=== PATIENT | female | born 1970 | race Caucasian/White ===

== ENCOUNTER 2019-12-13 14:27 | Inpatient (IN) | payer OTHER ==
[~2019-12-13] VITALS: Ht 170.2 cm; Wt 117.9 kg
[~2019-12-13 14:27] MED LIST: ALDACTONE100 MG PO; AMLODIPINE BESYL5 MG PO; ATIVAN1 MG PO; BACTRIM DS TAB1 EACH PO; BUSPIRONE HCL15 MG PO; BUSPIRONE HCL7.5 MG PO; CELEBREX200 MG PO; COUMADIN10 MG PO; COUMADIN5 MG PO; COUMADIN7.5 MG PO; COZAAR100 MG PO; CYCLOBENZAPRINE10 MG PO; DILAUDID4 MG PO; ENOXAPARIN100 MG/1 M SUB-Q; ENOXAPARIN150 MG/1 M SUB-Q; FLEXERIL10 MG PO; FLOMAX0.4 MG PO; GABAPENTIN100 MG PO; GABAPENTIN400 MG PO; HYDROCODONE-CH473 ML; HYDROXYZINE HCL50 MG PO; KEFLEX500 MG PO; LISINOPRIL-HCT1 EAC1 PO; LISINOPRIL10 MG PO; LOSARTAN-HCTZ1 EAC1 PO; LOSARTAN-HCTZ1 EACH PO; LOVENOX150 MG SUB-Q; LOVENOX30 MG; LOVENOX300 MG/3 M SUB-Q; METHOCARBAMOL750 MG PO; NORCO 10-325 T1 EACH PO; NORCO 5-325 TA1 EACH PO; NORVASC10 MG PO; OMEPRAZOLE20 MG PO; ONDANSETRON ODT4 MG PO; OXYBUTYNIN CHLOR5 M1 PO; OXYCODONE HCL10 MG PO; PERCOCET 10-321 EACH PO; PERCOCET 5-3251 EACH PO; PYRIDIUM200 MG PO; ROBAXIN-750750 MG PO; ROBAXIN500 MG PO; SPIRONOLACTONE100 MG NG; TRAMADOL HCL50 MG PO; WARFARIN SODIUM5 MG PO
[2020-01-20] MEDS ORDERED: ULTRAM50 MG PO (14:00)
--- NOTE | 2020-01-25 11:21 | NUR ---
OR STAFF READY TO TAKE PT-THEY LET ME CHECK WITH PT. SHE IS ANXIOUS, WAITING A LONG TIME FOR TODAY. PT REQUESTED PRAYER STRESS OF THE MOMENT HAS STARTED TO TAKE A TOLL. HAD PRAYER WITH PT FOR STRENGTH AND WISDOM FOR STAFF. PT THANKED ME AND ASKED FOR ME TO FOLLOW UP IN M/S
--- NOTE | 2020-01-25 11:24 | NUR ---
01/25/20 1124 MarkiePastora PERI 0928 PT ARRIVED IN PACU WIDE AWAKE C/O LOW, CENTER OF BACK PAIN. 0940 TORADOL 30MG GIVEN IVP PER DR ORDERS. XRAY AT BEDSIDE. 0950 C/O ANXIETY. NEW ORDERS RECEIVED. 0953 VERSED 2MG GIVEN IVP. 1005 FENTANYL 50MCG GIVEN IVP FOR 10/10 BACK PAIN. REPOSITIONED PT TO L SIDE WITH NO RELIEF. BACK TO LAYING SEMI SOL. 1015 FENTANYL 50MCG GIVEN IVP FOR 10/10 BACK PAIN. PILLOW PLACED UNDER BILAT KNEES WITH NO RELIEF NOTED. PILLOWS REMOVED. 1022 FENTANYL 50MCG GIVEN IVP FOR 10/10 BACK PAIN. ICE PACK PLACED BEHIND BACK FOR RELIEF. 1025 ICE PACK REMOVED WITH NO RELIEF NOTED. 1030 FENTANYL 50MCG GIVEN IVP FOR 9/10 BACK PAIN. PT MOVING TOP HALF OF BODY IN BED WITH NO RELIEF. 1035 SPOKE WITH ANESTHESIA AND NEW ORDERS RECEIVED. 1041 OFIRMEV 1GM GIVEN IV. PT SIPPING ON WATER AND TALKING WITH STAFF. PAIN DOWN TO 8/10. 1100 TO MED SURG ROOM 116. BED PLUGGED IN AND CALL LITE IN PLACE. REPORT GIVEN TO KEVYN Lake RN.
--- NOTE | 2020-01-25 11:42 | NUR ---
PT TO FLOOR VIA STRETCHER WITH TASHA BABIN. PT AWAKE AND RATES PAIN IN BACK 8\10. JUST STARTING TO FEEL KNEE. DENIES NAUSEA NOW OR WITH PAST SURGERY. ADVANCED TO REGULAR DIET AFTER DOING WELL WITH ICE WATER AND JELLO. GIVEN PO OXY TO START BETTER PAIN CONTROL. TRINA SLAB WORKER IN ROOM TO ASSESS BACK PAIN. GAVE VERBAL INSTRUCTIONS TO DO NEURO Q4, FOCUSED ON LOWER EXTREMETIES AND BOWEL\BLADDER CONTROL. PT IS NOW ABLE TO LIFT BOTH FEET AND PLANTAR AND DORSAL FLEX BILATERAL FEET.
--- NOTE | 2020-01-25 12:28 | NUR ---
PT SITTING UP IN BED WATCHING TV. PT APPEARS MORE COMFORTABLE. STATES HER BACK AND KNEE ARE STILL HURTING BUT UNDER CONTROL. PT CONTINUES TO WIGGLE FEET AND DENIES WEAKNESS. PT IS CONCERNED ABOUT HER CURRENT ANTI ANXIETY MEDS SHE IS 81 DAYS ALCOHOL FREE. CALLED DR BROUSSARD AND LEFT MESSAGE ON PHONE.
--- NOTE | 2020-01-25 13:27 | NUR ---
PT BACK IN BED AFTER AMBULATING WITH PLASTER MACHINE TENDER. ABLE TO WALK TO BATHROOM AND AROUND IN ROOM. STILL REPORTING BACK PAIN BUT NO WEAKNESS IN LEGS. VS STABLE. IVF FROM SURG ALMOST DONE. AWAITING CALL FROM DR BROUSSARD REGARDING ANXIETY MEDS.
--- NOTE | 2020-01-25 14:42 | NUR ---
FOUND PT IN BED, WATCHING TV. SHE MENTIONED THAT LUNCH WAS SATISFYING AND STAYED DOWN. PT IN SOME BACK PAIN THAT SHE DID NOT HAVE BEFORE SURGERY. LICENSED APPRAISER CHECKING ON CAUSE-TAKING A TOLL ON PT. PT REQUESTED PRAYER AND INCLUDED NEED FOR BACK TO EASE. PT SEEMED RELIEVED FOLLOWING PRAYER AND ASKED FOR ME TO RETURN TO VISIT. WILL FOLLOW UP
--- NOTE | 2020-01-25 14:52 | NUR ---
pt up to restroom. DID WELL ALTHOUGH VERY PAINFUL. GIVEN AB AND VISTIRIL. FRIEND IN ROOM. NEURO CHECK WNL. DENIES WEAKNESS.
[2020-01-25] MEDS ORDERED: HYDROCHLOROTHIA25 MG PO (15:47)
--- NOTE | 2020-01-25 16:07 | NUR ---
PT SITTING UP IN BED TALKING TO [facility]. GOT UP TO BATHROOM WITH MINIMAL ASSIST. PT PAINFUL 8\10. GIVEN SCHED AND PRN MEDS. LESS SHAKY AFTER VISTIRL BUT STILL VISIBLE.
--- NOTE | 2020-01-25 16:07 | NUR ---
MED REC COMPLETE
--- NOTE | 2020-01-25 17:22 | NUR ---
ASSUMED CARE OF PT. RECIEVED BEDSIDE REPORT FROM KEVYN CORDOVA. PT SITTING UP IN BED WATCHING TV. RATES PAIN 6/10, STATES THIS IS A TOLERABLE LEVEL AND DENIES NEED FOR PAIN MEDS AT THIS TIME. DRESSING TO RIGHT KNEE CDI, ICE TO SURGICAL SITE. GIVEN FRESH WATER. IV SL. SATTING 98% ON RA. PT ALERT AND ORIENTED TO ALL. CALL LIGHT WITHIN REACH.
--- NOTE | 2020-01-25 18:36 | NUR ---
PT SBA WITH WALKER TO RESTROOM. VOIDED WITHOUT DIFFICULTY. ATE ALL OF DINNER, [place] WELL. AMB TO RECLINER. REPORTS RIGHT KNEE PAIN 8/10, SEE EMAR FOR MEDS ADMINISTERED. CALL LIGHT WITHIN REACH.
--- NOTE | 2020-01-25 19:54 | NUR ---
PT UP IN HER RECLINER WITH AFFECTED LEG ELEVATED, ALERT, ORIENTED. ON RA SPO2 98%. IV SAILINE LOCKED. DRESSING IS DRY, CLEAN, INTACT. REPORTED SOME RASH UNDER HER PANDUS. STATED HER PAIN 5/10 BUT PT HAS SOME CHRONIC PAIN AND STATED THIS LEVEL IS TOLERABLE NOW. WILL BE BACK FOR ASSESSMENT.
--- NOTE | 2020-01-25 20:24 | NUR ---
WENT WITH PATIENT WALKED OUT OF THE ROOM AND BACK USING WALKER AND GAIT BELT. PATIENT WENT TO THE BATHROOM. PATIENT DID PM CARE, WASH FACE AND BRUSH TEETH. PATIENT IS BACK IN BED. V/S AND I&O TAKEN AND CHARTED. CUP OF ICE PROVIDED. SCD AND ICE PACK ON. CALL LIGHT IN REACH. PATIENT ASKED FOR PAIN MEDS. PRIMARY RN SETH NOTIFIED.
--- NOTE | 2020-01-25 20:45 | NUR ---
PT CALLED FOR PAIN MEDICATIOM. SEE EMAR FOR MEDICATION ADMINISTRATION. PT BACK IN BED AFTER AMBULATION IN A HALLWAY. DONE WITH ASSESSEMENT.
--- NOTE | 2020-01-25 21:43 | NUR ---
WENT TO PT ROOM RE-ASSESS FOR PAIN. PT IN BED, WATCHING TV AND TEXTING BACK AND FORTH WITH FAMILY AND FRIENDS. BREATHING NORMALLY, NO DISTRESS NOTED. STATED HER PAIN IS 5/10, MOSTLY ON R SIDE OF HER AFFECTED KNEE. STATED IT IS TOLARABLE. ICE PACK APPLIED. WILL BW BACK AROUND 2200 TO MEDICATE WITH SCHEDULED ANALGESICS.
--- NOTE | 2020-01-25 22:32 | NUR ---
PT IN BED, REPORTED PAIN 8/10. SEE EMAR FOR MEDICATIONS ADMINISTRATION. TASHA HERBERT IN ROOM TO ASSIST AND OBSERVE. HELPED PT TO THE BATHROOM, VOIDED WITHOUT DIFFICULTIES. BACK TO BED. REQUESTED LIGHT OFF AND DOOR CLOSED.
--- NOTE | 2020-01-25 23:28 | NUR ---
WENT TO REASSESS PT FOR PAIN. ANYLA APPEARS ASLEEP. NO DISTRESS NOTED, BREATHING NORMALLY. SPO2 96% ON RA.
--- NOTE | 2020-01-26 01:54 | NUR ---
PT CALLED FOR BATHROOM. AMBULATED 1PA WITH WALKER. VOIDED. REPORTED PAIN 8/10 AND SOME AGITATION. SEE EMAR FOR MEDICATIONS ADMINISTRATION. VSS, SOME TACHICARDIA NOTED. MILK AND CRACKERS WERE OFFERED. DONE WITH ASSESSMENT.
--- NOTE | 2020-01-26 04:00 | NUR ---
PT CALLED FOR HRLP TO USE A BATHROOM. BM LARGE. VOIDED. STATED HER PAIN 06/26. SEE EMAR FOR MEDCIATION ADMINISTRATION. BACK TO BED.
--- NOTE | 2020-01-26 06:09 | NUR ---
pt alert, oriented, cooperative with cares. ambulated around the unit. voiding without difficulties, had large bm x1. pt has history of dvt prior knee surgery. has foot pums for prophylaxis. has severe degerative arthritis and chronic pain. she had anxiety which pharmacologiclly managed with hydroxyzine. iv saline locked left arm, 20g. dressing dry, clean, intact. used ice pack at night. some tachycardia noted (98-100). pedal pulse 1+, sensation present, no numbness or tingling. pain management wnl.
--- NOTE | 2020-01-26 07:52 | NUR ---
0722: Report received from Minerva CORDOVA. Pt resting in her bed with her call marino within reach, dressing cdi. Pt states she has some pain but that it is controled at this time.
--- NOTE | 2020-01-26 08:33 | NUR ---
PT RATES HER PAIN AT A 6/10 AT THIS TIME, PT MEDICATED ORDERED, SEE EMAR. PT STATES SHE HAS SOME ANXIETY, ALSO SEE EMAR. RIGHT KNEE DRESSING CDI WITH ICE IN PLACE AND GOOD CIRCULATION NOTED WITH NO CHANGES IN FEELING IN HER FOOT. WILL CONTINUE TO MONITOR.
--- NOTE | 2020-01-26 09:58 | OR ---
[facility] [address], [place] [address] Signed DATE OF OPERATION: 01/25/2020 SURGEON: Elke Broussard MD PREOPERATIVE DIAGNOSIS: End-stage arthritis, right knee. POSTOPERATIVE DIAGNOSIS: End-stage arthritis, right knee. PROCEDURE: Right total knee arthroplasty. ANESTHESIA: Spinal with sedation. SPECIMENS AND COMPLICATIONS: There were no specimens or complications. TOURNIQUET TIME: 90 minutes. IMPLANTS: An Attune PS size 7 femur, a size 6 fixed bearing tibial tray, a 7 mm size 7 PS poly, and a 38 mm all-poly patella. WHAT WAS DONE: The patient was taken to the operating room. After anesthesia was induced, the patient was sedated. The right lower extremity was positioned, prepped and draped in the routine sterile fashion. The leg was exsanguinated with elevation and pneumatic tourniquet on the thigh was inflated to 300 mmHg pressure. The knee was then approached through a straight anterior incision. Skin was divided sharply. Subcutaneous tissue was bluntly spread. A small medial flap was created. An anteromedial arthrotomy performed. The patella was turned on edge and about 10 mm were trimmed off the posterior aspect of the patella and drill holes were made for 38 mm all-poly patella button. We then popped the trial patellar button over the patella and indeed, we had reconstituted the 24 mm patellar height. The patella was then slid into the lateral recess and the knee was flexed. We then digitized the distal femur using the [employer] navigation system. We resected the distal femur in neutral varus-valgus, 3 degrees of flexion and taking 10 mm off the distal femur. We then resected the distal femur and Electronically Signed By: ELKE BROUSSARD MD 01/26/20 0958 PATIENT NAME: OMEGA SHEETS OPERATIVE REPORT DATE OF : 68 REPORT #: [id number] PHYSICIAN: ELKE BROUSSARD MD PCP: DUGLAS CAMPOS PAC REPORT IS CONFIDENTIAL AND NOT TO BE RELEASED WITHOUT AUTHORIZATION [facility] [address], [place] [address] Signed removed the wafers. We then transitioned the navigation system of the proximal tibia and again following the prompts, we digitized the proximal tibia. We then resected the proximal tibia in neutral varus-valgus, removing about 4 mm off the medial side, which was the most worn side and placing in about 3 degrees of posterior slope per the Attune protocol. After cutting the proximal tibia, we removed the wafers. The femoral size was then placed on the distal femur and the femur sized to a size 7. We put a size 7 four-in-one cutting block on the distal femur and cut anteriorly, posteriorly and chamfer cuts. All the bone debris was removed and the notch cutting block was placed on the distal femur. We then cut out the notch. We then trialed the size 7 femoral component, and it fit quite snugly. We placed a size 6 tibial tray on the resected tibia and placed a 7 mm PS poly on the trial. The knee was then cycled. We had excellent stability in flexion, and just a 1 mm or 2 of varus-valgus laxity in extension. The knee was copiously irrigated. We then prepared the tibia with a standard reamer and broach. The femur, tibia and patella were then copiously irrigated and meticulously dried. There was a large bone cyst in the anteromedial tibia from what appeared to be an old ACL tract. We cleaned this out or morselized the anterior chamber cut and packed it into the defect. We then cemented the tibial, femoral and patellar components in place with a 7 mm trial. We held the knee in full extension while the cement cured. Once the cement cured, we removed the trial and removed marginal cementophytes. Again, the knee was irrigated and drained. We were happiest with a 7 mm insert. The 8 was a little too tight in maximum flexion and the 6 could not snug enough. We therefore put the 7 mm poly on the tibial tray, snapped it into place. The wound was irrigated, closed in standard fashion, and sterile dressings were applied. The patient was awakened and taken to recovery room where she arrived in stable condition. Counts were correct and antibiotic protocols were followed. Elke Broussard MD [facility] /[id number] Copies: ~ Electronically Signed By: ELKE BROUSSARD MD 01/26/20 0958 PATIENT NAME: OMEGA SHEETS OPERATIVE REPORT DATE OF : 68 REPORT #: [id number] PHYSICIAN: ELKE BROUSSARD MD PCP: DUGLAS CAMPOS PAC REPORT IS CONFIDENTIAL AND NOT TO BE RELEASED WITHOUT AUTHORIZATION
--- NOTE | 2020-01-26 11:10 | NUR ---
DISCUSSED PLAN OF CARE WITH PATIENT, ROUNDING WHILE PATIENT WORKING WITH PHYSICAL THERAPY.
--- NOTE | 2020-01-26 11:55 | NUR ---
MARIANA WRAP AND CAST PADDING REMOVED. THE FOAM AND OPSITE REMAINS IN PLACE TO INCISION WITH A SCANT AMOUT OF OLD DRAINAGE NOTED. A CALL WAS PLACED DR BROUSSARD FOR CLARIFICATION IF HE WISHES TO HAVE TO OPSITE AND FOAM DRESSING REMOVED WELL. AWAITING A CALL BACK AT THIS TIME.
--- NOTE | 2020-01-26 11:59 | NUR ---
DR BROUSSARD CALLED BACK AND STATES HE WISHES TO LEAVE THE FOAM AND OPSITE IN PLACE.
--- NOTE | 2020-01-26 14:01 | NUR ---
Pt resting in her bed and states she is about to do physical therapy. Dressing has some scant amount of old drainage with no s/s of infection. Pt requesting additional pain medication prior to therapy, see emar.
--- NOTE | 2020-01-26 15:24 | NUR ---
PT RESTING IN HER CHAIR WITH HER FEET ELEVATED AFTER HAVING RECENTLY FINISHED WORKING WITH THERAPY. SHE STATES HER PAIN IS A 7 AT THIS TIME AND SHE STATES HER PAIN IS TOLERABLE AT THIS TIME UNTIL SHE RECEIVES HER SCHEDULED TORADOL.
--- NOTE | 2020-01-26 16:59 | NUR ---
Pt now states her pain is a 6 which she states is acceptable and she reqeusted to go for a walk and is now walking in the halls with the DOCK WORKER.
--- NOTE | 2020-01-26 19:20 | NUR ---
SHIFT REPORT RECIEVED FROM FABIOLA CORDOVA. PT REPORTS 7/10 PAIN IN RIGHT KNEE. RN WILL PROVIDE PRN PAIN MED AND ICE. PT UP TO BR AND BACK TO BED. NO OTHER NEEDS, CALL LIGHT IN REACH.
--- NOTE | 2020-01-26 20:10 | NUR ---
PER REQUEST OF PRIMARY RN, THIS RN IN ROOM TO ADMINISTER PAIN MEDICATION. PRN OXYCODONE ADMINISTERED FOR 8/10 PAIN IN RIGHT KNEE (SEE EMAR). VS AND I&O'S COLLECTED AND CHARTED. FRESH ICE WATER AND ICE PACK ALSO PROVIDED. CALL LIGHT IN REACH.
--- NOTE | 2020-01-26 20:30 | NUR ---
ASSESSMENT COMPLETED. MILD EDEMA NOTED TO INNER RIGHT KNEE. BANDAGING DRY AND INTACT. QUARTER SIZE DRY AREA OF RED ON BANDAGE. CMS INTACT IN RIGHT FOOT, NUMBNESS IN AREA OF LOWER BANDAGE. THIS HAS NOT CHANGED SINCE PREVIOUS SHIFT. LUNGS CLEAR. IV CDI, WNL, FLUSHED WELL. SCHEDULED MEDS PROVIDED. NO OTHER NEEDS AT THIS TIME. CALL LIGHT IN REACH.
--- NOTE | 2020-01-26 22:22 | NUR ---
SCHEDULED MED PROVIDED. NO OTHER NEEDS AT THIS TIME. CALL LIGHT IN REACH.
--- NOTE | 2020-01-26 23:10 | NUR ---
HELPED PT TO THE BATHROOM AND BACK TO BED WITH HER FWW. BEDSIDE TABLE AND CALL LIGHT IN REACH. PT ASKED FOR PAIN MEDS, I INFORMED HER RN HAJA.
--- NOTE | 2020-01-26 23:23 | NUR ---
PT COMPLAINS OF PAIN AND CRAMPING TO INNER RIGHT THIGH. NO REDNESS, WARMTH OR VISIBLE CRAMPING NOTED. CMS INTACT IN RIGHT LEG. PRN MED PROVIDED FOR MUSCLE CRAMPS. NO OTHER NEEDS, CALL LIGHT IN REACH.
--- NOTE | 2020-01-27 01:43 | NUR ---
SCHEDULED MED PROVIDED. CMS INTACT IN BLE WITH NUMBNESS ON MEDIAL RIGHT LEG. NO OTHER NEEDS, CALL LIGHT IN REACH.
--- NOTE | 2020-01-27 03:47 | NUR ---
PT RESTING IN BED, EYES CLOSED. RR EVEN, UNLABORED. CALL LIGHT IN REACH.
--- NOTE | 2020-01-27 04:26 | NUR ---
SCHEDULED MED PROVIDED. PT STATES SHE HAS ANXIETY, PRN ANXIETY MED PROVIDED. ASSESSMENT COMPLETED. EDEMA TO INNER KNEE AND BLE NOTED. NO CHANGES TO DRY, RED BLOOD ON BANDAGING. NUMBNESS TO MEDIAL RIGHT LOWER LEG. CMS INTACT IN FEET AND HANDS. IV DRESSING CHANGED. NO OTHER NEEDS, CALL LIGHT IN REACH.
--- NOTE | 2020-01-27 04:47 | NUR ---
PT HAS SLEPT OFF AND ON THIS SHIFT. PT ANXIETY AND PAIN MANAGED WITH PRN AND SCHEDULED MEDS. IV DRESSING CHANGED, IV FLUSHED WELL, WNL. PT TOLERATED ICE PACKS, FOOT PUMPS, HEEL PTORECTORS AND DIET WELL. PT DID WELL WITH FWW, SBA. PT HAD MUSCLE CRAMPING ON INNER RIGHT THIGH, MANAGED WITH PRN MED. AREA UNDER PANNUS SLIGHTLY RED, NYSTOP USED. PT STATE SHE HAS NUMBNESS TO INNER RIGHT CALF, NO CHANGES. CMS INTACT IN BOTH FEET. EDEMA NOTED IN BLE AND INNER RIGHT KNEE. BANDAGING HAS QUARTER SIZE DRIED RED BLOOD, NO CHANGES OVER SHIFT.
--- NOTE | 2020-01-27 06:29 | NUR ---
PT CALLS TO REPORT 8/10 PAIN IN RIGHT KNEE. PRN PAIN MED PROVIDED. CMS INTACT IN BLE. NO OTHER NEEDS AT THIS TIME. CALL LIGHT IN REACH.
--- NOTE | 2020-01-27 07:46 | NUR ---
PATIENT LYING IN BED WITH EYES OPEN. NURSING REPORT GIVEN AT PATEINT BEDSIDE. RESPIRATIONS EQUAL AND UNLABORED ON RA. RIGHT KNEE DRESSING C/D/I. SCD'S/HEEL PROTECTORS IN PLACE. CALL LIGHT IN REACH.
--- NOTE | 2020-01-27 08:25 | NUR ---
PATIENT LYING IN BED FINISHING BREAKFAST. VISITOR IN ROOM. PATIENT REPORTS PAIN 8/10. MEDICATION ADMINISTERED PER ORDER. LUNCH SOUNDS CLEAR, SLIGHTLY DIMINISHED IN BASES. VITALS STABLE. RESPIRATIONS EQUAL AND UNLABORED ON RA. PATIENT INQUIRING ABOUT NEXT OXY DOSE, NURSE INFORMED PT OF NEXT ADMINISTRATION TIME OF 1030. SCD'S ON, HEEL PROTECTORS REFUSED. CALL LIGHT IN REACH.
--- NOTE | 2020-01-27 10:05 | NUR ---
PT WORKING WITH PHYSICAL THERAPY. REPORTING PAIN 07/27. SCHEDULED [facility] ADMINSTERED.
--- NOTE | 2020-01-27 10:15 | NUR ---
Spoke with Yamila. She states she has been quite painful and does not think she can dc today. She lives at [facility] and has walker, wc, cane, shower chair, and commode from her mother. Will use equipment if needed. 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 Pt states she has prepared meals in advance and thinks she will be able to care for herself. Encouraged to discuss this tomorrow to see how she is doing with PT.
--- NOTE | 2020-01-27 11:49 | NUR ---
PATIENT CALL TO GO TO THE REST ROOM . PATIENT AMBULATED BY HER SELF WITH A STAND BY ASSISIT. PATIENT IS BACK TO HER BED HEEL PUMPS ARE BACK ON PATIENT FRESH WATER WAS GIVEN AND CALL LIGHT IN REACH.
--- NOTE | 2020-01-27 11:50 | NUR ---
PATIENT SITTING UP IN BED WATCHING TV. ACCIDENTALLY PUSHED CALL BUTTON. PATIENT STATES PAIN IS NOW 4/10 AFTER PAIN MED ADMINISTRATION AND SHE IS COMFORTABLE. SCD'S IN PLACE. PATIENT REMOVED ICE PACKS FROM RT KNEE. NO ADDITIONAL NEEDS REPORTED AT THIS TIME. CALL LIGHT IN REACH.
--- NOTE | 2020-01-27 12:26 | NUR ---
PT SITTING UP IN BED, WATCHING TV AND STARTING LUNCH. I COULD TELL THAT SHE WAS STRUGGLING. PAIN IS REALLY INTENSE SINCE AM P.T. BUT WORKING HARD TO STAY THE COURSE. PT FINDS COMFORT IN PRAYER, WE PRAYED FOR STRENGTH, EASE OF PAIN AND ABILITY TO CONTINUE TO REHAB. GAVE PT A G.POST, SHE THANKED ME.
--- NOTE | 2020-01-27 14:20 | NUR ---
PATIENT LYING IN BED WITH EYES OPEN. REPORTS PAIN 8/10. ORAL DILAUDID AND TYLENOL ADMINISTERED. SCD'S IN PLACE, HEEL PROTECTORS REFUSED. ASSESSMENT PERFORMED. LEFT HAND SALINE LOCKED. FLUSHES WELL. RESPIRATIONS EQUAL AND UNLABORED ON RA. CALL LIGHT IN REACH.
--- NOTE | 2020-01-27 16:00 | NUR ---
PT REPORTING PAIN, OXYCODONE AND SCHEDULED TORIDOL ADMINSTERED. PT SITTING UP IN CHAIR. VISITORS IN ROOM. CALL LIGHT IN REACH.
--- NOTE | 2020-01-27 17:25 | NUR ---
PATIENT SITTING UP IN CHAIR EATING DINNER. STATES THAT HER LEFT KNEE WAS PAINFUL IN CURRENT POSITION. NURSE RECLINED CHAIR AND ELEVATED LEG ON PILLOW. APPLIED ICE PACKS. PATIENT STATES REPOSITIONING HELPED. RESPIRATIONS EQUAL AND UNLABORED ON RA. LEFT AC IV WAS HANGING DOWN AND IRRITATING PATIENT. WRAPPED IV IN [place]. PAIN REPORTED AT 5/10. SWCD'S IN PLACE. CALL LIGHT IN REACH.
--- NOTE | 2020-01-27 19:15 | NUR ---
RECEIVED REPORT FROM SN KEVIN. pt RESTING IN BED. NO REQUESTS AT THIS TIME. RECENTLY MEDICATED FOR PAIN. WHITEBOARD UPDATED. CALL LIGHT WITHIN REACH.
--- NOTE | 2020-01-27 20:26 | NUR ---
DISCUSSED PAIN MANAGEMENT AT LENGTH. pt AGREEABLE TO PLAN. UP TO VOID AND BACK TO BED 1PA FWW. ASSESSMENT DONE. MEDICATIONS GIVEN (SEE MAR). VITALS AND I&O RECORDED. NO FURTHER REQUESTS AT THIS TIME. CALL LIGHT WITHIN REACH.
--- NOTE | 2020-01-27 22:12 | NUR ---
IN TO GIVE SCHEDULED AND PRN PAIN MEDS FOR 8/10 PAIN. THE LOWER END OF THE DRESSING MEASURED 44.5 CM, MIDDLE 47 CM, AND UPPER 61 CM. EDUCATED pt ON SIGNS AND SYMPTOMS TO WATCH FOR. pt REPORTED FEELING "KIND OF LIKE A STRETCHED MUSCLE, SIMILAR TO WHAT I'VE HAD BEFORE WITH BLOOD CLOTS" WILL CONTINUE TO MONITOR. CALL LIGHT WITHIN REACH.
--- NOTE | 2020-01-27 23:46 | NUR ---
ROUNDED ON pt. NO CHANGE IN STATUS. pt DISCUSSED THAT THE PAIN/SENSATION HAS NOT CHANGED SINCE DR BROUSSARD ASSESSED THE pt. DISCUSSED PAIN MANAGEMENT. pt UP TO VOID AND BACK TO BED. CALL LIGHT WITHIN REACH.
--- NOTE | 2020-01-28 00:34 | NUR ---
WENT TO HER ROOM TO TURN ON HER SCD'S. PT NEEDS NOTHING AT THIS TIME. BEDSIDE TABLE AND CALL LIGHT IN REACH.
--- NOTE | 2020-01-28 01:58 | NUR ---
HELPED PT TO THE BATHROOM WITH HER FWW.BROUGHT HER 4 ICE PACKS AND FRESH ICE WATER.
--- NOTE | 2020-01-28 02:09 | NUR ---
pt UP TO VOID AND BACK TO BED. ASSESSMENT DONE. MEASUREMENTS ON LEG SLIGHTLY LOWER OR UNCHANGED. pt REPORTS NO CHANGE IN PAIN OR SENSATION. PRN AND SCHEDULED PAIN MED GIVEN (SEE MAR). CALL LIGHT WITHIN REACH. NO FURTHER REQUESTS AT THIS TIME.
--- NOTE | 2020-01-28 04:29 | NUR ---
ROUNDED ON pt. REQUESTED PRN PAIN MEDS FOR 7/10 PAIN, STATED "IT'S A LITTLE BETTER" UP TO VOID AND BACK TO BED. NO FURTHER REQUESTS AT THIS TIME. CALL LIGHT WITHIN REACH.
--- NOTE | 2020-01-28 06:14 | NUR ---
pt RESTING IN BED. SUPERVISOR POULTRY FARM IN TO DO VITALS AND I&O. PRN PAIN MEDICATION GIVEN FOR 05/26 PAIN. pt UP TO VOID WITH SUPERVISOR POULTRY FARM. CALL LIGHT WITHIN REACH.
--- NOTE | 2020-01-28 06:29 | NUR ---
pt AWAKE MOST OF NIGHT. PRN PAIN MEDS Q2H, PAIN REMAINED 7/10. COMPLAINING OF NUMBNESS RIGHT INNER CALF. CALF TENDER. pt DENIES CHANGES IN PAIN AND TENDERNESS SINCE PHYSICIAN ASSESSMENT. ENCOURAGED REST. 1PA FWW. IV SL. TOLERATING REGULAR DIET. WORKING WITH PT. USES CALL LIGHT APPROPRIATELY.
--- NOTE | 2020-01-28 07:30 | NUR ---
PATIENT LYING IN BED WITH EYES CLOSED. SCD'S IN PLACE. LIGHTS OFF IN ROOM. USER EXPERIENCE LEAD NURSE STATES THAT PATIENT WAS PAINFUL THROUGHOUT THE NIGHT AND DIDN'T SLEEP WELL. WILL CONTINUE TO MONITOR PAIN LEVELS TODAY. CALL LIGHT IN REACH.
--- NOTE | 2020-01-28 09:00 | NUR ---
PATIENT SITTING UP IN BED FINISHING BREAKFAST. ASSESSMENT PERFORFORMED. RESPIRATIONS EQUAL AND UNLABORED ON RA. PAIN REPORTED 8/10. PATEINT REQUESTED PAIN MEDS. NURSE ASSISTED PATIENT UP TO BATHROOM. PT AMBULATED INDEPENDENTLY USING FWW. NURSE ENCOURAGED PT TO MOVE TO CHAIR AFTER RESTROOM AND ELEVATE RT KNEE ON PILLOW. SCD'S IN PLACE, HEEL PROTECTORS REFUSED. PATIENT ANTICIPATING PHYSICAL THERAPY LATER THIS MORNING. CALL LIGHT IN REACH.
--- NOTE | 2020-01-28 09:30 | NUR ---
Patient sitting up in chair visiting with friend. Patient states that she has already washed her hands and face this am. Patient said she will brush her teeth when she gets up to bathroom again. call button in reach. no other needs at this time.
--- NOTE | 2020-01-28 11:33 | NUR ---
PATIENT IN CHAIR RECLINING WITH RT KNEE ELEVATED ON PILLOW. PERFORMED PAIN RE-ASSESSMENT, PT REPORTS PAIN AAS 5/10. INFORMED PT THAT HER NEXT PAIN MED COULD BE GIVEN AT 1145. PATIENT WAS AGREEABLE WITH THIS. SCD'S IN PLACE. CALL LIGHT IN REACH.
--- NOTE | 2020-01-28 11:36 | NUR ---
PATIENT WORKING WITH PT. AMBULATING HALLWAYS WITH FWW.
--- NOTE | 2020-01-28 11:45 | NUR ---
Spoke with Yamila. States she is painful, but doing well with PT. States Dr. Cano told her she would stay through Friday. Pt. feels she will be ready for dc at that time. Denies needs for DME as she already has at home. Has prepared meals to heat. Plans to dc on Friday.
--- NOTE | 2020-01-28 12:28 | NUR ---
PATIENT CALLED NURSE FOR PAIN MEDICATION. STATES PAIN IS 8/10 AFTER PATIENT WORKED WITH PHYSICAL THERAPY. ADMINISTERED OXY (PATIENT SAYS OXY SEEMS TO BE MORE EFFECTIVE AT REDUCING PAIN FOR HER THAN DILAUDID). PATIENT CURRENTLY EATING LUNCH IN CHAIR, WOULD LIKE TO RETURN TO BED AFTER FINISHING MEAL. DR. DA SILVA ROUNDED ON PATIENT WHILE SHE WAS EATING. INFORMED PATIENT HE BELIEVED THAT SHE IS PROGRESSING WELL. ICE PACKS REFILLED AND PLACED ON RT KNEE. CALL LIGHT IN REACH.
--- NOTE | 2020-01-28 12:46 | NUR ---
PT ADMITTED THAT SHE HAD NOT SLEPT-PAIN TOO INTENSE, AND KNEE SWOLLEN. PT HAD ME PRAY FOR RELIEF-SHE THANKED ME
--- NOTE | 2020-01-28 12:52 | NUR ---
PATIENT REQUESTED TO MOVE BACK TO BED. AMBULATED INDEPENDENTLY WITH FWW. SCD'S IN PLACE. CALL LIGHT IN REACH.
--- NOTE | 2020-01-28 14:32 | NUR ---
PT WORKING WITH PHYSICAL THERAPY.
--- NOTE | 2020-01-28 16:00 | NUR ---
PT REPORTING ANXIETY, PRN MEDICATIONS GIVEN. FLEXIRIL FOR MUSCLE SPASMS ALSO ADMINSITERED. PT UP TO BATHROOM TO VOID. PAIN 05/26. SCHEDULED TORIDOL ADMINSTERED. BACK IN BED WITH FOOT PUMPS IN PLACE. CALL LIGHT IN REACH ICE TO RIGHT KNEE REFRESHED.
--- NOTE | 2020-01-28 16:33 | NUR ---
PT REPORTING 05/26 PAIN. PRN MEDICAITONS GIVEN. CALL LIGHT IN REACH
--- NOTE | 2020-01-28 18:25 | NUR ---
SBA WITH FWW TO AMBULATE IN HALLS PER PT REQUEST. ABLE TO COMPLETE 1 LAP. PT NOW SITTING UP IN CHAIR. ICE PACKS REFRESHED. PERSONAL ITEMS AND CALL LIGHT IN REACH. DENEIS FURTHER NEEDS.
--- NOTE | 2020-01-28 18:27 | NUR ---
PT HAD GOOD DAY, PAIN WELL CONTROLLED. DRESSING WITH SOME SHADOWING, NO NEW DRAINAGE. WORKED WELL WITH PHYSICAL THERAPY. FOOT PUMPS ON WHILE IN BED. UP TO CHAIR FOR MEALS.
--- NOTE | 2020-01-28 19:05 | NUR ---
SHIFT REPORT RECIEVED FROM DUGLAS CORDOVA. NO NEEDS AT THIS TIME. CALL LIGHT IN REACH.
--- NOTE | 2020-01-28 19:48 | NUR ---
BILINGUAL MEDICAL ASSISTANT ROUNDING NOTE. PT ASSISTED FROM BATHROOM BACK TO BED WITH SBA AND FWW. PT TOLERATED WELL. PILLOWS AND BLANKETS HANDED TO PT SO THAT SHE COULD PLACE THEM SHE DESIRED PER PT. PT DENIES QUSTIONS OR CONCERNS AT THIS TIME. CALL LIGHT IN REACH. WHITE BOARD UPDATED.
--- NOTE | 2020-01-28 20:44 | NUR ---
ASSESSMENT, VS AND I&O COMPLETE. NO CHANGES TO BANDAGE FROM PREVIOUS SHIFT, DRIED AREAS OF BLOOD. PAIN 6/10, PRN PAIN MED PROVIDED. PT STATES SHE IS ANXIOUS, PRN ANXIETY MED PROVIDED. SCHEDULED MEDS PROVIDED. EDEMA NOTED TO RIGHT THIGH AND CALF. OLD BRUISING TO RLE NOTED. IV DRESSING CHANGED, FLUSHED WELL. NO OTHER NEEDS, CALL LIGHT IN REACH.
--- NOTE | 2020-01-28 22:53 | NUR ---
SCHEDULED PAIN MED PROVIDED, PAIN 05/26. NO OTHER NEEDS AT THIS TIME. CALL LIGHT IN REACH.
--- NOTE | 2020-01-29 01:05 | NUR ---
PT RESTING IN BED, EYES CLOSED. RR EVEN, UNLABORED. CALL LIGHT IN REACH.
--- NOTE | 2020-01-29 02:01 | NUR ---
SCHEDULED MED PROVIDED. PT UP TO BR AND BACK TO BED. ICE PROVIDED. NO OTHER NEEDS. CALL LIGHT IN REACH.
--- NOTE | 2020-01-29 03:53 | NUR ---
PT STATES PAIN IS 8/10 IN RIGHT THIGH AND KNEE. CMS INTACT. NO RED OR WARM AREAS NOTED. SCHEDULED AND PRN PAIN MED PROVIDED. ICE PACK PROVIDED. NO OTHER NEEDS. CALL LIGHT IN REACH.
--- NOTE | 2020-01-29 05:11 | NUR ---
PT HAS SLEPT OFF AND ON THIS SHIFT. PAIN HAS BEEN WELL MANAGED WITH SCHEDULED AND PRN PAIN MEDS. PT TOLERATED ICE, FOOT PUMPS WELL. IV FLUSHED WELL, WNL. NO CHANGES TO BANDAGE, DRY BLOOD SPOTS. SWELLING AND NUMBNESS UNCHAGED IN RLE.
--- NOTE | 2020-01-29 07:58 | NUR ---
REPORT RECIEVED. PT IN BED, REPORTS PAIN 05/26. CALL LIGHT AND PERSONAL ITEMS WITHIN REACH. DENIES NEEDS.
--- NOTE | 2020-01-29 10:00 | NUR ---
ASSESSMENT COMPLETED. MEDICAITOSN GIVEN. DNEIS NEEDS.
[2020-01-29] MEDS ORDERED: DILAUDID4 MG PO (10:07)
[2020-01-29] MEDS ORDERED: TYLENOL EXTRA500 MG PO (10:09)
[2020-01-29] MEDS ORDERED: OXYCODONE HCL10 MG PO ×2 (10:10→10:20)
[2020-01-29] MEDS ORDERED: COUMADIN10 MG PO (10:11)
[2020-01-29] MEDS ORDERED: XARELTO20 MG PO ×2 (10:11→10:20)
[2020-01-29] MEDS ORDERED: COZAAR100 MG PO (10:21)
--- NOTE | 2020-01-29 10:51 | NUR ---
PATIENT IN BED RESTING. WARM BLANKET GIVEN. PATIENT ASKED FOR PAIN MEDS, RN NOTIFIED. CALL LIGHT IN REACH. NO FURTHER NEEDS AT THIS TIME.
--- NOTE | 2020-01-29 12:39 | NUR ---
PT REPORTING 7/10 PAIN. PRN MEDICATION GIVEN. PT UP TO BATHROOM.
--- NOTE | 2020-01-29 13:40 | NUR ---
PATIENT DRESSED HERSELF IN PERSONAL CLOTHES. PATIENT NOW WORKING WITH PT. CALL LIGHT IN REACH. NO FURTHER NEEDS AT THIS TIME. IV TAKEN OUT UPON RN REQUEST. CATH INTACT AND LOOKED GOOD, RN NOTIFIED.
--- NOTE | 2020-01-29 14:40 | NUR ---
DISCHARGE INSTRUCTIONS PROVIDED. PT WIT HNO QUESTIONS. VERBALIZED UNDERSTADING.
--- NOTE | 2020-01-30 11:16 | DS ---
[facility] [address], [place] [address] Signed ADMISSION DATE: 01/25/2020 DISCHARGE DATE: 01/29/2020 DIAGNOSES AT THE TIME OF DISCHARGE: 1. Osteoarthritis, right knee. 2. History of a deep venous thrombosis with pulmonary embolism. PROCEDURE: Right total knee arthroplasty. HEALTHCARE RECEPTIONIST: Hospitalist benefits sales consultant on the case. HISTORY OF PRESENT ILLNESS: Patient has a long history of severe bilateral lower extremity osteoarthritis. She has gotten to the point where she no longer gets any symptomatic relief with conservative management and she presents for elective total knee arthroplasty on the right side. HOSPITAL COURSE: She was admitted to Day Surgery on the 24 of January. She was taken to the operating room. Under spinal anesthesia, she underwent a right total knee arthroplasty using an Attune PS system with a size #7 femur, a size #6 tibia with a 7 mm poly insert, and a 38 mm all-poly patella. There were no intraoperative complications. Postoperatively, she has done well and progressed rapidly through physical therapy. She does have a long history of chronic pain issues and opioid use, and has therefore required a little more pain medicine than average but is doing quite well alternating Dilaudid with oxycodone. She has never had issues with opioid constipation or nausea. Because of her previous history of DVT/PE, she was bridged with Xarelto because she did not want to take the injections and has been on Coumadin 10 mg. Today her INR is still 1.1. So we will discharge her on another couple days of Xarelto, keep her on 10 mg of Coumadin today and have her followup in the Coumadin clinic either next Friday or next . We have written our prescriptions for Dilaudid 4 mg and oxycodone 10 mg each, which can be taken 1-2 every 4 hours as needed for pain. We also ordered outpatient physical therapy for and would like to see her back in 4 weeks. Her wound is clean and dry. We will ask the staff to change her dressing before she goes home today. Electronically Signed By: LAST BROUSSARD MD 01/30/20 1116 PATIENT NAME: OMEGA SHEETS DISCHARGE SUMMARY DATE OF : 68 REPORT #: [id number] PHYSICIAN: LAST BROUSSARD MD PCP: DUGLAS CAMPOS PAC REPORT IS CONFIDENTIAL AND NOT TO BE RELEASED WITHOUT AUTHORIZATION [address] [address] Signed Last Broussard MD WFB/MODL /[id number] Copies: ~ Electronically Signed By: LAST BROUSSARD MD 01/30/20 1116 PATIENT NAME: OMEGA SHEETS DISCHARGE SUMMARY DATE OF : 68 REPORT #: [id number] PHYSICIAN: LAST BROUSSARD MD PCP: DUGLAS CAMPOS PAC REPORT IS CONFIDENTIAL AND NOT TO BE RELEASED WITHOUT AUTHORIZATION
--- NOTE | 2020-02-01 07:33 | NUR ---
progress notes, h&p, face sheet, pt eval and notes faxed to OP therapy at the [facility].
== END 2020-01-29 14:30 | disposition home or self-care (01) | DRG 470 ==
LOC: MS 12-21 09:30 → DSVR 01-25 05:40 → MS 01-25 06:45
PROVIDERS: ADMIT Orthopaedic Surgery
PROC: 3E0T3BZ Introduction of Anesthetic Agent into Peripheral Nerves and Plexi, Percutaneous Approach (ICD-10-PCS; 2020-01-25)
PROC: 3E0T33Z Introduction of Anti-inflammatory into Peripheral Nerves and Plexi, Percutaneous Approach (ICD-10-PCS; 2020-01-25)
PROC: 0SRC0J9 Replacement of Right Knee Joint with Synthetic Substitute, Cemented, Open Approach (ICD-10-PCS; principal; 2020-01-25 06:45)
DX: M17.11 Unilateral primary osteoarthritis, right knee (principal); Z68.41 Body mass index [BMI] 40.0-44.9, adult; G89.18 Other acute postprocedural pain; I10 Essential (primary) hypertension; F41.9 Anxiety disorder, unspecified; E66.01 Morbid (severe) obesity due to excess calories; K21.9 Gastro-esophageal reflux disease without esophagitis; G89.4 Chronic pain syndrome; Z79.899 Other long term (current) drug therapy; Z79.01 Long term (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; Z87.891 Personal history of nicotine dependence; Z86.718 Personal history of other venous thrombosis and embolism; Z86.711 Personal history of pulmonary embolism; Z74.09 Other reduced mobility
CPT/HCPCS: 01402; 36415; 64447; 73560; 76942; 80048; 85025; 85610; 94760; 94762; 97110; 97116; 97162; 97530; C1713; C1776; J0131; J0690; J1100; J1885; J2001; J2250; J2370; J2704; J2795; J3010; J7121

== ENCOUNTER 2020-03-25 08:33 | Emergency (ER) | payer OTHER ==
[~2020-03-25] VITALS: Ht 170.2 cm; Wt 113.4 kg
--- OUTSIDE RECORDS SUMMARY | ~2020-03-25 | XMS | Encounter Summary ---
Demographics + + + | Address | [address] | | | [place] [address] | + + + | Home Phone | | + + + | Preferred Language | Unknown | + + + | Marital Status | Single | + + + | Hinduism Affiliation | 1013 | + + + | Race | Unknown | + + + | Ethnic Group | Unknown | + + + Author + + + | Author | [facility] | | | and [place]esto[place] | + + + | Organization | [facility] | | | and Ernestoana | [...] Team Providers + +------+ + | Care Director Sports Name | Role | Phone | + +------+ + | Noe Regan DO | PCP | | + +------+ + Reason for Referral Evaluate & Treat (Routine) +--------+ + + + + + | Status | Reason | Specialty | Diagnoses / | Referred By | Referred To | | | | | Procedures | Contact | Contact | +--------+ + + + + + | Closed | Specialty | | Diagnoses | Holland | Justin | | | Services | | Other | Charles Alvarez MD | Carroll | | | Required | | diseases of | [address] | MD Kemal | | | | | vocal cords | [address] | [address] | | | | | Dysphonia | [place] | [address] | | | | | | [place], [place] | [place], [place] | | | | | | [address] | [address] | | | | | | Phone: | Phone: | | | | | | [phone] | [phone] | | | | | | Fax: | Fax: | | | | | | [phone] | [phone] | +--------+ + + + + + Encounter Details +--------+ + + + + | Date | Type | Department | Care Team | Description | +--------+ + + + + | 12/08/ | Orders Only | [facility] [place] | Charles Lino MD | Dysphonia (Primary | | 2014 | | OTOLARYNGOLOGY [address] | [address] | Dx) | | | | [address] | [address] [place], | | | | | [place], [place] | [place] [address] | | | | | [address] | [phone] | | | | | [phone] | | | +--------+ + + + + Social History + + + +--------+ + | Tobacco Use | Types | Packs/Day | Years | Date | | | | | Used | | + + + +--------+ + | Former Smoker | Cigarettes | 0.75 | 15 | Quit: 11/17/2013 | + + + +--------+ + + +---+---+---+ | Smokeless Tobacco: | | [...] as of this encounter Plan of Treatment + + +--------+ + + | Name | Type | Priori | Associated Diagnoses | Order Schedule | | | | ty | | | + + +--------+ + + | Ambulatory referral | Outpatient | Routin | Dysphonia | Expected: | | to ENT | Referral | e | | 12/08/2014, Expires: | | | | | | 12/08/2015 | + + +--------+ + + documented as of this encounter Visit Diagnoses + + | Diagnosis | + + | Dysphonia - Primary | + + documented in this encounter"
--- OUTSIDE RECORDS SUMMARY | ~2020-03-25 | XMS | Encounter Summary ---
Demographics + + + | Address | [address] | | | [place] [address] | + + + | Home Phone | | + + + | Preferred Language | Unknown | + + + | Marital Status | Single | + + + | Mandaen Affiliation | 1013 | + + + | Race | Unknown | + + + | Ethnic Group | Unknown | + + + Author + + + | Author | [facility] | | | and Ernesto[place] | + + + | Organization | [facility] | | | and Ernestoana [...] Team Providers + +------+ + | Care Hydro Pneumatic Tester Name | Role | Phone | + +------+ + | Noe Regan DO | PCP | | + +------+ + Reason for Visit Auth/Cert +--------+--------+ + + + + | Status | Reason | Specialty | Diagnoses / | Referred By | Referred To | | | | | Procedures | Contact | Contact | +--------+--------+ + + + + | Closed | | | Diagnoses | | | | | | | Other | | | | | | | diseases of | | | | | | | vocal cords | | | | | | | Dysphonia | | | | | | | Other | | | | | | | diseases of | | | | | | | vocal cords, | | | | | | | Dysphonia | | | | | | | | | | | | | | Procedures | | | | | | | MI | | | | | | | LARYNGOSCOPY | | | | | | | ,DIRCT,OP | | | | | | | SCOP,EXC | | | | | | | TUMR | | | | | | | BRONCHOSCOPY | | | | | | | /LARYNGOSCOP | | | | | | | Y/ESOPHAGOSC | | | | | | | OPY | | | +--------+--------+ + + + + Encounter Details +--------+ + + + + | Date | Type | Department | Care Team | Description | +--------+ + + + + | 07/12/ | Anesthesia | [facility] | Kolby Benoit | | | 2013 | Event | [facility] OP | MD Willie [address] | | | | | [address] | [address] [place] | | | | | [place] | [address] | | | | | [address] | | | | | | [phone] | | | +--------+ + + + + Anesthesia Record + + + + + | Procedure Name | Responsible | Anesthesia Start | Anesthesia Stop Time | | | Anesthesiologist | Time | | + + + + + | DIRECT | | 07/12/14 1128 | 07/12/14 1234 | | MICROLARYNGOSCOPY W/ | | | | | EXCISION OF LEFT | | | | | VOCAL CORD GROWTH | | | | | (N/A Throat) | | | | + + + + + +----+---+ + + | Da | T | Event | Comment | | te | i | | | | | m | | | | | e | | | +----+---+ + + | 08 | 1 | An Checkout | Pre-use anesthesia machine/equipment checkout. | | /2 | 1 | | | | 6/ | 2 | | | | 20 | 3 | | | | 14 | | | | +----+---+ + + | | 1 | An Start | Reassessment prior to anesthesia induction/procedure. | | | 1 | | | | | 2 | | | | | 8 | | | +----+---+ + + | | 1 | AN | Per surgeon request | | | 1 | Antibiotic | | | | 3 | declined | | | | 2 | | | +----+---+ + + | | 1 | Preoxygenat | | | | 1 | ed | | | | 3 | | | | | 2 | | | +----+---+ + + | | 1 | an luh now | | | | 1 | | | | | 3 | | | | | 2 | | | +----+---+ + + | | 1 | | | | | 1 | | | | | 3 | | | | | 3 | | | +----+---+ + + | | 1 | An | | | | 1 | Induction | | | | 3 | | | | | 7 | | | +----+---+ + + | | 1 | An | | | | 1 | Intubation | | | | 3 | | | | | 9 | | | +----+---+ + + | | 1 | Breathing | | | | 2 | Spontaneous | | | | 1 | ly | | | | 6 | | | +----+---+ + + | | 1 | Oropharynx | | | | 2 | Suctioned | | | | 1 | | | | | 6 | | | +----+---+ + + | | 1 | Moving | | | | 2 | Purposefull | | | | 2 | y | | | | 1 | | | +----+---+ + + | | 1 | Extubated | | | | 2 | Awake | | | | 2 | | | | | 1 | | | +----+---+ + + | | 1 | An Stop | Patient handed off to recovery nurse. | | | 3 | | | | | 4 | | | +----+---+ + + | | 1 | an stop | | | | 2 | data | | | | 4 | | | | | 3 | | | +----+---+ + + +------+ | Meds | +------+ + +--------+ | Name | Total | + +--------+ | midazolam | 2 mg | + +--------+ | lidocaine 2% (PF) | 60 mg | + +--------+ | propofol | 150 mg | + +--------+ | dexamethasone | 10 mg | + +--------+ | ondansetron | 4 mg | + +--------+ | HYDROmorphone | 2 mg | + +--------+ | rocuronium | 20 mg | + +--------+ | lactated ringers (LR) infusion | 750 mL | + +--------+ + + | Name | + + | N2O Flow Rate (L/Min) | + + | O2 Flow Rate (L/Min) | + + | Insp O2 | + + | Exp JELENA | + + | Air Flow Rate (L/Min) | + + + + | No blood administrations on file. | + + +--------+ + + + | Type | Details | Placement | Removal | +--------+ + + + | [READ | 07/12/14; 1053; healing within | 07/12/14 1053 by | 07/12/14 1505 by | | ONLY] | expectations; 07/12/14; 1505 | Michelle Torres, | Gracie Tapia, TASHA | | | | TASHA | | | Clemh | | | | | eral | | | | | IV - | | | | | Single | | | | | Lumen | | | | | | | | | +--------+ + + + | Airway | Mask Ventilation: EZ; Airway | 07/12/14 1145 by | 07/12/14 1221 by | | | Grade: I; Successful Technique: | | Kolby Benoit, | | | Mac; Laryngoscope Blade Size: 3; | | MD | | | Airway Type: endotracheal, oral, | | | | | cuffed, disposable; Size: 6.5; | | | | | Tube Reference Point: secure and | | | | | patent; Trauma: none; Other | | | | | Equipment: tooth guard; Placement | | | | | Check: verified by capnography, | | | | | verified by auscultation; Placed | | | | | By: Anesthesiologist; Removal | | | | | Date: 07/12/14; Removal Time: | | | | | 1221 | | | +--------+ + + + documented in this encounter Social History + + + +--------+ + [...] Visit Diagnoses Not on filedocumented in this encounter Administered Medications + +--------+ +-------+------+------+ | Medication Order | MAR | Action | Dose | Rate | Site | | | Action | Date | | | | + +--------+ +-------+------+------+ | dexamethasone (DECADRON) 10 | Given | 07/12/20 | 10 mg | | | | mg/mL injection Intravenous, | | 14 11:37 | | | | | PRN, Starting Fri07/12/14 at | | AM PDT | | | | | 1137, Anesthesia Intra-op | | | | | | + +--------+ +-------+------+------+ +---+---+ | | | +---+---+ + +-------+ +------+---+---+ | HYDROmorphone (PF) (DILAUDID) 2 | Given | 07/12/20 | 1 mg | | | | mg/mL injection PRN, Pain, | | 14 11:35 | | | | | Starting Fri07/12/14 at 1134, | | AM PDT | | | | | Anesthesia Intra-op | | | | | | + +-------+ +------+---+---+ +-------+ +------+---+---+ | Given | 07/12/20 | 1 mg | | | | | 14 11:34 | | | | | | AM PDT | | | | +-------+ +------+---+---+ +---+---+ | | | +---+---+ + +-------+ +-------+---+---+ | lidocaine (PF) 2% injection | Given | 07/12/20 | 60 mg | | | | PRN, Starting Fri07/12/14 at | | 14 11:37 | | | | | 1137, Anesthesia Intra-op | | AM PDT | | | | + +-------+ +-------+---+---+ +---+---+ | | | +---+---+ + +-------+ +------+---+---+ | midazolam (VERSED) 1 mg/mL | Given | 07/12/20 | 2 mg | | | | injection Intravenous, PRN, | | 14 11:28 | | | | | Anxiety, Starting Fri07/12/14 at | | AM PDT | | | | | 1128, Anesthesia Intra-op | | | | | | + +-------+ +------+---+---+ +---+---+ | | | +---+---+ + +-------+ +------+---+---+ | ondansetron (ZOFRAN) injection | Given | 07/12/20 | 4 mg | | | | PRN, Nausea, Vomiting, Starting | | 14 11:37 | | | | | Fri07/12/14 at 1137, Anesthesia | | AM PDT | | | | | Intra-op | | | | | | + +-------+ +------+---+---+ +---+---+ | | | +---+---+ + +-------+ +--------+---+---+ | propofol (DIPRIVAN) injection | Given | 07/12/20 | 150 mg | | | | PRN, Starting Fri07/12/14 at | | 14 11:37 | | | | | 1137, Anesthesia Intra-op | | AM PDT | | | | + +-------+ +--------+---+---+ +---+---+ | | | +---+---+ + +-------+ +-------+---+---+ | rocuronium (ZEMURON) injection | Given | 07/12/20 | 20 mg | | | | Intravenous, PRN, Starting Tue | | 14 11:37 | | | | | 07/12/14 at 1137, Anesthesia | | AM PDT | | | | | Intra-op | | | | | | + +-------+ +-------+---+---+ +---+---+ | | | +---+---+ documented in this encounter"
--- OUTSIDE RECORDS SUMMARY | ~2020-03-25 | XMS | Encounter Summary ---
Demographics + + + | Address | [address] | | | [place] [address] | + + + | Home Phone | | + + + | Preferred Language | Unknown | + + + | Marital Status | Single | + + + | Restoration Affiliation | 1013 | + + + | Race | Unknown | + + + | Ethnic Group | Unknown | + + + Author + + + | Author | [facility] | | | and [place] | + + + | Organization | [facility] | | | and [place]esto[place] [...] Team Providers + +------+ + | Care Operations Intelligence Name | Role | Phone | + +------+ + | Kelly Alfonso | PCP | | | PA | | | + +------+ + Encounter Details +--------+ + + + + | Date | Type | Department | Care Team | Description | +--------+ + + + + | 05/12/ | Orders Only | [facility] | Bernard Doe, | | | 2017 | | NEPRHOLOGY [facility] | [address] | | | | | [address] | [address] | | | | | [address] [place], [place] | [place], [place] | | | | | [address] | [address] | | | | | [phone] | [phone] | | | | | | | [...] | + +--------+ + + + | EXTERNAL LAB: CBC | Routin | 05/12/2018 | | Results for this | | | e | 12:00 AM | | procedure are in the | | | | PDT | | results section. | + +--------+ + + + | URINALYSIS WITH | Routin | 05/12/2018 | | Results for this | | MICROSCOPIC IF | e | 12:00 AM | | procedure are in the | | INDICATED | | PDT | | results section. | + +--------+ + + + | PROTEIN/CREATININE | Routin | 05/12/2018 | | Results for this | | RATIO, URINE | e | 12:00 AM | | procedure are in the | | | | PDT | | results section. | + +--------+ + + + | URIC ACID | Routin | 05/12/2018 | | Results for this | | | e | 12:00 AM | | procedure are in the | | | | PDT | | results section. | + +--------+ + + + | MAGNESIUM | Routin | 05/12/2018 | | Results for this | | | e | 12:00 AM | | procedure are in the | | | | PDT | | results section. | + +--------+ + + + | RENAL FUNCTION PANEL | Routin | 05/12/2018 | | Results for this | | | e | 12:00 AM | | procedure are in the | | | | PDT | | results section. | + +--------+ + + + documented in this encounter Results Protein/Creatinine Ratio, Urine (05/12/2018 12:00 AM PDT) + + + + + + | Component | Value | Ref Range | Performed | Pathologist | | | | | At | Signature | + + + + + + | Protein/Cre | 382.4 (A) | 0 - 150 | EXTERNAL | | | at Ratio | | | LAB | | + + + + + + + + | Specimen | + + | Urine specimen | | (specimen) | + + + + + | Narrative | Performed At | + + + | PROTEIN, URINE - 26 - 0.0 - 50.0 CREATININE, URINE - 68 | EXTERNAL LAB | + + + + +---------+ + + | Performing | Address | City/State/Zipcode | Phone Number | | Organization | | | | + +---------+ + + | EXTERNAL LAB | | | | + +---------+ + + Urinalysis with Microscopic if Indicated (05/12/2018 12:00 AM PDT) + + + + + + | Component | Value | Ref Range | Performed | Pathologist | | | | | At | Signature | + + + + + + | Color | Yellow | | EXTERNAL | | | | | | LAB | | + + + + + + | Clarity | Slightly Cloudy | | EXTERNAL | | | | | | LAB | | + + + + + + | Spec Grav, | 1.013 | 1.005 - 1.030 | EXTERNAL | | | Fluid | | | LAB | | + + + + + + | Leukocyte | Negative | | EXTERNAL | | | Esterase, | | | LAB | | | Urine | | | | | + + + + + + | Nitrite, | Negative | | EXTERNAL | | | Urine | | | LAB | | + + + + + + | Urobilinoge | Normal | | EXTERNAL | | | n, Urine | | | LAB | | + + + + + + | Total | NEG | | EXTERNAL | | | Protein | | | LAB | | + + + + + + | pH, Urine | 7 | 5 - 9 | EXTERNAL | | | | | | LAB | | + + + + + + | Blood, | Comment: SMALL | | EXTERNAL | | | Urine | | | LAB | | + + + + + + | Ketones | NEG | | EXTERNAL | | | | | | LAB | | + + + + + + | Bilirubin, | Negative | | EXTERNAL | | | Urine | | | LAB | | + + + + + + | Glucose, | Negative | | EXTERNAL | | | Urine | | | LAB | | + + + + + + + + | Specimen | + + | Urine specimen | | (specimen) | + + + + + | Narrative | Performed At | + + + | CASTS - NEGATIVE WBC'S - -4 RBC'S - -4 CRYSTALS - NEGATIVE | EXTERNAL LAB | | BACTERIA - NEGATIVE | | + + + + +---------+ + + | Performing | Address | City/State/Zipcode | Phone Number | | Organization | | | | + +---------+ + + | EXTERNAL LAB | | | | + +---------+ + + External Lab: CBC (05/12/2018 12:00 AM PDT) + + + + + + | Component | Value | Ref Range | Performed | Pathologist | | | | | At | Signature | + + + + + + | WBC | 5.6 | 4.5 - 11.0 10 | EXTERNAL | | | | | | LAB | | + + + + + + | Red Blood | 4.74 | 3.8 - 5.1 10 | EXTERNAL | | | Cells | | | LAB | | | Counted | | | | | + + + + + + | Hemoglobin | 13.6 | 12.0 - 16.0 | EXTERNAL | | | | | g/dL | LAB | | + + + + + + | Hematocrit, | 40.4 | 35 - 45 % | EXTERNAL | | | POC | | | LAB | | + + + + + + | MCV | 85.1 | 81 - 99 fL | EXTERNAL | | | | | | LAB | | + + + + + + | MCH | 29 | 27 - 33 pg | EXTERNAL | | | | | | LAB | | + + + + + + | MCHC | 34 | 30 - 36 g/dL | EXTERNAL | | | | | | LAB | | + + + + + + | Platelet | 302 | 140 - 440 K/ L | EXTERNAL | | | Count | | | LAB | | | Plasma | | | | | + + + + + + | RDW-CV | 15.9 (A) | 10.5 - 15.0 % | EXTERNAL | | | | | | LAB | | + + + + + + | MPV | | fL | EXTERNAL | | | | | | LAB | | + + + + + + | Differentia | | | EXTERNAL | | | l Type | | | LAB | | + + + + + + | % Segmented | 71.3 | 39 - 80 % | EXTERNAL | | | | | | LAB | | | Neutrophils | | | | | + + + + + + | % | 12.8 (A) | 24 - 44 % | EXTERNAL | | | Lymphocytes | | | LAB | | + + + + + + | % Monocytes | 11.3 | 0 - 12 % | EXTERNAL | | | | | | LAB | | + + + + + + | % | 3.7 | 0 - 6 % | EXTERNAL | | | Eosinophils | | | LAB | | + + + + + + | % Basophils | 0.9 | 0 - 2 % | EXTERNAL | | | | | | LAB | | + + + + + + | Absolute | | / L | EXTERNAL | | | Segmented | | | LAB | | | Neutrophils | | | | | + + + + + + | Absolute | | / L | EXTERNAL | | | Lymphocytes | | | LAB | | + + + + + + | Absolute | | / L | EXTERNAL | | | Monocytes | | | LAB | | + + + + + + | Absolute | | / L | EXTERNAL | | | Eosinophils | | | LAB | | + + + + + + | Absolute | | / L | EXTERNAL | | | Basophils | | | LAB | | + + + + + + + + | Specimen | + + | Blood specimen | | (specimen) | + + + +---------+ + + | Performing | Address | City/State/Zipcode | Phone Number | | Organization | | | | + +---------+ + + | EXTERNAL LAB | | | | + +---------+ + + Uric Acid (05/12/2018 12:00 AM PDT) + +-------+ + + + | Component | Value | Ref Range | Performed | Pathologist | | | | | At | Signature | + +-------+ + + + | Uric Acid | 5.1 | 2.3 - 6.6 | EXTERNAL | | | | | | LAB | | + +-------+ + + + + + | Specimen | + + | Blood specimen | | (specimen) | + + + +---------+ + + | Performing | Address | City/State/Zipcode | Phone Number | | Organization | | | | + +---------+ + + | EXTERNAL LAB | | | | + +---------+ + + Magnesium (05/12/2018 12:00 AM PDT) + +-------+ + + + | Component | Value | Ref Range | Performed | Pathologist | | | | | At | Signature | + +-------+ + + + | Magnesium | 1.9 | 1.7 - 2.5 mg/dL | EXTERNAL | | | | | | LAB | | + +-------+ + + + + + | Specimen | + + | Blood specimen | | (specimen) | + + + +---------+ + + | Performing | Address | City/State/Zipcode | Phone Number | | Organization | | | | + +---------+ + + | EXTERNAL LAB | | | | + +---------+ + + Renal Function Panel (05/12/2018 12:00 AM PDT) + +-------+ + + + | Component | Value | Ref Range | Performed | Pathologist | | | | | At | Signature | + +-------+ + + + | Glucose, | 80 | 70 - 100 mg/dL | EXTERNAL | | | Fasting | | | LAB | | + +-------+ + + + | BUN | 18 | 6 - 23 mg/dL | EXTERNAL | | | | | | LAB | | + +-------+ + + + | Creatinine | 0.68 | 0.60 - 1.35 | EXTERNAL | | | | | mg/dL | LAB | | + +-------+ + + + | PHOSPHORUS | | mg/dL | EXTERNAL | | | | | | LAB | | + +-------+ + + + | Albumin | 4.0 | 3.5 - 5.0 | EXTERNAL | | | | | | LAB | | + +-------+ + + + | Na | 140 | 132 - 143 | EXTERNAL | | | | | mmol/L | LAB | | + +-------+ + + + | K | 4.5 | 3.6 - 5.1 | EXTERNAL | | | | | mmol/L | LAB | | + +-------+ + + + | Cl | 104 | 95 - 112 mmol/L | EXTERNAL | | | | | | LAB | | + +-------+ + + + | CO2 | 23 | 19 - 31 mmol/L | EXTERNAL | | | | | | LAB | | + +-------+ + + + | Anion Gap | 17.5 | 7 - 21 mmol/L | EXTERNAL | | | | | | LAB | | + +-------+ + + + | eGFR if not | | | EXTERNAL | | | | | | LAB | | | [place]RA[place]I | | | | | + +-------+ + + + | Phosphorus, | 3.6 | 2.5 - 5.0 | EXTERNAL | | | Inorganic | | | LAB | | + +-------+ + + + | BUN/Creatin | 26.5 | 6.0 - 28.6 | EXTERNAL | | | ine Ratio | | | LAB | | + +-------+ + + + | Calcium | 9.7 | 8.4 - 10.2 | EXTERNAL | | | | | mg/dL | LAB | | + +-------+ + + + | Estimated | 92 | mg/dL | EXTERNAL | | | GFR | | | LAB | | + +-------+ + + + + + | Specimen | + + | Blood specimen | | (specimen) | + + + +---------+ + + | Performing | Address | City/State/Zipcode | Phone Number | | Organization | | | | + +---------+ + + | EXTERNAL LAB | | | | + +---------+ + + documented in this encounter Visit Diagnoses Not on filedocumented in this encounter"
--- OUTSIDE RECORDS SUMMARY | ~2020-03-25 | XMS | Encounter Summary ---
Demographics + + + | Address | [address] | | | [place] [address] | + + + | Home Phone | | + + + | Preferred Language | Unknown | + + + | Marital Status | Single | + + + | Jew Affiliation | 1013 | + + + | Race | Unknown | + + + | Ethnic Group | Unknown | + + + Author + + + | Author | [facility] | | | and [place] | + + + | Organization | [facility] | | | and [place] [...] Team Providers + +------+ + | Care Processing Manager Name | Role | Phone | + +------+ + | Noe Regan DO | PCP | | + +------+ + Reason for Visit +---------+ + | Reason | Comments | +---------+ + | Post Op | vocal cord surgery 07/12/14, patient states that she has some pain | | | still | +---------+ + Evaluate & Treat (Routine) +--------+--------+ + + + + | Status | Reason | Specialty | Diagnoses / | Referred By | Referred To | | | | | Procedures | Contact | Contact | +--------+--------+ + + + + | Closed | | Otolaryngolog | Diagnoses | [place], | Charles Lino | | | | y | hoarseness/ | Noe Alvarez, | MD Kim [address] | | | | | pcp | DO [address] | | | | | [place]/ pt/ | [address] | [address] | | | | | [place] | [place] | [place], | | | | | Procedures | [address] | [place] [address] | | | | | NEW PATIENT | Phone: | Phone: | | | | | | [phone] | [phone] | | | | | | Fax: | Fax: | | | | | | [phone] | [phone] | +--------+--------+ + + + + Encounter Details +--------+---------+ + + + | Date | Type | Department | Care Team | Description | +--------+---------+ + + + | 07/21/ | Office | [facility] | Charles Lino MD | Other diseases of | | 2013 | Visit | OTOLARYNGOLOGY [address] | [address] | vocal cords (Primary | | | | [address] | [address] [place], | Dx) | | | | [place] | [place] [address] | | | | | [address] | [phone] | | | | | [phone] | | | +--------+---------+ + + + Social History + + [...] + + documented as of this encounter Last Filed Vital Signs + + + + + | Vital Sign | Reading | Time Taken | Comments | + + + + + | Blood Pressure | - | - | | + + + + + | Pulse | - | - | | + + + + + | Temperature | - | - | | + + + + + | Respiratory Rate | - | - | | + + + + + | Oxygen Saturation | - | - | | + + + + + | Inhaled Oxygen | - | - | | | Concentration | | | | + + + + + | Weight | 103.4 kg (228 lb) | 07/21/2014 3:08 PM | | | | | PDT | | + + + + + | Height | 170.2 cm (5' 7") | 07/21/2014 3:08 PM | | | | | PDT | | + + + + + | Body Mass Index | 35.71 | 07/21/2014 3:08 PM | | | | | PDT | | + + + + + documented in this encounter Progress Notes Charles Lino MD - 07/21/2014 3:27 PM PDTSee dictation # [id number] signed by Charles Lino MD at 07/21/2014 3:30 PM Charles Henderson MD - 07/21/2014 12:00 AM PDT [facility] [address] [address] FAX: [phone] OFFICE VISIT The patient had a direct laryngoscopy with an excision of a polypoid area on the left vocal arytenoid area. This was carried out about 9 days ago. The patient comes in for followup v dipak. 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 No evidence of any cancer is noted. She is almost back to normal. There is still a little discomfort when she swallows, but in general is healing up nicely. She is advised, because of the nature of the lesion, that this area should be reexamined ag devika in about 3 months' time, to be sure as it heals there is no recurrence of any abnormali ty. She will set up to be seen at that point. Charles Lino MD / MINA JOB #: [id number] signed by Charles Lino MD at 07/21/2014 4:48 PM PDTdocumente d in this encounter Plan of Treatment Not on filedocumented as of this encounter Visit Diagnoses + + | Diagnosis | + + | Other diseases of vocal cords - Primary | + + documented in this encounter
--- OUTSIDE RECORDS SUMMARY | ~2020-03-25 | XMS | Encounter Summary ---
Demographics + + + | Address | [address] | | | [place] [address] | + + + | Home Phone | | + + + | Preferred Language | Unknown | + + + | Marital Status | Single | + + + | Spiritism Affiliation | 1013 | + + + | Race | Unknown | + + + | Ethnic Group | Unknown | + + + Author + + + | Author | [facility] | | | and [place] | + + + | Organization | [facility] | | | and Ernesto[place] [...] Team Providers + +------+ + | Care Revolving Inventory Clerk Name | Role | Phone | + +------+ + | Noe Regan DO | PCP | | + +------+ + Reason for Visit + + + | Reason | Comments | + + + | Pharyngitis | | + + + Encounter Details +--------+ + + + + | Date | Type | Department | Care Team | Description | +--------+ + + + + | 12/27/ | Telephone | [facility] [place] | Charles Lino MD | Pharyngitis | | 2015 | | OTOLARYNGOLOGY [address] | [address] | | | | | [address] | [address], | | | | | [place], [place] | [place] [address] | | | | | [address] | [phone] | | | | | [phone] | | | +--------+ + + + [...]
--- OUTSIDE RECORDS SUMMARY | ~2020-03-25 | XMS | Encounter Summary ---
Demographics + + + | Address | [address] | | | [place] [address] | + + + | Home Phone [...] + + + | Author | [facility] | | | and [place] | + + + | Organization | [facility] | | | and Ernestoana [...] Team Providers + +------+ + | Care Co Op Name | Role | Phone | + [...] Description | +--------+--------+ + + + | 01/26/ | Refill | [facility] [place] | Charles Lino MD | Medication Refill | | 2015 | | OTOLARYNGOLOGY [address] | [address] | | | | | [address] | [address], | | | | | [place], [place] | [place] [address] | | | | | [address] | [phone] | | | | | [phone] | | | +--------+--------+ + + + [...]
--- OUTSIDE RECORDS SUMMARY | ~2020-03-25 | XMS | Encounter Summary ---
Demographics + + + | Address | [address] | | | [place] [address] | + + + | Home Phone [...] + + | Author | [facility] | | | and [place]esto[place] | + + + | Organization | [facility] | | | and Ernestoana [...] Team Providers + +------+ + | Care Electrodynamicist Name | Role | Phone | + [...] | MED CTR EXTERNAL | [address] | | | | | IMAGING [address] | [address] | | | | | [place] | [place] [address] | | | | | [place] [address] | | | | | | [phone] | | | +--------+ + + + [...]
--- OUTSIDE RECORDS SUMMARY | ~2020-03-25 | XMS | Encounter Summary ---
Demographics + + + | Address | [address] | | | [place] [address] | + + + | Home Phone | | + + + | Preferred Language | Unknown | + + + | Marital Status | Single | + + + | Caodaism Affiliation | 1013 | + + + | Race | Unknown | + + + | Ethnic Group | Unknown | + + + Author + + + | Author | [facility] | | | and [place] | + + + | Organization | [facility] | | | and [...] Team Providers + +------+ + | Care Metal Polisher And Buffer Apprentice Name | Role | Phone | + +------+ + | Noe Regan DO | PCP | | + +------+ + Reason for Visit + + + | Reason | Comments | + + + | New Patient | hoarseness, has been going for about 2 months, throat gets really | | | dry then starts to hurt | + + + Evaluate & Treat (Routine) +--------+--------+ + + + + | Status | Reason | Specialty | Diagnoses / | Referred By | Referred To | | | | | Procedures | Contact | Contact | +--------+--------+ + + + + | Closed | | Otolaryngolog | Diagnoses | Shereen, | Charles Lino | | | | y | hoarseness/ | Noe E, | MD [address] | | | | | pcp | DO [address] | | | | | [place]/ pt/ | [address] | [address] | | | | | [place] | [place] | [place], | | | | | Procedures | [address] | [place] [address] | | | | | NEW PATIENT | Phone: | Phone: | | | | | | [phone] | [phone] | | | | | | Fax: | Fax: | | | | | | [phone] | [phone] | +--------+--------+ + + + + Encounter Details +--------+---------+ + + + | Date | Type | Department | Care Team | Description | +--------+---------+ + + + | 06/13/ | Office | [facility] | Charles Lino MD | Other diseases of | | 2013 | Visit | OTOLARYNGOLOGY [address] | [address] | vocal cords (Primary | | | | [address] | [address] [place], | Dx); Dysphonia | | | | [place] | [place] [address] | | | | | [address] | [phone] | | | | | [phone] | | | +--------+---------+ + + + Social History + +-------+ [...] + + + | Blood Pressure | 160/78 | 06/13/2014 10:29 AM | | | | | PDT | | + + + + + | Pulse | 80 | 06/13/2014 10:29 AM | | | | | PDT [...] + + + + | Weight | 106.6 kg (235 lb) | 06/13/2014 10:29 AM | | | | | PDT | | + + + + + | Height | 170.2 cm (5' 7") | 06/13/2014 10:29 AM | | | | | PDT | | + + + + + | Body Mass Index | 36.81 | 06/13/2014 10:29 AM | | | | | PDT | | + + + + + documented in this encounter Progress Notes Charles Lino MD - 06/13/2014 5:21 PM PDTSee dictation #[id number] signed by Gumaro Lino MD at 06/13/2014 5:27 PM Charles Henderson MD - 06/13/2014 12:00 AM PDT [facility] AUDI[facility]Y [address] [address] FAX: [phone] OFFICE VISIT NEW PATIENT VISIT HISTORY: The patient has been having hoarseness between 2-3 months, it has gradually become worse, it is always hoarse. No difficulty with swallowing. No pain or discomfort. She come s in to have this evaluated. She at times will note that her voice is a little bit with noreen y poor volume, little losses of sound occasionally, and then the rest of the time it is gra velly and hoarse. No other complaints in the ENT area. EXAMINATION GENERAL: Shows a 43-year-old female patient. She is communicating well, but again, the voic e is very gravelly. HEENT: Skin of the face, nose and ears appears to be healthy. Parotid and submandibular gla nds were smooth. Facial movement is symmetrical without any weakness noted. Ear canals are open, they are clean. The drums are clear. There is no middle ear effusion or abnormality n oted. Nasal passages: No obstruction, no mass or lesion noted. Right side of the nose was t hen sprayed well with some Mo-Synephrine and topical Xylocaine. Floor of the mouth, buccal mucosa, hard palate, teeth, lips and gums are healthy. No mass seen in the oropharynx and posterior pharyngeal wall was smooth. Tongue and soft palate are smooth and move symmetrica lly. NECK: There were no masses or lymphadenopathy. Thyroid gland is smooth. Trachea is mid line. Good range of motion of the neck without any pain or discomfort noted. The fiberoptic scope was then used. It was placed through the right nasal passage without difficulty. No mass or lesion in this passage or in the nasopharynx. Rosenmueller's fossae a re open and clear. Eustachian tube openings appear to be healthy. Posterior and lateral pha ryngeal jones were smooth. Base of the tongue, vallecula, and epiglottis, there is no mass or lesion or thrush or abnormality noted. Vocal cords move symmetrically, no evidence of an y paralysis. On the left vocal cord she has a whitish growth in the middle half of the voca l cord, that appears to be a tumor type of growth, nothing in the anterior commissure and n othing over the arytenoid area. The right vocal cord appeared smooth and clear. No redness or interarytenoid edema. Piriform sinuses were smooth. The scope was then removed. IMPRESSION: A GROWTH OF THE LEFT VOCAL CORD. PLAN: The patient will be scheduled for a direct microlaryngoscopy with excision of the lef t vocal cord growth. 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 These occ urred after she had knee surgery with replacement of her ACL. She has been on Coumadin now for a number of years. She has been advised she will need to get off of this for about 5 da ys before surgery and certainly would need to be off it for at least 5 days after surgery. She will have thromboguards on during surgery, even though it will be a short procedure, an d the specimen will be sent for path examination. Charles Lino MD / MINA JOB #: [id number] signed by Charles Lino MD at 06/14/2014 7:55 AM PDTdocumentarmand more in this encounter Plan of Treatment Not on filedocumented as of this encounter Visit Diagnoses + + | Diagnosis | + + | Other diseases of vocal cords - Primary | + + | Dysphonia | + + documented in this encounter
--- OUTSIDE RECORDS SUMMARY | ~2020-03-25 | XMS | Encounter Summary ---
Demographics + + + | Address | [address] | | | [place] [address] | + + + | Home Phone | | + + + | Preferred Language | Unknown | + + + | Marital Status | Single | + + + | Rastafari Affiliation | 1013 | + + + | Race | Unknown | + + + | Ethnic Group | Unknown | + + + Author + + + | Author | [facility] | | | and [place] | + + + | Organization | [facility] | | | and [...] Team Providers + +------+ + | Care Instructional Coordinator Name | Role | Phone | + [...] | MED CTR EXTERNAL | [address] | | | | | IMAGING [address] | [address] | | | | | [place] | [place] [address] | | | | | [place] [address] | | | | | | [phone] | | | +--------+ + + + [...]
--- OUTSIDE RECORDS SUMMARY | ~2020-03-25 | XMS | Encounter Summary ---
Demographics + + + | Address | [address] | | | [place] [address] | + + + | Home Phone | | + + + | Preferred Language | Unknown | + + + | Marital Status | Single | + + + | Jehovah'S Witness Affiliation | 1013 | + + + | Race | Unknown | + + + | Ethnic Group | Unknown | + + + Author + + + | Author | [facility] | | | and [place] | + + + | Organization | [facility] | | | and [...] Providers + +------+ + | Care Senior Customer Service Representative Name | Role | Phone | + [...] | | [place] | [place] [address] | | | | | [address] | | | | | | [phone] | | | +--------+ + + + [...]
--- OUTSIDE RECORDS SUMMARY | ~2020-03-25 | XMS | Clinical Summary ---
Demographics + + + | Address | [address] | | | [place] [address] | + + + | Home Phone | | + + + | Preferred Language | Unknown | + + + | Marital Status | Single | + + + | Episcopal Affiliation | 1013 | + + + | Race | Unknown | + + + | Ethnic Group | Unknown | + + + Author + + + | Author | [facility] | | | and [place] | + + + | Organization | [facility] | | | and [place] [...] Team Providers + +------+ + | Care Plastic Dolls Mold Filler Name | Role | Phone | + +------+ + | Kelly Alfonso | PCP | | | PA | | | + +------+ + Allergies + + + + + + | Active Allergy | Reactions | Severity | Noted | Comments | | | | | Date | | + + + + + + | Adhesive & Tape | Other (See Comments) | Medium | 10/28/20 | Blisters | | | | | 18 | | + + + + + + | Oxycodone-Acetaminop | Diarrhea, Nausea And | Low | 10/21/20 | | | hen | Vomiting | | 18 | | + + + + + + Medications + + + +---------+------+------+-------+ | Medication | Sig | Dispensed | Refills | Star | End | Statu | | | | | | t | Date | s | | | | | | Date | | | + + + +---------+------+------+-------+ | warfarin | Take 5 mg by mouth | | 0 | | | Activ | | (COUMADIN) 5 mg | Daily. | | | | | e | | tablet | | | | | | | + + + +---------+------+------+-------+ | cyclobenzaprine | Take 10 mg by mouth | | 0 | | | Activ | | (FLEXERIL) 10 mg | 3 times daily as | | | | | e | | tablet | needed for Muscle | | | | | | | | spasms. | | | | | | + + + +---------+------+------+-------+ | warfarin | Take 7.5 mg by mouth | | 0 | | | Activ | | (COUMADIN) 7.5 mg | daily. | | | | | e | | tablet | | | | | | | + + + +---------+------+------+-------+ | gabapentin | taje 1 capsule by | | 0 | | | Activ | | (NEURONTIN) 400 mg | mouth twice daily | | | | | e | | capsule | | | | | | | + + + +---------+------+------+-------+ | omeprazole | Take 20 mg by mouth | | 0 | | | Activ | | (PRILOSEC) 20 mg | Daily. | | | | | e | | capsule | | | | | | | + + + +---------+------+------+-------+ | amLODIPine | Take 10 mg by mouth | | 0 | | | Activ | | (NORVASC) 10 MG | Daily. | | | | | e | | tablet | | | | | | | + + + +---------+------+------+-------+ | | Take 1 tablet by | | 0 | | | Activ | | losartan-hydrochloro | mouth Daily. | | | | | e | | thiazide (HYZAAR) | | | | | | | | 100-25 MG per tablet | | | | | | | + + + +---------+------+------+-------+ | spironolactone | Take 100 mg by mouth | | 0 | 06/2 | | Activ | | (ALDACTONE) 100 MG | Daily. | | | 9/20 | | e | | tablet | | | | 18 | | | + + + +---------+------+------+-------+ | cetirizine | Take 10 mg by mouth | | 0 | | | Activ | | (ZYRTEC) 10 mg | Daily. | | | | | e | | tablet | | | | | | | + + + +---------+------+------+-------+ Active Problems + + + | Problem | Noted Date | + + + | Sacroiliitis | 03/15/2019 | + + + | DDD (degenerative disc disease), lumbar | 10/28/2018 | + + + | Facet arthropathy | 10/28/2018 | + + + | Low back pain | 10/28/2018 | + + + | Spondylolisthesis of lumbar region | 10/28/2018 | + + + | Generalized abdominal mass | 06/08/2018 | + + + | Hypertension | 05/15/2018 | + + + | Class 2 obesity in adult | 09/15/2017 | + + + | History of Coumadin therapy | 09/15/2017 | + + + | History of DVT (deep vein thrombosis) | 09/15/2017 | + + + | Proteinuria | 09/15/2017 | + + + | Stress incontinence of urine | 09/15/2017 | + + + | Tobacco abuse | 09/15/2017 | + + + | Dysphonia | 12/08/2014 | + + + | Leukoplakia of vocal cords | 07/12/2014 | + + + Family History + + +------+ + | Medical History | Relation | Name | Comments | + + +------+ + | Other cancer | Father | | Skin | + + +------+ + | No known problems | Maternal | | | | | Grandfath | | | | | er | | | + + +------+ + | Diabetes | Maternal | | | | | Grandmoth | | | | | er | | | + + +------+ + | Breast cancer | Mother | | | + + +------+ + | Hypertension | Mother | | | + + +------+ + | Other cancer | Mother | | Leukemia | + + +------+ + | Cancer | Other | | | + + +------+ + | No known problems | Paternal | | | | | Grandfath | | | | | er | | | + + +------+ + | No known problems | Paternal | | | | | Grandmoth | | | | | er | | | + + +------+ + + +------+ + + | Relation | Name | Status | Comments | + +------+ + + | Father | | | | + +------+ + + | Maternal Grandfather | | | | + +------+ + + | Maternal Grandmother | | | | + +------+ + + | Mother | | | | + +------+ + + | Other | | | Cousin | + +------+ + + | Paternal Grandfather | | | | + +------+ + + | Paternal Grandmother | | | | + +------+ + + Social History + + + [...] recent travel history available. | + + Last Filed Vital Signs + + + + + | Vital Sign | Reading | Time Taken | Comments | + + + + + | Blood Pressure | 140/87 | 04/22/2019 12:29 PM | | | | | PDT | | + + + + + | Pulse | 87 | 04/22/2019 12:29 PM | | | | | PDT | | + + + + + | Temperature | 36.5 C (97.7 F) | 05/15/2018 10:06 AM | | | | | PDT [...] Weight | 103.4 kg (228 lb) | 03/15/2019 9:10 AM | | | | | PDT | | + + + + + | Height | 170.2 cm (5' 7") | 03/15/2019 9:10 AM | | | | | PDT | | + + + + + | Body Mass Index | 35.71 | 03/15/2019 9:10 AM | | | | | PDT | | + + + + + Plan of Treatment + + + + + | Health Maintenance | Due Date | Last Done | Comments | + + + + + | Vaccine: | | | | | Pneumococcal 19-64 | 5 | | | | (1 of 1 - PPSV23) | | | | + + + + + | Vaccine: | | | | | Dtap/Tdap/Td (1 - | 0 | | | | Tdap) | | | | + + + + + | Cervical Cancer | | | | | Screening (Pap) | 9 | | | + + + + + | Breast Cancer | | | | | Screening | 4 | | | + + + + + | Colorectal Cancer | | | | | Screening | 9 | | | | (Colonoscopy) | | | | + + + + + | Vaccine: Zoster (1 | | | | | of 2) | 9 | | | + + + + + | Vaccine: Influenza | | | | | (Season Ended) | 0 | | | + + + + + Results Not on filefrom Last 3 Months Insurance + +--------+ +--------+ +---------+------+ | Payer | Benefi | Subscriber | Effect | Phone | Address | Type | | | t Plan | ID | araseli | | | | | | / | | Dates | | | | | | Group | | | | | | + +--------+ +--------+ +---------+------+ | [facility] | PHP | [id number] | 12/18/19 | [phone] | | PPO | | PLAN | PERSON | | 19-Pre | 5 | | | | | AL | | sent | | | | | | OPEN | | | | | | | | OPTION | | | | | | + +--------+ +--------+ +---------+------+ + +--------+ +--------+ + + | Guarantor Name | Accoun | Relation to | Date | Phone | Billing Address | | | t Type | Patient | of | | | | | | | | | | + +--------+ +--------+ + + | Yamila Yeager | Person | Self | [birth year] | [address] | | | al/Fam | | 1970 | [phone] | [place] [address] | | | danny | | | 6 (Home) | | | | | | | [phone] | | | | | | | 9 (Work) | | + +--------+ +--------+ + + Advance Directives + + + + + | Type | Date Recorded | Patient | Explanation | | | | 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
--- OUTSIDE RECORDS SUMMARY | ~2020-03-25 | XMS | Encounter Summary ---
Demographics + + + | Address | [address] | | | [place] [address] | + + + | Home Phone | | + + + | Preferred Language | Unknown | + + + | Marital Status | Single | + + + | Bahai Affiliation | 1013 | + + + | Race | Unknown | + + + | Ethnic Group | Unknown | + + + Author + + + | Author | [facility] | | | and [place] | + + + | Organization | [facility] | | | and [place] | [...] Team Providers + +------+ + | Care User Interface Artist Name | Role | Phone | + [...] | [place], [place] | [place] [address] | | | | | [address] | [phone] | | | | | [phone] | | | +--------+ + + + [...]
--- OUTSIDE RECORDS SUMMARY | ~2020-03-25 | XMS | Encounter Summary ---
Demographics + + + | Address | [address] | | | [place] [address] | + + + | Home Phone | | + + + | Preferred Language | Unknown | + + + | Marital Status | Single | + + + | Adventism Affiliation | 1013 | + + + | Race | Unknown | + + + | Ethnic Group | Unknown | + + + Author + + + | Author | [facility] | | | and [place] | + + + | Organization | [facility] | | | and [place] [...] Team Providers + +------+ + | Care Taper/Finisher Name | Role | Phone | + +------+ + | Noe Regan DO | PCP | | + +------+ + Reason for Visit + + + | Reason | Comments | + + + | Follow-up | 3 month vocal cord | + + + Evaluate & Treat [...] y | hoarseness/ | Noe E, | E, MD [address] | | | | | pcp | DO [address] | | | | | [place]/ pt/ | [address] | [address] | | | | | [place] | [place], [place] | [place], | | | | | Procedures | [id number] | [place] [address] | | | | | NEW PATIENT | Phone: | Phone: | | | | | | [phone] | [phone] | | | | | | Fax: | Fax: | | | | | | [phone] | [phone] | +--------+--------+ + + + + Encounter Details +--------+---------+ + + + | Date | Type | Department | Care Team | Description | +--------+---------+ + + + | 12/12/ | Office | [facility] | Charles Lino MD | Conversion disorder | | 2013 | Visit | OTOLARYNGOLOGY [address] | [address] | (Primary Dx) | | | | [address] | [address] [place], | | | | | [place], [place] | [place] [address] | | | | | [address] | [phone] | | | | | [phone] | | | +--------+---------+ + + + [...] + + + + | Pulse | 65 | 10/28/2014 9:58 AM | | | | | PST | | + + + + + [...] Weight | 103.4 kg (228 lb) | 10/28/2014 9:58 AM | | | | | PST | | + + + + + | Height | 170.2 cm (5' 7") | 10/28/2014 9:58 AM | | | | | PST | | + + + + + | Body Mass Index | 35.71 | 10/28/2014 9:58 AM | | | | | PST | | + + + + + documented in this encounter Progress Notes Charles Lino MD - 10/28/2014 12:05 PM PSTSee dictation # [id number] signed by Charles Lino MD at 10/28/2014 12:10 PM Charles Nath MD - 10/28/2014 12:00 AM PST ENT AND AUDIOLOGY [address] [address] FAX: [phone] OFFICE VISIT HISTORY: The patient had a nodule removed from her vocal cord back about 3 months ago. Her voice was doing very well until about 3 weeks ago when she started to have some raspiness, but more soreness and discomfort. 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 No o ther complaints. She is swallowing normally. EXAMINATION GENERAL: Shows an alert 43-year-old female patient. She is communicating well, but her voic e quality had a slight raspiness, but very minimal. HEENT: Skin of the face, nose and ears appeared healthy. Parotid and submandibular gland ar eas were smooth. Facial movement symmetrical. Ear canals are open, they are clean. Drums we re clear. Floor of the mouth, buccal mucosa, hard palate, teeth, lips and gums are healthy. No mass seen in the oropharynx. Posterior pharyngeal wall is smooth. Tongue and soft palat e are smooth and move symmetrically. Nasal passages: No obstruction. No mass or lesions see n. Right side of the nose was then sprayed well with some Mo-Synephrine and topical Xyloca ine. NECK: Smooth. There are no masses or lymphadenopathy. Thyroid area was smooth and trac hea was midline. Special procedure was carried out. The fiberoptic scope was used. It was passed through the right nasal passage. No mass or lesion in this passage or in the nasopharynx. Rosenmueller 's fossae are open and clear. Eustachian tube openings appeared healthy. Posterior and late ral pharyngeal jones were smooth. Base of the tongue, vallecula, and epiglottis, there is n o mass or lesion or thrush. Her vocal cords are very smooth. There is no nodule, no redness , no evidence of laryngopharyngeal reflux. Piriform sinuses were smooth. The patient has a very normal-appearing hypopharyngeal laryngeal examination. The scope was then removed. IMPRESSION: PROBABLE CONVERSION DISORDER. PLAN: The patient is placed on Xanax 0.25 mg, to take half a tablet in the morning, half in the mid day and a full one at night for the next week, to see if this lets up the irritati on in the vocal area. She will be re-seen again in 1 month's time to see if this is progres sing normally. Charles Lino MD / [facility] JOB #: [id number] signed by Charles Lino MD at 2014 8:25 AM PSTdocumente d in this encounter Plan of Treatment Not on filedocumented as of this encounter Visit Diagnoses + + | Diagnosis | + + | Conversion disorder - Primary | + + documented in this encounter
--- OUTSIDE RECORDS SUMMARY | ~2020-03-25 | XMS | Encounter Summary ---
Demographics + + + | Address | [address] | | | [place] [address] | + + + | Home Phone | | + + + | Preferred Language | Unknown | + + + | Marital Status | Single | + + + | Yazidism Affiliation | [id number] | + + + | Race | Unknown | + + + | Ethnic Group | Unknown | + + + Author + + + | Author | [facility] | | | and [place] | + + + | Organization | [facility] | | | and [place] | [...] Team Providers + +------+ + | Care Supervising Librarian Name | Role | Phone | + +------+ + | Kelly Alfonso | PCP | | | PA | | | + +------+ + Reason for Visit + + + | Reason | Comments | + + + | New Patient | Back Pain | + + + Evaluate & Treat (Routine) +--------+--------+ + + + + | Status | Reason | Specialty | Diagnoses / | Referred By | Referred To | | | | | Procedures | Contact | Contact | +--------+--------+ + + + + | Closed | | Physical | Diagnoses | [place], | [place], | | | | Medicine and | Lumbago | Kelly | Marcelo Willett MD | | | | Rehabilitatio | with | GUADALUPE Benton | [address] | | | | n | sciatica, | [address] [place] | | | | | left side | [address] | [place], [place] | | | | | | [place], | [address] Phone: | | | | | | [place] | [phone] | | | | | | [address] | Fax: | | | | | | Phone: | [phone] | | | | | | [phone] | | | | | | | Fax: | | | | | | | [phone] | | +--------+--------+ + + + + Encounter Details +--------+---------+ + + + | Date | Type | Department | Care Team | Description | +--------+---------+ + + + | 03/15/ | Office | [facility] [place] | Eugenio Herrera, | Sacroiliitis (HCC) | | 2019 | Visit | PHYSIATRY [address] | PA-C [address] | | | | | [address] [place] | | | | | [place], [place] | [place] [address] | | | | | [address] | [phone] | | | | | [phone] | | | +--------+---------+ + + + [...] + + + | Blood Pressure | 156/102 | 03/15/2019 9:10 AM | | | | | PDT | | + + + + + | Pulse | 85 | 03/15/2019 9:10 AM | | | [...] + + + documented in this encounter Patient Instructions Patient Instructions Eugenio Herrera PA-C - 03/15/2019 9:20 AM PDTLeft SI injection ordered . We will contact Fatmata or Jeremiah at coumadin clinic prior to injection. Please remember to complete pain log form after having injection. This is an insurance requ irement and allows faster approval of any future injections. Follow-up at the hospital thirty minutes before your scheduled procedure to allow for time to check in. You may eat and drink as usual on the day of the procedure. If you are scheduled for an epidural injection do not take any blood thinning medications f or at least 5-7 days prior to your procedure unless you have been instructed by another phys ician not to discontinue blood thinning medications. If you are having a procedure other than an epidural injection (i.e. facet injection, media l branch block, SI joint injection or other joint injection) it is not absolutely necessary to discontinue blood thinning medications but doing so will decrease the risk of bruising or bleeding. If you have had a prior stroke, DVT or PE or if you are taking blood thinning medication be cause you have atrial fibrillation, a prosthetic cardiac valve replacement or heart stenting do not stop taking your blood thinning medications unless you have permission from your car diologist or primary care provider. All other medications should be taken as usual on the day of the procedure. Common blood thinning medications include: Aspirin (a baby aspirin is o.k.) Ibuprofen (Advil or Motrin) Naproxen (Aleve) Nabumetone (Relafen) Clopidogrel (Plavix) Dipyridamole/ASA (Aggrenox) Warfarin (Coumadin) Dabigatran (Pradaxa) Rivaroxaban (Xarelto) There are many others. If you have questions about your medications and whether or not you should stop any medications please contact our office. If you are having an epidural injection or if you take any medication for relaxation/sedati on on the day of the procedure you must provide a commercial front load driver to take you home. For all procedur es it is recommended that someone else drive you home. Sacroiliitis The sacrum is the triangle-shaped bone at the base of the spine. It is linked to the other pelvis bones by the sacroiliac joints, also called SI joints. Sacroiliitis is when one or nando th SI joints are hurt or inflamed. It can make small movements of the lower back and pelvis very painful. This condition has been linked to other diseases. They includeankylosing spondylitis,rh eumatoid arthritis, psoriasis, and Crohn s disease or colitis. Symptoms may include pain o r stiffness in the hips, lower back, thighs, or buttocks. Pain occurs most often in the morn ing or after sitting for long periods of time. The pain may get worse when you walk. The swi nging motion of the hips strains the SI joints. Sacroiliitis is caused by many factors such as: Heavy lifting, especially if not done the right way Severe injury, such as a fall or car accident Osteoarthritis Infection of the joint This condition is hard to diagnose. It may be confused with other causes of low back pain. To confirm the diagnosis, you may be given a shot of numbing medicine in the SI joint. Treat ment includes rest, physical therapy, and anti-inflammatory medicines. If another health pro blem is the cause, then that must also be treated. More testing may be needed if your sympto ms don t get better. Home care If your healthcare provider has prescribed medicines, take them as directed. You may itsdnzy-eib-bxssghw pain medicine to control pain, unless another medicine was prescribed. If prednisone was prescribed, don t use NSAIDs, ornonsteroidal anti-inflamm atory drugs, such asibuprofenor naproxen. Talk with your provider before using this medi cine if you have chronic liver or kidney disease or ever had a stomach ulcer or gastrointest inal bleeding. If you were referred to physical therapy, make an appointment. Be sure to do any prescri bed exercises. Don t smoke. Smoking reduces blood flow to the inflamed area. This makes it harder to treat. Talk with your doctor if you need help quitting. Follow-up care Follow up with your healthcare provider, or as advised. If you had an X-ray or anMRI,you will be notified of any new findings that may affect y our care. When to seek medical advice Contact your healthcare provider right away if any of these occur: Increasing low back pain Inflammation of the eyes Skin rash or redness Weakness or numbness in one or both legs Loss of bowel or bladder control Numbness in the groin area Date Last Reviewed: 03/17/[id number] [employer]. [address] [place] [address]. All righ ts reserved. This information is not intended as a substitute for professional medical care. Always follow your healthcare professional's instructions. documented in this encounter Progress Notes Eugenio Herrera PA-C - 03/15/2019 9:20 AM PDTFormatting of this note might be different fro m the original. Eugenio Herrera PA-C [address] [facility] [address] [place] [address] FAX: CHIEF COMPLAINT: Chief Complaint Patient presents with New Patient Back Pain HISTORY OF PRESENT ILLNESS: The patient is a 48 y.o. female with the complaint of left low back, buttocks, and left lower extremity symptoms that began approximately 6 months ago. T he patient describes symptom onset following no inciting event. The symptoms have been stab le. She reports that 2 years ago she had a left foot surgery that was unsuccessful. She re ports that since surgery she has had to wear a large left ankle brace and has walked with a abnormal gait. Prior to the surgery she did have posterior left buttock pain however since the surgery it has worsened considerably. She rates the pain as moderate. The symptoms are daily. She describes the pain as aching, sharp, shooting and stabbing. The patient describes leg symptoms that occur on left side. The leg symptoms account for 1 00% of her symptoms. The leg symptoms are constant and the symptoms travels from the left l ow back/buttocks and down posterior thigh. The patient does not report any change in bowel or bladder function recently. Her symptoms improve with changing position. Her symptoms worsen with sitting, walking, running, bending and twisting. She has tried Narcotic Pain Medications, PT, Chiropactic, TENS, Muscle relaxers and Braces. PAST MEDICAL HISTORY: Past Medical History: Diagnosis Date Acid reflux disease Alcohol abuse Anemia Benign essential hypertension Chronic pain Class 2 obesity in adult DDD (degenerative disc disease), lumbar Disc degeneration, lumbar Drug toxicity opioids, self-inflicted overdose - unintentional DVT (deep venous thrombosis) ([facility]) post surgery Encounter for current long-term use of anticoagulants Facet arthropathy Generalized abdominal mass GERD (gastroesophageal reflux disease) History of blood clots History of Coumadin therapy History of DVT (deep vein thrombosis) Hypertension Iron deficiency anemia Localized, primary osteoarthritis of ankle or foot 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 Long-term current use of high risk medication other than anticoagulant Low back pain Lumbago with sciatica, left side Lumbar radiculopathy L4 Menorrhagia Opioid use uncomplicated Osteoarthritis Other chronic pain Ovarian neoplasm Plantar fasciitis, left Proteinuria Pulmonary embolism (HCC) Pulmonary embolism on left (HCC) post surgery Spondylolisthesis of lumbar region Status post left foot surgery Stress incontinence of urine Systemic hypertension Tobacco abuse 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 Stuart APPENDECTOMY 1989 BONE GRAFT Left 08/2016 Dr. Cano with Foot surgery FOOT SURGERY Left 08/2016 with bone graft FOOT SURGERY Left 01/2017 Broken screws KNEE ARTHROSCOPY Right 2010 KNEE ARTHROSCOPY LARYNGOSCOPY/BRONCHOSCOPY/ESOPHAGOSCOPY 07/12/2014 DIRECT MICROLARYNGOSCOPY W/ EXCISION OF LEFT VOCAL CORD GROWTH; Laterality: N/A; Surgeon : Charles Lino MD; Location: [facility] OR MYOMECTOMY 2014 had post op high temp. hospitalized x5 days ROTATOR CUFF REPAIR Right TOTAL HYSTERECTOMY 06/03/2018 Robotic modified radical hysterectomy, unilateral salpingo oophorectomy, laparoscopic lysi s of adhesions, right ureteroplasty, IUD removal SURGEON: Esau Lei MD TUBAL LIGATION 1988 TUMOR REMOVAL removed from ovary VOCAL CORD POLYP REMOVAL 2014 CURRENT MEDICATIONS: Current Outpatient Medications Medication Sig Dispense Refill amLODIPine (NORVASC) 10 MG tablet Take 10 mg by mouth Daily. cetirizine (ZYRTEC) 10 mg tablet Take 10 mg by mouth Daily. cyclobenzaprine (FLEXERIL) 10 mg tablet Take 10 mg by mouth 3 times daily as needed for Muscle spasms. gabapentin (NEURONTIN) 400 mg capsule taje 1 capsule by mouth twice daily losartan-hydrochlorothiazide (HYZAAR) 100-25 MG per tablet Take 1 tablet by mouth Daily . omeprazole (PRILOSEC) 20 mg capsule Take 20 mg by mouth Daily. spironolactone (ALDACTONE) 100 MG tablet Take 100 mg by mouth Daily. warfarin (COUMADIN) 5 mg tablet Take 5 mg by mouth Daily. warfarin (COUMADIN) 7.5 mg tablet Take 7.5 mg by mouth daily. No current facility-administered medications for this visit. ALLERGIES: Allergies Allergen Reactions Adhesive & Tape Other (See Comments) Blisters Oxycodone-Acetaminophen Diarrhea and Nausea And Vomiting SOCIAL HISTORY: The patient reports that she has been smoking cigarettes. She has smoked for the past 15. 00 years. She has never used smokeless tobacco. She reports that she drinks about 25.2 oz of alcohol per week. She reports that she has current or past drug history. Drugs: Marijuana a nd Methamphetamines. FAMILY HISTORY: Family History Problem Relation Age of Onset Breast cancer Mother Hypertension Mother Other cancer Mother Leukemia Other cancer Father Skin Diabetes Maternal Grandmother Cancer Other No known problems Maternal Grandfather No known problems Paternal Grandmother No known problems Paternal Grandfather REVIEW OF SYSTEMS: GENERALLY: No fever, no night sweats, no anemia, no fatigue, no recent profound weight ch anges. EYES: + eye problems, no use of corrective lenses, no eye injury, no double vision, no bli ndness. EARS, NOSE, AND THROAT: No changes in taste or smell, no hearing difficulty, no ringing in the ears, no ear drainage, no dizziness, no voice changes, no difficulty swallowing, no sig nificant snoring, no sleep apnea, no sinus problems, no major dental work. NEUROLOGICALLY: Please see the review of systems discussed above in the history of present illness. In addition, the patient has numbness/pain of legs, muscle aching. PSYCHIATRIC: No depression, no sleep disorders, no anxiety, no bipolar disorder, no psycho tic episodes. CARDIOVASCULAR: No heart attacks, no heart murmur, no heart fluttering, no chest pain, no ankle swelling. LUNG DISEASE: No shortness of breath, no cough, no tuberculosis, no bloody cough, no asth ma, no emphysema/COPD. GASTROINTESTINAL: No bowel disease, no nausea or vomiting, no rectal bleeding, no constipa tion, no stool incontinence, no liver disease, no gallbladder disease, no abdominal pain, no ulcers. KIDNEY DISEASE: No urinary frequency, no painful or difficult urination, no incontinence. ENDOCRINE: No diabetes, no thyroid disease, no osteopenia or osteoporosis, no breast drain age. SKIN: No breast lumps, no skin changes, no rashes, no itches. HEMATOLOGIC/LYMPHATIC: No enlarged lymph nodes, no easy or unusual bleeding, no personal h istory of cancer. RHEUMATOLOGIC: No joint arthritis, no rheumatoid arthritis. PHYSICAL EXAMINATION: Blood pressure (!) 156/102, pulse 85, height 1.702 m (5' 7"), weight 103.4 kg (228 lb). Bod y mass index is 35.71 kg/m. GENERAL: The patient is well developed and well nourished. She does not appear uncomfortab le when seated. HEENT: Normocephalic and atraumatic. Normal sclerae without icterus. NECK (ANTERIOR): There is no apparent cervical lymphadenopathy or thyromegaly. PULMONARY: The patient is in no acute respiratory distress with unlabored respirations. CARDIOVASCULAR: Regular rate and rhythm. There no lower extremity edema. ABDOMEN: Non-distended. SKIN: Limited skin exam shows no significant rashes or lesions. NEUROLOGIC: The patient is awake, alert, and oriented. She follows simple and complex commands. Her speech is fluent. She comprehends speech well. She has no apparent deficits with short or manager intermediate memory. The cranial nerves appear grossly intact. REFLEX: RIGHT LEFT PATELLAR 0 0 ACHILLES 0 0 MUSCULOSKELETAL : Straight leg raise and slump-sit are negative. Billy's maneuver and im pingement testing were negative for any groin pain, positive for SI joint pain. There was n o tenderness to palpation over the greater trochanters. The patient localized the majority of the pain to the LEFT SI joint region. Lumbar facet loading was negative. Strength testi ng showed 5/5 strength throughout the lower extremities. The patient was able to heel and t oe walk without difficulty. There was no redness, effusion, warmth or joint line tenderness in the knees or ankles. SI joint special tests: + Livingston's test, + Thigh thrust test, + Gaenslan's test RADIOGRAPHIC REVIEW: The patient's imaging was reviewed in detail with the patient today during the visit. Lumba r MRI from 2018 shows severe right-sided neural foraminal stenosis at L4-5 and moderate left neural foraminal stenosis at L4-5. There are bilateral facet effusions at L5-S1 ASSESSMENT: Encounter Diagnosis Name Primary? Sacroiliitis (HCC) PLAN: 1) Today we discussed the patient's differential diagnosis with the likely primary issue be ing SACROILIITIS. Patient's description of symptoms, physical exam, and imaging suggest this diagnosis at this time. 2) I counseled patient on treatment options which included conservative self management usi ng OTC NSAIDs/Ice and heat packs, physical therapy, prescription medications, epidural stero id injection, neuromodulation devices, as well as possible surgical intervention. 3) Imaging: As descibed above in radiology review. 4) The patient has had significant conservative care including medications (NSAIDS and narc otics), PT (multiple sessions over the years) and childcare attendant. Unfortunately Yamila willett continues to have significant discomfort. It appears to me that the pain is primarily com ing from SI JOINTS. I did feel that Yamila Yeager would be a good candidate for interventional procedures and I offered a LEFT SI INJECTION to be done. POSITIVE EXAM FINDINGS: + Livingston's test, + Thigh thrust test, + Gaenslan's test, tendern ess to palpation . (3 pain reproduction positive tests & tenderness to palpation) 5) Patient will follow up with me 3 weeks post injection to discuss any imaging and/or prog ress with today's treatment plan. 6) If current treatment plan is insufficient for symptom relief we could try SI MBB/RFA ref erral to Dr Sanchez as the next therapy option. I spent 30 minutes in visit with Yamila Yeager today with the majority of time spent counselli ng the patient on her diagnosis, options for her care, and coordinating her care. CC:GUADALUPE Marie documented in this encounter Plan of Treatment Not on filedocumented as of this encounter Results [place] Sacroiliac Injection Left (04/22/2019 12:11 PM PDT) + + | Specimen | + + | | + + + + + | Narrative | Performed At | + + + | | [facility] | | 04/22/2019Sacroiliac Joint InjectionClinical History: Sacroiliitis | | | ICD-10 M46.1 Yamila Yeager presents to the fluoroscopy suite for a | | | fluoroscopically guided left sacroiliac joint steroid injection as | | | part of conservative management for chronic pain with sacroiliitis. | | | After informed consent was obtained the patient laid in the prone | | | position on the fluoroscopy table. The left sacroiliac joint was | | | identified under fluoroscopic guidance. The area was prepped and | | | draped in sterile fashion. A 25 gauge 1-1/2 inch needle was inserted | | | into this region and approximately 3 mL of buffered 1% lidocaine was | | | infused. Then a 22 gauge spinal needle was inserted into the inferior | | | joint space under fluoroscopic guidance. Confirmation into the | | | sacroiliac joint was obtained with infusion of approximately 1 mL of | | | Omnipaque contrast which showed flow within the joint space. Then a | | | combination of 1 mL 1% lidocaine and 1 mL of 40 mg per milliliter | | | triamcinolone was infused. The patient tolerated the procedure well | | | without complications. Pre- and post procedure blood pressures were | | | stable. The patient was given verbal as well as written followup | | | instructions. Prior to the start of the procedure the following were | | | performed and verified including correct patient identity, correct | | | site/side marked and visible, agreement of the procedure to be done, | | | correct patient positioning and an accurate procedure consent form. | | | Any safety precautions based on clinical history and/or medications | | | have been addressed. I personally performed the procedure above. | | | Estimated blood loss: MinimalComplications: NoneFindings: As | | | expectedAnesthesia: Local 1% Lidocaine | | | | | |I personally performed the procedure above. | | | | | |Estimated blood loss: Minimal | | |Complications: None | | |Findings: As expected | | |Anesthesia: Local 1% Lidocaine | | | | | + + + + +---------+ + + | Performing | Address | City/State/Zipcode | Phone Number | | Organization | | | | + +---------+ + + | [facility] | | | | + +---------+ + + documented in this encounter Visit Diagnoses + + | Diagnosis | + + | Sacroiliitis (HCC) Sacroiliitis, not elsewhere classified | + + documented in this encounter
--- OUTSIDE RECORDS SUMMARY | ~2020-03-25 | XMS | Encounter Summary ---
Demographics + + + | Address | [address] | | | [place] [address] | + + + | Home Phone | | + + + | Preferred Language | Unknown | + + + | Marital Status | Single | + + + | Moravian Affiliation | 1013 | + + + | Race | Unknown | + + + | Ethnic Group | Unknown | + + + Author + + + | Author | [facility] | | | and [place]esto[place] | + + + | Organization | [facility] | | | and Ernestoana [...] Team Providers + +------+ + | Care Flight Crew Ordnanceman Name | Role | Phone | + +------+ + | Noe Regan DO | PCP | | + +------+ + Encounter Details +--------+ + + + + | Date | Type | Department | Care Team | Description | +--------+ + + + + | 10/28/ | Hospital | [facility] | Conversion | Spondylolisthesis, | | 2018 | Encounter | [facility] | Transaction, | unspecified spinal | | | | [address] | Provider Unknown | region | | | | [address] [place], [place] | [phone] | | | | | [address] | | | | | | [phone] | | | +--------+ + + + [...] + + + | XR LUMBAR SPINE | Routin | 10/28/2018 | | Results for this | | COMPLETE INCLUDING | e | 12:44 PM | | procedure are in the | | BENDING 6 + VW | | PST | | results section. | + +--------+ + + + documented in this encounter Results XR Lumbar Spine Complete With Bending 6+ (10/28/2018 12:44 PM PST) + + | Specimen | + + | | + + + + + | Impressions | Performed At | + + + | Anterolisthesis of L4 on L5 measuring 1.1 cm in extension and 1.5 | | | cm in flexion No acute fractures. There is facet joint | | | arthropathy of the lower lumbar spine. Overlying bowel gas pattern | | | is nonspecific and nonobstructive. | | + + + + + + | Narrative | Performed At | + + + | YAMILA YEAGER 1970 XR LUMBAR SPINE 6 OR MORE VIEWS 10/28/2018 | | | 12:44 PM INDICATION: Spondylolisthesis. COMPARISON: July | | | 2017 TECHNIQUE: Lumbar spine series, 7 views. | | + + + + + | Procedure Note | + + | Ángel Dias - 06/30/2019 1:54 PM PDT YAMILA YEAGER | | 1970 | | XR LUMBAR SPINE 6 OR MORE VIEWS | | 10/28/2018 12:44 PM | | | | INDICATION: Spondylolisthesis. | | | | COMPARISON: August 06, 2018 | | | | TECHNIQUE: Lumbar spine series, 7 views. | | | | IMPRESSION: | | | | Anterolisthesis of L4 on L5 measuring 1.1 cm in extension and 1.5 cm in flexion | | | | No acute fractures. There is facet joint arthropathy of the lower lumbar spine. | | | | Overlying bowel gas pattern is nonspecific and nonobstructive. | | | | | + + documented in this encounter Visit Diagnoses + + | Diagnosis | + + | Spondylolisthesis, unspecified spinal region | + + documented in this encounter"
--- OUTSIDE RECORDS SUMMARY | ~2020-03-25 | XMS | Encounter Summary ---
Demographics + + + | Address | [address] | | | [place] [address] | + + + | Home Phone [...] + + | Author | [facility] | | | and [place]esto[place] | + + + | Organization | [facility] | | | and [...] Team Providers + +------+ + | Care Residential Solar Consultant Name | Role | Phone | + [...] | +--------+ + + + + | 02/13/ | Telephone | [facility] [place] | Charles Lino MD | Medication Refill | | 2014 | | OTOLARYNGOLOGY [address] | [address] | | | | | [address] | [address] [place], | | | | | [place], [place] | [place] [address] | | | | | [address] | [phone] | | | | | [phone] | | | +--------+ + + + [...]
--- OUTSIDE RECORDS SUMMARY | ~2020-03-25 | XMS | Encounter Summary ---
Demographics + + + | Address | [address] | | | [place] [address] | + + + | Home Phone | | + + + | Preferred Language | Unknown | + + + | Marital Status | Single | + + + | Episcopal Affiliation | 1013 | + + + | Race | Unknown | + + + | Ethnic Group | Unknown | + + + Author + + + | Author | [facility] | | | and [place]esto[place] | + + + | Organization | [facility] | | | and [...] Team Providers + +------+ + | Care Side Framer Name | Role | Phone | + [...] [place], | | | | | [place], [place] | [place] [address] | | | | | [address] | [phone] | | | | | [phone] | | | +--------+--------+ + + + [...]
--- OUTSIDE RECORDS SUMMARY | ~2020-03-25 | XMS | Encounter Summary ---
Demographics + + + | Address | [address] | | | [place] [address] | + + + | Home Phone | | + + + | Preferred Language | Unknown | + + + | Marital Status | Single | + + + | Zoroastrian Affiliation | 1013 | + + + | Race | Unknown | + + + | Ethnic Group | Unknown | + + + Author + + + | Author | [facility] | | | and [place]esto[place] | + + + | Organization | [facility] | | | and [...] Team Providers + +------+ + | Care Working Second Hand Name | Role | Phone | + +------+ + | Kelly Alfonso | PCP | | | PA | | | + +------+ + Encounter Details +--------+ + + + + | Date | Type | Department | Care Team | Description | +--------+ + + + + | 05/26/ | Orders Only | [facility] | Conversion | | | 2018 | | NEPRHOLOGY [place] | Transaction, | | | | | [address] | Provider Unknown | | | | | [address] [place] | [phone] | | | | | [address] | | | | | | [phone] | | | +--------+ + + + [...] +--------+ + + + | EXTERNAL LAB: [facility] | Routin | 05/26/2018 | | Results for this | | | e | 12:00 AM | | procedure are in the | | | | PDT | | results section. | + +--------+ + + + documented in this encounter Results External Lab: [facility] (05/26/2018 12:00 AM PDT) + + + + + + | Component | Value | Ref Range | Performed | Pathologist | | | | | At | Signature | + + + + + + | WBC | 6.7 | 4.5 - 11.0 10 | EXTERNAL | | | | | | LAB | | + + + + + + | Red Blood | 4.49 | 3.8 - 5.1 10 | EXTERNAL | | | Cells | | | LAB | | | Counted | | | | | + + + + + + | Hemoglobin | 12.7 | 12.0 - 16.0 | EXTERNAL | | | | | g/dL | LAB | | + + + + + + | Hematocrit, | 38.9 | 35 - 45 % | EXTERNAL | | | POC | | | LAB | | + + + + + + | MCV | 86.7 | 81 - 99 fL | EXTERNAL | | | | | | LAB | | + + + + + + | MCH | 28 | 27 - 33 pg | EXTERNAL | | | | | | LAB | | + + + + + + | MCHC | 33 | 30 - 36 g/dL | EXTERNAL | | | | | | LAB | | + + + + + + | Platelet | 343 | 140 - 440 K/ L | EXTERNAL | | | Count | | | LAB | | | Plasma | | | | | + + + + + + | RDW-CV | 16.2 (A) | 10.5 - 15.0 % | [...] + + + | % Segmented | 66.6 | 39 - 80 % | EXTERNAL | | | | | | LAB | | | Neutrophils | | | | | + + + + + + | % | 18.9 (A) | 24 - 44 % | EXTERNAL | | | Lymphocytes | | | LAB | | + + + + + + | % Monocytes | 9.1 | 0 - 12 % | EXTERNAL | | | | | | LAB | | + + + + + + | % | 4.7 | 0 - 6 % | EXTERNAL | | | Eosinophils | | | LAB | | + + + + + + | % Basophils | 0.7 | 0 - 2 % | EXTERNAL [...]
--- OUTSIDE RECORDS SUMMARY | ~2020-03-25 | XMS | Encounter Summary ---
Demographics + + + | Address | [address] | | | [place] [address] | + + + | Home Phone [...] Organization | [facility] | | | and Ernestoana [...] + +------+ + | Care Math And Sciences Department Chair Name | Role | Phone | + [...] | MED CTR EXTERNAL | [address] | | | | | [address] | [address] | | | | | [address] | [place] [address] | | | | | [place] [address] | | | | | | [phone] | | | +--------+ + + + [...]
--- OUTSIDE RECORDS SUMMARY | ~2020-03-25 | XMS | Encounter Summary ---
Demographics + + + | Address | [address] | | | [place] [address] | + + + | Home Phone [...] + + + | Author | [facility] | | | and Ernesto[place] | + + + | Organization | [facility] | | | and [...] Team Providers + +------+ + | Care Extractor Operator Name | Role | Phone | [...] [place] | | | | | | [place], | [address] Phone: | | | | | | [place] | [phone] | | | | | | [address] | Fax: | | | | | | Phone: | [phone] | | | | | | [phone] | | | | | | | Fax: | | | | | | | [phone] | | +--------+--------+ + + + + [...] | [place], [place] | [place] [address] | | | | | [address] | [phone] | | | | | [phone] | | | +--------+---------+ + + + [...] of the procedure you must provide a driver license examiner to take you home. For all procedur [...] medicines, take them as directed. You may sdtopeo-csw-lsjttea pain medicine to control pain, unless another [...] in the groin area Date Last Reviewed: 03/17/201819998663-7924 [employer]. [address] [place] [address]. All righ ts reserved. This information is not intended as a substitute for professional medical care. Always follow your healthcare professional's instructions. documented in this encounter Progress Notes Eugenio Herrera PA-C - 03/15/2019 9:20 AM PDTFormatting of this note might be different fro m the original. 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 The cranial nerves appear grossly intact. [...] or ankles. SI joint special tests: + Lutts's test, + Thigh thrust test, + Gaenslan's [...] PT (multiple sessions over the years) and live in caregiver. Unfortunately Yamila willett continues to have significant discomfort. It appears to me that the pain is primarily com ing from SI JOINTS. I did feel that Yamila Yeager would be a good candidate for interventional procedures and I offered a LEFT SI INJECTION to be done. POSITIVE EXAM FINDINGS: + Lutts's test, + Thigh thrust test, + Gaenslan's [...]
--- OUTSIDE RECORDS SUMMARY | ~2020-03-25 | XMS | Encounter Summary ---
Demographics + + + | Address | [address] | | | [place] [address] | + + + | Home Phone | | + + + | Preferred Language | Unknown | + + + | Marital Status | Single | + + + | Roman Catholic Affiliation | 1013 | + + + | Race | Unknown | + + + | Ethnic Group | Unknown | + + + Author + + + | Author | [facility] | | | and Ernesto[place] | + + + | Organization | [facility] | | | and Ernestoana [...] Team Providers + +------+ + | Care Clinical Trainer Name | Role | Phone | + [...] | | | | | | | [place] | | | | | | | [...] + + | 07/12/ | Hospital | [facility] | Charles Lino MD | Leukoplakia of vocal | | 2013 | Encounter | MED CTR OR INTRA OP | [address] | cords (Primary Dx) | | | | [address] | [address] [place], | | | | | [place], [place] | [place] [address] | | | | | [address] | [phone] | | | | | [phone] | | | +--------+ + + + [...]
--- OUTSIDE RECORDS SUMMARY | ~2020-03-25 | XMS | Encounter Summary ---
Demographics + + + | Address | [address] | | | [place] [address] | + + + | Home Phone | | + + + | Preferred Language | Unknown | + + + | Marital Status | Single | + + + | Shinto Affiliation | 1013 | + + + | Race | Unknown | + + + | Ethnic Group | Unknown | + + + Author + + + | Author | [facility] | | | and [place]esto[place] | + + + | Organization | [facility] | | | and [...] Team Providers + +------+ + | Care Assistant Printer Floor Covering Name | Role | Phone | + +------+ + | Noe Regan DO | PCP | | + +------+ + Reason for Visit + + + | Reason | Comments | + + + | Referral | | | (PreAuthorization) | | + + + Encounter Details +--------+ + + + + | Date | Type | Department | Care Team | Description | +--------+ + + + + | 01/05/ | Telephone | [facility] | Charles Lino MD | Referral | | 2015 | | OTOLARYNGOLOGY [address] | [address] | (PreAuthorization) | | | | [address] | [address] [place], | | | | | [place], [place] | [place] [address] | | | | | [address] | [phone] | | | | | [phone] | | | +--------+ + + + [...]
--- OUTSIDE RECORDS SUMMARY | ~2020-03-25 | XMS | Clinical Summary ---
Demographics + + + | Address | [address] | | | [place] [address] | + + + | Home Phone [...] | Organization | [facility] | | | and Ernestoana [...] Team Providers + +------+ + | Care Farm Machine Tender Name | Role | Phone | + [...] | | + +--------+ +--------+ +---------+------+ | [facility] | PHP | [phone] | 12/18/19 | [phone] | | PPO [...] Person | Self | [birth year] | [address] | | | al/Fam | | 1970 | [phone] | [place] [address] | | | danny | | | 6 (Home) | | | | | | | [phone] | | | | | | | 9 (Work) | | + +--------+ +--------+ + + Advance Directives + + + + + | Type | Date Recorded | Patient | Explanation | | | | Irrigation System Operator | | + + + + + | Power of | | | | | Enterprise Business Architect | | | | + + + [...]
--- OUTSIDE RECORDS SUMMARY | ~2020-03-25 | XMS | Encounter Summary ---
Demographics + + + | Address | [address] | | | [place] [address] | + + + | Home Phone | | + + + | Preferred Language | Unknown | + + + | Marital Status | Single | + + + | Confucianism Affiliation | 1013 | + + + | Race | Unknown | + + + | Ethnic Group | Unknown | + + + Author + + + | Author | [facility] | | | and [place]esto[place] | + + + | Organization | [facility] | | | and Ernestoana | [...] Team Providers + +------+ + | Care Couturiere Name | Role | Phone | + [...] | MED CTR EXTERNAL | MD [address] | | | | | IMAGING [address] | [address] | | | | | [address] [place] | [place] [address] | | | | | [place] [address] | | | | | | [phone] | | | +--------+ + + + [...]
--- OUTSIDE RECORDS SUMMARY | ~2020-03-25 | XMS | Encounter Summary ---
Demographics + + + | Address | [address] | | | [place] [address] | + + + | Home Phone | | + + + | Preferred Language | Unknown | + + + | Marital Status | Single | + + + | Scientology Affiliation | 1013 | + + + | Race | Unknown | + + + | Ethnic Group | Unknown | + + + Author + + + | Author | [facility] | | | and [place]esto[place] | + + + | Organization | [facility] and [facility] | | | and [...] Team Providers + +------+ + | Care Human Resources District Manager Name | Role | Phone | + +------+ + | Kelly Alfonso | PCP | | | PA | | | + +------+ + Reason for Visit Service/Procedure (Routine) +--------+--------+ + + + + | Status | Reason | Specialty | Diagnoses / | Referred By | Referred To | | | | | Procedures | Contact | Contact | +--------+--------+ + + + + | Closed | | Radiology | Diagnoses | | [facility] | | | | | | [place], | [address] | | | | | Sacroiliitis | Marcelo Willett MD | Hemal Recio, | | | | | (HCC) | [address] | [place] | | | | | Procedures | [place] | [address] | | | | | [place] INJECT SI | [place], [place] | Phone: | | | | | JOINT | [address] | [phone] | | | | | ARTHRGRPHY&/ | Phone: | Fax: | | | | | ANES/STEROID | [phone] | [phone] | | | | | W/IMAGE NC | Fax: | | | | | | | [phone] | | | | | | TRIAMCINOLON | | | | | | | E ACET INJ | | | | | | | NOS, 10 MG | | | | | | | Left | | | | | | | Sacroiliac | | | | | | | Warfarin | | | +--------+--------+ + + + + Encounter Details +--------+ + + + + | Date | Type | Department | Care Team | Description | +--------+ + + + + | 04/22/ | Hospital | [facility] | Eugenio Herrera, | Sacroiliitis (HCC) | | 2019 | Encounter | MED CTR XRAY [address] | PA-C [address] | | | | | [address] | [address] [place] | | | | | [place] [address] | [place] [address] | | | | | [phone] | [phone] | | | | | | | | | | | | [place], [facility] | | | | | | [place] | | +--------+ + + + + [...] this encounter Last Filed Vital Signs + +---------+ + + | Vital Sign | Reading | Time Taken | Comments | + +---------+ + + | Blood Pressure | 140/87 | 04/22/2019 12:29 PM | | | | | PDT | | + +---------+ + + | Pulse | 87 | 04/22/2019 12:29 PM | | | | | PDT | | + +---------+ + + | Temperature | - | - | | + +---------+ + + | Respiratory Rate | - | - | | + +---------+ + + | Oxygen Saturation | - | - | | + +---------+ + + | Inhaled Oxygen | - | - | | | Concentration | | | | + +---------+ + + | Weight | - | - | | + +---------+ + + | Height | - | - | | + +---------+ + + | Body Mass Index | - | - | | + +---------+ + + documented in this encounter Medications at Time of Discharge + + + +---------+ + + | Medication | Sig | Dispensed | Refills | Start | End Date | | | | | | Date | | + + + +---------+ + + | amLODIPine | Take 10 mg by mouth | | 0 | | | | (NORVASC) 10 MG | Daily. [...] daily as | | | | | | tablet | needed for Muscle | | | | | | | spasms. | | | | | + + + +---------+ + + | gabapentin | taje 1 capsule by | | 0 | | | | (NEURONTIN) 400 mg | mouth twice daily | | | | | | capsule | | | | | | + + + +---------+ + + | | Take 1 tablet by | | 0 | | | | losartan-hydrochloro | mouth Daily. | | | | | | thiazide (HYZAAR) | | | | | | | 100-25 MG per tablet | | | | | | + + + +---------+ + + | omeprazole | Take 20 mg by mouth | | 0 | | | | (PRILOSEC) 20 mg | Daily. | | | | | | capsule | | | | | | + [...] +---------+ + + | warfarin | Take 7.5 mg by mouth | | 0 | | | | (COUMADIN) 7.5 mg | daily. | | | | | | tablet [...] | + +--------+ + + + | [place] SACROILIAC | Routin | 04/22/2019 | Sacroiliitis (HCC) | Results for this | | INJECTION LEFT | e | 12:11 PM | | procedure are in the | | | | PDT | | results section. | + +--------+ + + + documented in this encounter Results [place] Sacroiliac Injection Left [...] | | | + +--------+ +-------+------+------+ | iohexol (OMNIPAQUE 300) 300 | Given | 04/22/20 | 3 mLs | | | | mg/mL injection 3 mL 3 mL, | | 19 12:19 | | | | | Intra-articular, ONCE, [facility] 04/22/19 | | PM PDT | | | | | at 1230, For 1 dose | | | | | | + +--------+ +-------+------+------+ +---+---+ | | | +---+---+ + +-------+ +-------+---+---+ | lidocaine (PF) 1% injection 2 | Given | 04/22/20 | 2 mLs | | | | mL 2 mL, Intra-articular, ONCE, | | 19 12:21 | | | | | [facility] 04/22/19 at 1230, For 1 dose | | PM PDT | | | | + +-------+ +-------+---+---+ +---+---+ | | | +---+---+ + +-------+ +-------+---+ + | lidocaine buffered 0.9% | Given | 04/22/20 | 3 mLs | | Other | | injection 3 mL 3 mL, | | 19 12:17 | | | (Comment | | Intradermal, ONCE, [facility] 04/22/19 at | | PM PDT | | | ) | | 1230, For 1 dose | | | | | | + +-------+ +-------+---+ + +---+---+ | | | +---+---+ + +-------+ +-------+---+---+ | triamcinolone acetonide | Given | 04/22/20 | 40 mg | | | | (KENALOG-40) 40 mg/mL injection | | 19 12:21 | | | | | 40 mg 40 mg, Intra-articular, | | PM PDT | | | | | ONCE, [facility] 04/22/19 at 1230, For 1 | | | | | | | dose, Shake well. Not for IV | | | | | | | use., | | | | | | + +-------+ +-------+---+---+ +---+---+ | | | +---+---+ documented in this encounter"
--- OUTSIDE RECORDS SUMMARY | ~2020-03-25 | XMS | Encounter Summary ---
Demographics + + + | Address | [address] | | | [place] [address] | + + + | Home Phone | | + + + | Preferred Language | Unknown | + + + | Marital Status | Single | + + + | Sikh Affiliation | 1013 | + + + | Race | Unknown | + + + | Ethnic Group | Unknown | + + + Author + + + | Author | [facility] | | | and Ernesto[place] | + + + | Organization | [facility] | | | and Ernestoana [...] Team Providers + +------+ + | Care Para Professional Name | Role | Phone | + [...] | +--------+ + + + + | 03/15/ | Telephone | [facility] [place] | Charles Lino MD | Medication Refill | | 2014 | | OTOLARYNGOLOGY [address] | [address] | | | | | [address] | [address] [place], | | | | | [place], [place] | [place] [address] | | | | | [address] | [phone] | | | | | [phone] | | | +--------+ + + + [...]
--- OUTSIDE RECORDS SUMMARY | ~2020-03-25 | XMS | Encounter Summary ---
Demographics + + + | Address | [address] | | | [place] [address] | + + + | Home Phone [...] | Organization | [facility] | | | and Ernestoana [...] Team Providers + +------+ + | Care Boom Tender Name | Role | Phone | [...] [place], | | | | | [place], [place] | [place] [address] | | | | | [address] | [phone] | | | | | [phone] | | | +--------+ + + + [...]
--- OUTSIDE RECORDS SUMMARY | ~2020-03-25 | XMS | Encounter Summary ---
Demographics + + + | Address | [address] | | | [place] [address] | + + + | Home Phone | | + + + | Preferred Language | Unknown | + + + | Marital Status | Single | + + + | Sabianist Affiliation | 1013 | + + + | Race | Unknown | + + + | Ethnic Group | Unknown | + + + Author + + + | Author | [facility] | | | and [place] | + + + | Organization | [facility] | | | and [place]esto[place] [...] Team Providers + +------+ + | Care Bottling Line Attendant Name | Role | Phone | [...] | MED CTR EXTERNAL | [address] | | | | | IMAGING [address] | [address] | | | | | [place] | [place] [address] | | | | | [place] [address] | | | | | | [phone] | | | +--------+ + + + [...] + +--------+ + + + | XR ANKLE LEFT 3 + VW | Routin | 08/16/2014 | | Results for this | | | e | 2:35 PM | | procedure are in the | | | | PDT | | results section. | + +--------+ + + + documented in this encounter Results XR Ankle Left 3 + Vw (08/16/2014 2:35 PM PDT) + + | Specimen | [...]
--- OUTSIDE RECORDS SUMMARY | ~2020-03-25 | XMS | Encounter Summary ---
Demographics + + + | Address | [address] | | | [place] [address] | + + + | Home Phone | | + + + | Preferred Language | Unknown | + + + | Marital Status | Single | + + + | Buddhism Affiliation | 1013 | + + + | Race | Unknown | + + + | Ethnic Group | Unknown | + + + Author + + + | Author | [facility] | | | and [place] | + + + | Organization | [facility] [...] Team Providers + +------+ + | Care Vocational School Teacher Name | Role | Phone | + +------+ + | Kelly Alfonso | PCP | | | PA | | | + +------+ + Encounter Details +--------+ + + + + | Date | Type | Department | Care Team | Description | +--------+ + + + + | 10/27/ | Orders Only | [facility] | Conversion | | | 2018 | | NEPRHOLOGY [place] | Transaction, | | | | | [address] | Provider Unknown | | | | | [address] [place] | [phone] | | | | | [address] | | | | | | [phone] | | | +--------+ + + + [...]
--- OUTSIDE RECORDS SUMMARY | ~2020-03-25 | XMS | Encounter Summary ---
Demographics + + + | Address | [address] | | | [place] [address] | + + + | Home Phone | | + + + | Preferred Language | Unknown | + + + | Marital Status | Single | + + + | Anabaptism Affiliation | 1013 | + + + | Race | Unknown | + + + | Ethnic Group | Unknown | + + + Author + + + | Author | [facility] | | | and [place] | + + + | Organization | [facility] | | | and [...] Team Providers + +------+ + | Care Carousel Attendant Name | Role | Phone | + +------+ + | Kelly Alfonso | PCP | | | PA | | | + +------+ + Encounter Details +--------+ + + + + | Date | Type | Department | Care Team | Description | +--------+ + + + + | 12/02/ | Orders Only | [facility] | Konrad Raphael MD | | | 2017 | | NEPHROLOGY [place] | [address] [place] | | | | | [address] [place] | [address] [place], [place] | | | | | [address] [place], [place] | [address] | | | | | [address] | | | | | | [phone] | | | +--------+ + + + [...] | | | LAB | | | [place] | | | | | + + [...]
--- OUTSIDE RECORDS SUMMARY | ~2020-03-25 | XMS | Encounter Summary ---
Demographics + + + | Address | [address] | | | [place] [address] | + + + | Home Phone | | + + + | Preferred Language | Unknown | + + + | Marital Status | Single | + + + | Hindu Affiliation | 1013 | + + + | Race | Unknown | + + + | Ethnic Group | Unknown | + + + Author + + + | Author | [facility] | | | and [place] | + + + | Organization | [facility] [...] Team Providers + +------+ + | Care Water Chemist Name | Role | Phone | + +------+ + | Kelly Alfonso | PCP | | | PA | | | + +------+ + Encounter Details +--------+ + + + + | Date | Type | Department | Care Team | Description | +--------+ + + + + | 10/07/ | Orders Only | [facility] | Conversion | | | 2016 | | NEPRHOLOGY [place] | Transaction, | | | | | [address] | Provider Unknown | | | | | [address] [facility] [place] | [phone] | | | | | [address] | | | | | | [phone] | | | +--------+ + + + [...]
--- OUTSIDE RECORDS SUMMARY | ~2020-03-25 | XMS | Encounter Summary ---
Demographics + + + | Address | [address] | | | [place] [address] | + + + | Home Phone | | + + + | Preferred Language | Unknown | + + + | Marital Status | Single | + + + | Confucianist Affiliation | 1013 | + + + | Race | Unknown | + + + | Ethnic Group | Unknown | + + + Author + + + | Author | [facility] | | | and [place] | + + + | Organization | [facility] | | [...] Team Providers + +------+ + | Care Earth Science Teacher Name | Role | Phone | [...] [place], | | | | | [place], [place] | [place] [address] | | | | | [address] | [phone] | | | | | [phone] | | | +--------+ + + + [...]
--- OUTSIDE RECORDS SUMMARY | ~2020-03-25 | XMS | Encounter Summary ---
Demographics + + + | Address | [address] | | | [place] [address] | + + + | Home Phone [...] Organization | [facility] | | | and [place] [...] Team Providers + +------+ + | Care Transcription Manager Name | Role | Phone | + +------+ + | Kelly Alfonso | PCP | | | PA | | | + +------+ + Encounter Details +--------+ + + + + | Date | Type | Department | Care Team | Description | +--------+ + + + + | 12/16/ | Orders Only | [facility] | Conversion | | | 2017 | | NEPHROLOGY [place] | Transaction, | | | | | [address] | Provider Unknown | | | | | [address] [place] | [phone] | | | | | [address] | | | | | | [phone] | | | +--------+ + + + [...] - 1.030 | EXTERNAL | | | [place], | | | LAB | | | [...] | | | LAB | | | [place] | | | | | + +---------+ [...]
--- OUTSIDE RECORDS SUMMARY | ~2020-03-25 | XMS | Encounter Summary ---
Demographics + + + | Address | [address] | | | [place] [address] | + + + | Home Phone | | + + + | Preferred Language | Unknown | + + + | Marital Status | Single | + + + | Anabaptist Affiliation | 1013 | + + + | Race | Unknown | + + + | Ethnic Group | Unknown | + + + Author + + + | Author | [facility] | | | and [place] | + + + | Organization | [facility] | | | and [place] | [...] Team Providers + +------+ + | Care Clay Caster Name | Role | Phone | + [...] [place], | | | | | [place], [place] | [place] [address] | | | | | [address] | [phone] | | | | | [phone] | | | +--------+ + + + [...]
--- OUTSIDE RECORDS SUMMARY | ~2020-03-25 | XMS | Encounter Summary ---
Demographics + + + | Address | [address] | | | [place] [address] | + + + | Home Phone [...] + | Author | [facility] | | | and [place] | + + + | Organization | [facility] | [...] Team Providers + +------+ + | Care Hand Coke Drawer Name | Role | Phone | + [...] + + | 07/13/ | Telephone | [facility] [place] | Charles Lino MD | Neck Pain (throat, | | 2013 | | OTOLARYNGOLOGY [address] | [address] | post op) | | | | [address] | [address], | | | | | [place], [place] | [place] [address] | | | | | [address] | [phone] | | | | | [phone] | | | +--------+ + + + [...]
--- OUTSIDE RECORDS SUMMARY | ~2020-03-25 | XMS | Encounter Summary ---
Demographics + + + | Address | [address] | | | [place] [address] | + + + | Home Phone | | + + + | Preferred Language | Unknown | + + + | Marital Status | Single | + + + | Sikh Affiliation | 1013 | + + + | Race | Unknown | + + + | Ethnic Group | Unknown | + + + Author + + + | Author | [facility] | | | and [place] | + + + | Organization | [facility] | [...] Team Providers + +------+ + | Care Header Up Name | Role | Phone | + +------+ + | Kelly Alfonso | PCP | | | PA | | | + +------+ + Encounter Details +--------+ + + + + | Date | Type | Department | Care Team | Description | +--------+ + + + + | 10/27/ | Orders Only | [facility] | Conversion | | | 2018 | | NEPRHOLOGY [place] | Transaction, | | | | | [address] | Provider Unknown | | | | | [address] [place] | [phone] | | | | | [address] | | | | | | [phone] | | | +--------+ + + + [...]
--- OUTSIDE RECORDS SUMMARY | ~2020-03-25 | XMS | Encounter Summary ---
Demographics + + + | Address | [address] | | | [place] [address] | + + + | Home Phone [...] + + | Organization | [facility] | | | and [...] Team Providers + +------+ + | Care Sweetbread Trimmer Name | Role | Phone | + [...] | | [place] | [place] [address] | | | | | [address] | | | | | | [phone] | | | +--------+ + + + [...]
--- OUTSIDE RECORDS SUMMARY | ~2020-03-25 | XMS | Encounter Summary ---
Demographics + + + | Address | [address] | | | [place] [address] | + + + | Home Phone | | + + + | Preferred Language | Unknown | + + + | Marital Status | Single | + + + | Baptist Affiliation | 1013 | + + + | Race | Unknown | + + + | Ethnic Group | Unknown | + + + Author + + + | Author | [facility] | | | and [place] | + + + | Organization | [facility] | | [...] Team Providers + +------+ + | Care Motion Picture Scene Builder Name | Role | Phone | + [...] [place], | | | | | [place], [place] | [place] [address] | | | | | [address] | [phone] | | | | | [phone] | | | +--------+ + + + [...]
--- OUTSIDE RECORDS SUMMARY | ~2020-03-25 | XMS | Encounter Summary ---
Demographics + + + | Address | [address] | | | [place] [address] | + + + | Home Phone | | + + + | Preferred Language | Unknown | + + + | Marital Status | Single | + + + | Advent Affiliation | 1013 | + + + | Race | Unknown | + + + | Ethnic Group | Unknown | + + + Author + + + | Author | [facility] | | | and [place] | + + + | Organization | 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
--- OUTSIDE RECORDS SUMMARY | ~2020-03-25 | XMS | Encounter Summary ---
Demographics + + + | Address | [address] | | | [place] [address] | + + + | Home Phone | | + + + | Preferred Language | Unknown | + + + | Marital Status | Single | + + + | Protestant Affiliation | 1013 | + + + | Race | Unknown | + + + | Ethnic Group | Unknown | + + + Author + + + | Author | [facility] | | | and [place]esto[place] | + + + | Organization | [facility] | | | and [...] Team Providers + +------+ + | Care Economic Consultant Name | Role | Phone | [...] [place], | | | | | [place], [place] | [place] [address] | | | | | [address] | [phone] | | | | | [phone] | | | +--------+--------+ + + + [...]
--- OUTSIDE RECORDS SUMMARY | ~2020-03-25 | XMS | Encounter Summary ---
Demographics + + + | Address | [address] | | | [place] [address] | + + + | Home Phone | | + + + | Preferred Language | Unknown | + + + | Marital Status | Single | + + + | Muslim Affiliation | 1013 | + + + | Race | Unknown | + + + | Ethnic Group | Unknown | + + + Author + + + | Author | [facility] | | | and [place] | + + + | Organization | [facility] | | | and Ernestoana [...] Team Providers + +------+ + | Care Hearing Screen Coordinator Name | Role | Phone | [...] | Procedures | [place] | [place] [address] | | | | | [place] | [address] | Phone: | | | | | LARYNGOSCOPY | Phone: | [phone] | | | | | ,DIRCT,OP | [phone] | Fax: | | | | | SCOP,EXC | Fax: | [phone] | | | | | TUMR | [phone] | | +--------+ + + + + [...] | | | | [place] | [place] [address] | | | | | [address] | [phone] | | | | | [phone] | | | +--------+ + + + [...]
--- OUTSIDE RECORDS SUMMARY | ~2020-03-25 | XMS | Encounter Summary ---
Demographics + + + | Address | [address] | | | [place] [address] | + + + | Home Phone [...] + + + | Author | [facility] | | | and [place]esto[place] | + + + | Organization | [facility] | | | and Ernestoana [...] Team Providers + +------+ + | Care Pipe Setter Name | Role | Phone | + [...] | | | [place] | [place] [address] | | | | | [address] | [phone] | | | | | [phone] | | | +--------+ + + + [...]
--- OUTSIDE RECORDS SUMMARY | ~2020-03-25 | XMS | Encounter Summary ---
Demographics + + + | Address | [address] | | | [place] [address] | + + + | Home Phone | | + + + | Preferred Language | Unknown | + + + | Marital Status | Single | + + + | Evangelical Affiliation | 1013 | + + + | Race | Unknown | + + + | Ethnic Group | Unknown | + + + Author + + + | Author | [facility] | | | and Ernesto[place] | + + + | Organization | [facility] | | | and [...] Team Providers + +------+ + | Care Plumber Assistant Name | Role | Phone | [...] [place], | | | | | [place], [place] | [place] [address] | | | | | [address] | [phone] | | | | | [phone] | | | +--------+--------+ + + + [...]
--- OUTSIDE RECORDS SUMMARY | ~2020-03-25 | XMS | Encounter Summary ---
Demographics + + + | Address | [address] | | | [place] [address] | + + + | Home Phone | | + + + | Preferred Language | Unknown | + + + | Marital Status | Single | + + + | Scientologist Affiliation | 1013 | + + + | Race | Unknown | + + + | Ethnic Group | Unknown | + + + Author + + + | Author | [facility] | | | and [place] | + + + | Organization | [facility] | | | and Ernestoana [...] Team Providers + +------+ + | Care Food Technologist Name | Role | Phone | + [...] Description | +--------+--------+ + + + | 01/13/ | Refill | [facility] [place] | Charles Lino MD | Medication Refill | | 2015 | | OTOLARYNGOLOGY [address] | [address] | | | | | [address] | [address] [place], | | | | | [place], [place] | [place] [address] | | | | | [address] | [phone] | | | | | [phone] | | | +--------+--------+ + + + [...]
--- OUTSIDE RECORDS SUMMARY | ~2020-03-25 | XMS | Encounter Summary ---
Demographics + + + | Address | [address] | | | [place] [address] | + + + | Home Phone [...] Organization | [facility] | | | and Ernestoana [...] Team Providers + +------+ + | Care Sheeter Machine Operator Name | Role | Phone | + +------+ + | Kelly Alfonso | PCP | | | [place] | | | + +------+ + Encounter Details +--------+ + + + + | Date | Type | Department | Care Team | Description | +--------+ + + + + | 12/02/ | Orders Only | [facility] | Konrad Raphael MD | | | 2017 | | NEPHROLOGY [place] | [address] | | | | | [address] | [address] [place], [place] | | | | | [address] [place], [place] | [address] | | | | | [address] | | | | | | [phone] | | | +--------+ + + + [...] | | | LAB | | | NIGERIAN | | | | | + + [...]
--- OUTSIDE RECORDS SUMMARY | ~2020-03-25 | XMS | Encounter Summary ---
Demographics + + + | Address | [address] | | | [place] [address] | + + + | Home Phone | | + + + | Preferred Language | Unknown | + + + | Marital Status | Single | + + + | Buddhist Affiliation | 1013 | + + + | Race | Unknown | + + + | Ethnic Group | Unknown | + + + Author + + + | Author | and Services Etienne | | | and Ernestoana | + + + | Organization | and [facility] Etienne | | | and [...] Team Providers + +------+ + | Care Motor Rebuilder Name | Role | Phone | + [...] | MED CTR EXTERNAL | MD [address] | | | | | IMAGING [address] | [address] | | | | | [place] | [place] [address] | | | | | [place] [address] | | | | | | [phone] | | | +--------+ + + + [...] this | | VW | e | 11:35 AM | | procedure are in the | | | | PDT | | results section. | + +--------+ + + + documented in this encounter Results XR Lumbar Spine 4 + Vw (08/06/2018 11:35 AM PDT) + + | Specimen | [...]
--- OUTSIDE RECORDS SUMMARY | ~2020-03-25 | XMS | Encounter Summary ---
Demographics + + + | Address | [address] | | | [place] [address] | + + + | Home Phone | | + + + | Preferred Language | Unknown | + + + | Marital Status | Single | + + + | Muslim Affiliation | 1013 | + + + | Race | Unknown | + + + | Ethnic Group | Unknown | + + + Author + + + | Author | [facility] and Services [facility] | | | and Ernestoana | + + + | Organization | [facility]ienne | | | and [...] Team Providers + +------+ + | Care Microbiology Lab Manager Name | Role | Phone | [...] [place], | | | | | [place], [place] | [place] [address] | | | | | [address] | [phone] | | | | | [phone] | | | +--------+ + + + [...]
--- OUTSIDE RECORDS SUMMARY | ~2020-03-25 | XMS | Encounter Summary ---
Demographics + + + | Address | [address] | | | [place] [address] | + + + | Home Phone | | + + + | Preferred Language | Unknown | + + + | Marital Status | Single | + + + | Scientology Affiliation | 1013 | + + + | Race | Unknown | + + + | Ethnic Group | Unknown | + + + Author + + + | Author | [facility] and Services [facility] | | | and Ernestoana | + + + | Organization | [facility] and [facility] Etienne | | | and [...] Providers + +------+ + | Care Police Justice Name | Role | Phone | + [...] | | | | | | | [place] | | | | | | | [...] + + | 07/12/ | Anesthesia | [facility] | Kolby Benoit | | | 2013 | Event | MED CTR OR INTRA OP | MD Willie [address] | | | | | [address] | [address] [place] | | | | | [place] | [address] | | | | | [address] | | | | | | [phone] | | | +--------+ + + + [...]
--- OUTSIDE RECORDS SUMMARY | ~2020-03-25 | XMS | Encounter Summary ---
Demographics + + + | Address | [address] | | | [place] [address] | + + + | Home Phone [...] Organization | [facility] | | | and [...] Team Providers + +------+ + | Care Fire Inspector Name | Role | Phone | + +------+ + | Kelly Alfonso | PCP | | | [place] | | | + +------+ + Encounter Details +--------+ + + + + | Date | Type | Department | Care Team | Description | +--------+ + + + + | 10/27/ | Orders Only | [facility] | Bernard Doe, | | | 2017 | | NEPRHOLOGY [place] | SENIOR PRINCIPAL ARCHITECT [address] | | | | | [address] | [address] | | | | | [address] [place], [place] | [place], [place] | | | | | [address] | [address] | | | | | [phone] | [phone] | | | | | | | [...]
--- OUTSIDE RECORDS SUMMARY | ~2020-03-25 | XMS | Encounter Summary ---
Demographics + + + | Address | [address] | | | [place] [address] | + + + | Home Phone | | + + + | Preferred Language | Unknown | + + + | Marital Status | Single | + + + | Mandaeism Affiliation | 1013 | + + + | Race | Unknown | + + + | Ethnic Group | Unknown | + + + Author + + + | Author | [facility] and Services [facility] | | | and Ernestoana | + + + | Organization | [facility] and [facility] Etienne | | | and [...] Team Providers + +------+ + | Care Renal Medicine Specialist Name | Role | Phone | [...] | MED CTR EXTERNAL | MD [address] | | | | | IMAGING [address] | [address] | | | | | [address] [place] | [place] [address] | | | | | [place] [address] | | | | | | [phone] | | | +--------+ + + + [...]
--- OUTSIDE RECORDS SUMMARY | ~2020-03-25 | XMS | Encounter Summary ---
Demographics + + + | Address | [address] | | | [place] [address] | + + + | Home Phone [...] | Organization | [facility] | | | and Ernestoana [...] Team Providers + +------+ + | Care Table Games Dual Rate Supervisor Name | Role | Phone | [...] | MED CTR EXTERNAL | MD [address] | | | | | IMAGING [address] | [address] | | | | | [place] | [place] [address] | | | | | [place] [address] | | | | | | [phone] | | | +--------+ + + + [...]
--- OUTSIDE RECORDS SUMMARY | ~2020-03-25 | XMS | Encounter Summary ---
Demographics + + + | Address | [address] | | | [place] [address] | + + + | Home Phone [...] + + + | Author | [facility] and Services [facility]ienne | | | and Ernestoana | + + + | Organization | [facility] | [...] Team Providers + +------+ + | Care Chin Strap Cutter Name | Role | Phone | + +------+ + | Kelly Alfonso | PCP | | | PA | | | + +------+ + Encounter Details +--------+ + + + + | Date | Type | Department | Care Team | Description | +--------+ + + + + | 01/08/ | Orders Only | [facility] | Conversion | | | 2016 | | NEPHROLOGY [place] | Transaction, | | | | | [address] | Provider Unknown | | | | | [address] [place] | [phone] | | | | | [address] | | | | | | [phone] | | | +--------+ + + + [...] - 1.030 | EXTERNAL | | | [place], | | | LAB | | | [...]
--- OUTSIDE RECORDS SUMMARY | ~2020-03-25 | XMS | Encounter Summary ---
Demographics + + + | Address | [address] | | | [place] [address] | + + + | Home Phone [...] Organization | [facility] [...] Team Providers + +------+ + | Care Insurance Loss Assessor Name | Role | Phone | + +------+ + | Kelly Alfonso | PCP | | | [place] | | | + +------+ + Encounter Details +--------+ + + + + | Date | Type | Department | Care Team | Description | +--------+ + + + + | 10/27/ | Orders Only | [facility] | Bernard Doe, | | | 2017 | | NEPRHOLOGY [place] | [address] JUD[address] | | | | | [address] | [address] | | | | | [address] [place], [place] | [place], [place] | | | | | [address] | [address] | | | | | [phone] | [phone] | | | | | | | [...] | | | LAB | | | [place] | | | | | + + [...]
--- OUTSIDE RECORDS SUMMARY | ~2020-03-25 | XMS | Encounter Summary ---
Demographics + + + | Address | [address] | | | [place] [address] | + + + | Home Phone | | + + + | Preferred Language | Unknown | + + + | Marital Status | Single | + + + | Anglican Affiliation | 1013 | + + + | Race | Unknown | + + + | Ethnic Group | Unknown | + + + Author + + + | Author | [facility] and [facility] | | | and Ernestoana | + + + | Organization | [facility] | | | and [...] Team Providers + +------+ + | Care Outside Sales Account Representative Name | Role | Phone | [...] | Procedures | [place] | [place] [address] | | | | | [place] | [address] | Phone: | | | | | LARYNGOSCOPY | Phone: | [phone] | | | | | ,DIRCT,OP | [phone] | Fax: | | | | | SCOP,EXC | Fax: | [phone] | | | | | TUMR | [phone] | | +--------+ + + + + [...] | | | | [place] | [place] [address] | | | | | [address] | [phone] | | | | | [phone] | | | +--------+ + + + [...]
--- OUTSIDE RECORDS SUMMARY | ~2020-03-25 | XMS | Encounter Summary ---
Demographics + + + | Address | [address] | | | [place] [address] | + + + | Home Phone [...] | Author | [facility] and [facility] | | | and Ernestoana | + + + | Organization | [facility] and [facility] | | | and [...] Team Providers + +------+ + | Care Disabilities Services Officer Name | Role | Phone | [...] | | | | | Procedures | [address] | [place] [address] | | | | | NEW PATIENT | Phone: | Phone: | | | | | | [phone] | [phone] | | | | | | Fax: | Fax: | | | | | | [phone] | [phone] | +--------+--------+ + + + + Encounter [...] | | | [place] | [place] [address] | | | | | [address] | [phone] | | | | | [phone] | | | +--------+---------+ + + + [...] - 07/21/2014 3:27 PM PDTSee dictation # [id number] signed by Charles Lino MD at 07/21/2014 3:30 PM Charles Henderson MD - 07/21/2014 12:00 AM PDT ENT AND AUDIOLOGY [address] [address] FAX: [phone] OFFICE VISIT The patient had a direct [...] Charles Lino MD / MINA JOB #: [id number] signed by Charles Lino MD at 07/21/2014 4:48 PM PDTdocumente d in this encounter Plan of Treatment Not on filedocumented as of this encounter Visit Diagnoses + + | Diagnosis | + + | Other diseases of vocal cords - Primary | + + documented in this encounter
--- OUTSIDE RECORDS SUMMARY | ~2020-03-25 | XMS | Encounter Summary ---
Demographics + + + | Address | [address] | | | [place] [address] | + + + | Home Phone | | + + + | Preferred Language | Unknown | + + + | Marital Status | Single | + + + | Mormonism Affiliation | 1013 | + + + | Race | Unknown | + + + | Ethnic Group | Unknown | + + + Author + + + | Author | [facility] | | | and Ernestoana | + + + | Organization | [facility] | | | and [...] Team Providers + +------+ + | Care Workforce Development Vice President Name | Role | Phone | + +------+ + | Kelly Alfonso | PCP | | | [place] | | | + +------+ + Encounter Details +--------+ + + + + | Date | Type | Department | Care Team | Description | +--------+ + + + + | 05/26/ | Orders Only | [facility] | Conversion | | | 2018 | | NEPRHOLOGY [place] | Transaction, | | | | | [address] | Provider Unknown | | | | | [address] [place] | [phone] | | | | | [address] | | | | | | [phone] | | | +--------+ + + + [...]
--- OUTSIDE RECORDS SUMMARY | ~2020-03-25 | XMS | Encounter Summary ---
Demographics + + + | Address | [address] | | | [place] [address] | + + + | Home Phone | | + + + | Preferred Language | Unknown | + + + | Marital Status | Single | + + + | Denominational Affiliation | 1013 | + + + | Race | Unknown | + + + | Ethnic Group | Unknown | + + + Author + + + | Author | [facility] | | | and Ernestoana | + + + | Organization | [facility] | | | and [...] Providers + +------+ + | Care Metal Casket Assembler Name | Role | Phone | [...] [place], | | | | | [place], [place] | [place] [address] | | | | | [address] | [phone] | | | | | [phone] | | | +--------+--------+ + + + [...]
--- OUTSIDE RECORDS SUMMARY | ~2020-03-25 | XMS | Encounter Summary ---
Demographics + + + | Address | [address] | | | [place] [address] | + + + | Home Phone | | + + + | Preferred Language | Unknown | + + + | Marital Status | Single | + + + | Methodist Affiliation | 1013 | + + + | Race | Unknown | + + + | Ethnic Group | Unknown | + + + Author + + + | Author | [facility] | | | and Ernestoana | + + + | Organization | [facility] | | [...] Team Providers + +------+ + | Care Utilization Review Rn Name | Role | Phone | + [...] | | | | Procedures | | [place] [address] | | | | | OFFICE | | Phone: | | | | | VISIT | | [phone] | | | | | REGULAR | | Fax: | | | | | | | [phone] | +--------+--------+ + + + + Encounter Details +--------+---------+ + + + | Date | Type | Department | Care Team | Description | +--------+---------+ + + + | 11/25/ | Office | [facility] | Charles Rivas MD | Dysphonia (Primary | | 2015 | Visit | OTOLARYNGOLOGY [address] | [address] | Dx) | | | | [address] | [address] [place], | | | | | [place], [place] | [place] [address] | | | | | [address] | [phone] | | | | | [phone] | | | +--------+---------+ + + + [...] MD - 11/25/2014 12:11 PM PST [facility] OTOLARYNGOLOGY [address] [facility] [address] OFFICE NOTE CHARLES RIVAS MD Patient: YAMILA YEAGER Admitting: MR #: [id number] LOC: PT TYPE: Adm Date: 11/25/2014 : [...] vocal function. CHARLES RIVAS MD Dictated by CHALRES RIVAS MD 11/25/2014 12:11:46 Transcribed on 11/25/2014 12:30:21 by job# [id number] Confirmation #: [id number] cc: BINDU CALLE DO [facility], Charles Alvarez MD - 11/25/2014 12:08 PM PSTSee dictation # [id number] signed by Charles Rivas MD at 11/25/2014 12:12 PM PSTdocumented in th is encounter Plan of Treatment Not on filedocumented as of this encounter Visit Diagnoses + + | Diagnosis | + + | Dysphonia - Primary | + + documented in this encounter
--- OUTSIDE RECORDS SUMMARY | ~2020-03-25 | XMS | Encounter Summary ---
Demographics + + + | Address | [address] | | | [place] [address] | + + + | Home Phone [...] | [facility] | | [...] Team Providers + +------+ + | Care Rn Child Name | Role | Phone | + +------+ + | Kelly Alfonso | PCP | | | PA | | | + +------+ + Encounter Details +--------+ + + + + | Date | Type | Department | Care Team | Description | +--------+ + + + + | 10/27/ | Orders Only | [facility] | Bernard Doe, | | | 2017 | | NEPRHOLOGY [place] | SOCIETY REPORTER [address] | | | | | [address] | [address] | | | | | [address] [place], [place] | [place], [place] | | | | | [address] | [address] | | | | | [phone] | [phone] | | | | | | | [...]
--- OUTSIDE RECORDS SUMMARY | ~2020-03-25 | XMS | Encounter Summary ---
Demographics + + + | Address | [address] | | | [place] [address] | + + + | Home Phone [...] [facility] | [...] Team Providers + +------+ + | Care Equal Opportunity Officer Name | Role | Phone | [...] [place], | | | | | [place], [place] | [place] [address] | | | | | [address] | [phone] | | | | | [phone] | | | +--------+ + + + [...]
--- OUTSIDE RECORDS SUMMARY | ~2020-03-25 | XMS | Encounter Summary ---
Demographics + + + | Address | [address] | | | [place] [address] | + + + | Home Phone | | + + + | Preferred Language | Unknown | + + + | Marital Status | Single | + + + | Jainism Affiliation | 1013 | + + + | Race | Unknown | + + + | Ethnic Group | Unknown | + + + Author + + + | Author | [facility] | | | and Ernestoana | + + + | Organization | [facility] | [...] Team Providers + +------+ + | Care Department Director Name | Role | Phone | [...] [place], | | | | | [place], [place] | [place] [address] | | | | | [address] | [phone] | | | | | [phone] | | | +--------+--------+ + + + [...]
--- OUTSIDE RECORDS SUMMARY | ~2020-03-25 | XMS | Encounter Summary ---
Demographics + + + | Address | [address] | | | [place] [address] | + + + | Home Phone [...] + | Organization | [facility] | | | and Ernestoana | [...] Providers + +------+ + | Care Hand Buffer Name | Role | Phone | + [...] [place], | | | | | [place], [place] | [place] [address] | | | | | [address] | [phone] | | | | | [phone] | | | +--------+--------+ + + + [...]
--- OUTSIDE RECORDS SUMMARY | ~2020-03-25 | XMS | Encounter Summary ---
Demographics + + + | Address | [address] | | | [place] [address] | + + + | Home Phone [...] + | Organization | [facility] | | | [...] Team Providers + +------+ + | Care Solar Sales Associate Name | Role | Phone | + +------+ + | Kelly Alfonso | PCP | | | PA | | | + +------+ + Encounter Details +--------+ + + + + | Date | Type | Department | Care Team | Description | +--------+ + + + + | 10/27/ | Orders Only | [facility] | Bernard Doe, | | | 2017 | | NEPRHOLOGY [place] | UX DESIGN LEAD [address] | | | | | [address] | [address] | | | | | [address] [place], [place] | [place], [place] | | | | | [address] | [address] | | | | | [phone] | [phone] | | | | | | | [...] [place] | | | | | + + [...]
--- OUTSIDE RECORDS SUMMARY | ~2020-03-25 | XMS | Encounter Summary ---
Demographics + + + | Address | [address] | | | [place] [address] | + + + | Home Phone | | + + + | Preferred Language | Unknown | + + + | Marital Status | Single | + + + | Mu-Ism Affiliation | 1013 | + + + | Race | Unknown | + + + | Ethnic Group | Unknown | + + + Author + + + | Author | [facility] | | | and Ernestoana | + + + | Organization | [facility] | | | and [...] Team Providers + +------+ + | Care Musculoskeletal Physician Name | Role | Phone | + [...] + + | 07/13/ | Telephone | [facility] [place] | Charles Lino MD | Neck Pain (throat, | | 2013 | | OTOLARYNGOLOGY [address] | [address] | post op) | | | | [address] | [address] [place], | | | | | [place], [place] | [place] [address] | | | | | [address] | [phone] | | | | | [phone] | | | +--------+ + + + [...]
--- OUTSIDE RECORDS SUMMARY | ~2020-03-25 | XMS | Clinical Summary ---
Demographics + + + | Address | [address] | | | [place] [address] | + + + | Home Phone | | + + + | Preferred Language | Unknown | + + + | Marital Status | Unknown | + + + | Jewish Affiliation | Unknown | + + + | Race | Unknown | + + + | Ethnic Group | Unknown | + + + Author + + + | Author | [facility] (Historical as of | | | 07-03-19) | + + + | Organization | [facility] (Historical as of | | | 07-03-19) [...] + + | No,Contact | ECON | [address] | | | | | [place] | | | | | [address] | | + + + + + Care Team Providers + +------+ + | Care Engagement Executive Name | Role | Phone | + [...] + | [facility] | PROVID | [id number] | PPO | | | | PLAN | ENCE | | | | | | | HEALTH | | | | | | | PLAN | | | | | + +--------+ +------+-------+ + | MEDICAID | [place] | [id number] | | | [address] | | | N | | | | [place], [place] | | | [place] | | | | [address] | | | SCREEN PRINTING 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
--- OUTSIDE RECORDS SUMMARY | ~2020-03-25 | XMS | Encounter Summary ---
Demographics + + + | Address | [address] | | | [place] [address] | + + + | Home Phone [...] + + + | Author | [facility] | | | and Ernestoana | + + + | Organization | [facility] | | | and Ernestoana [...] Team Providers + +------+ + | Care Administrative Technician Name | Role | Phone | + +------+ + | Kelly Alfonso | PCP | | | PA | | | + +------+ + Encounter Details +--------+ + + + + | Date | Type | Department | Care Team | Description | +--------+ + + + + | 09/24/ | Orders Only | [facility] | Conversion | | | 2017 | | NEPRHOLOGY [place] | Transaction, | | | | | [address] | Provider Unknown | | | | | [address] [facility] [place] | [phone] | | | | | [address] | | | | | | [phone] | | | +--------+ + + + [...]
--- OUTSIDE RECORDS SUMMARY | ~2020-03-25 | XMS | Encounter Summary ---
Demographics + + + | Address | [address] | | | [place] [address] | + + + | Home Phone | | + + + | Preferred Language | Unknown | + + + | Marital Status | Single | + + + | Gnosticism Affiliation | 1013 | + + + | Race | Unknown | + + + | Ethnic Group | Unknown | + + + Author + + + | Author | [facility] | | | and Ernestoana | + + + | Organization | [facility] | | | and Ernestoana [...] Team Providers + +------+ + | Care Supervisor Building Maintenance Name | Role | Phone | + [...] | | | | | Procedures | [address] | [place] [address] | | | | | NEW PATIENT | Phone: | Phone: | | | | | | [phone] | [phone] | | | | | | Fax: | Fax: | | | | | | [phone] | [phone] | +--------+--------+ + + + + Encounter Details +--------+---------+ + + + | Date | Type | Department | Care Team | Description | +--------+---------+ + + + | 12/12/ | Office | [facility] | Charles Lino MD | Conversion disorder | | 2013 | Visit | OTOLARYNGOLOGY [address] | [address] | (Primary Dx) | | | | [address] | [address] [place], | | | | | [place], [place] | [place] [address] | | | | | [address] | [phone] | | | | | [phone] | | | +--------+---------+ + + + [...] - 10/28/2014 12:05 PM PSTSee dictation # [id number] signed by Charles Lino MD at 10/28/2014 12:10 PM Charles Nath MD - 10/28/2014 12:00 AM PST ENT AND AUDIOLOGY [address] [address] FAX: [phone] OFFICE VISIT HISTORY: The patient had a nodule removed from her vocal cord back about 3 months ago. Her voice was doing very well until about 3 weeks ago when she started to have some raspiness, but more soreness and discomfort. 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 No [...] progres sing normally. Charles Lino MD / [facility] JOB #: [id number] signed by Charles Lino MD at 2014 8:25 AM PSTdocumente d in this encounter Plan of Treatment Not on filedocumented as of this encounter Visit Diagnoses + + | Diagnosis | + + | Conversion disorder - Primary | + + documented in this encounter
--- OUTSIDE RECORDS SUMMARY | ~2020-03-25 | XMS | Encounter Summary ---
Demographics + + + | Address | [address] | | | [place] [address] | + + + | Home Phone [...] Organization | [facility] | | | and Ernestoana [...] Providers + +------+ + | Care Supervisor Buffing And Pasting Name | Role | Phone | + [...] | [place], [place] | [place] [address] | | | | | [address] | [phone] | | | | | [phone] | | | +--------+ + + + [...]
--- OUTSIDE RECORDS SUMMARY | ~2020-03-25 | XMS | Encounter Summary ---
Demographics + + + | Address | [address] | | | [place] [address] | + + + | Home Phone | | + + + | Preferred Language | Unknown | + + + | Marital Status | Single | + + + | Religion Affiliation | 1013 | + + + | Race | Unknown | + + + | Ethnic Group | Unknown | + + + Author + + + | Author | [facility] | | | and Ernesto[place] | + + + | Organization | [facility] | [...] Team Providers + +------+ + | Care Anthropology And Archeology Instructor Name | Role | Phone | + +------+ + | Kelly Alfonso | PCP | | | PA | | | + +------+ + Encounter Details +--------+ + + + + | Date | Type | Department | Care Team | Description | +--------+ + + + + | 09/09/ | Orders Only | [facility] | Bernard Doe, | | | 2016 | | NEPHROLOGY BARBIE | MANAGER DATABASE ADMINISTRATION [address] | | | | | [address] | [address] | | | | | [address] | [place] | | | | | [address] | [address] | | | | | [phone] | [phone] | | | | | | | [...]
--- OUTSIDE RECORDS SUMMARY | ~2020-03-25 | XMS | Encounter Summary ---
Demographics + + + | Address | [address] | | | [place] [address] | + + + | Home Phone [...] | Organization | [facility] | | | and Erenstoana | + + + | Address | Unknown | + + + | Phone | Unavailable | + + + Support + + +---------+ + | Name | Relationship | Address | Phone | + + +---------+ + | Mandie Singh | ECON | Unknown | | + + +---------+ + Care Team Providers + +------+ + | Care Sales And Marketing Coordinator Name | Role | Phone | [...] [place], | | | | | [place], [place] | [place] [address] | | | | | [address] | [phone] | | | | | [phone] | | | +--------+--------+ + + + [...]
--- OUTSIDE RECORDS SUMMARY | ~2020-03-25 | XMS | Clinical Summary ---
Demographics + + + | Address | [address] | | | [place] [address] | + + + | Home Phone | | + + + | Preferred Language | Unknown | + + + | Marital Status | Unknown | + + + | Scientology Affiliation | Unknown | + + + | Race | Unknown | + + + | Ethnic Group | Unknown | + + + Author + + + | Author | [facility] (Historical as of | | | 07-03-19) | + + + | Organization | [facility] (Historical as of | | | 07-03-19) [...] + + | No,Contact | ECON | [address] | | | | | [place] | | | | | [address] | | + + + + + Care Team Providers + +------+ + | Care Animal Warden Name | Role | Phone | + [...] + | [facility] | PROVID | [id number] | PPO | | | | PLAN | ENCE | | | | | | | HEALTH | | | | | | | PLAN | | | | | + +--------+ +------+-------+ + | MEDICAID | EASTER | [id number] | | | [address] | | | N | | | | [place], [place] | | | [place] | | | | [address] | | | HAND MICA PLATE LAYER | | | | | + +--------+ [...] | Self | [birth year] | Work: | [address] | | | al/Steve | | 1969 | [phone] | [place] | | | danny | | | [address]: | [address] | | | | | | | | | | | | [phone] | | | | | | [phone] | | + +--------+ +--------+ + +
--- OUTSIDE RECORDS SUMMARY | ~2020-03-25 | XMS | Encounter Summary ---
Demographics + + + | Address | [address] | | | [place] [address] | + + + | Home Phone [...] | Organization | [facility] | | | and [...] Team Providers + +------+ + | Care Pmo Business Analyst Name | Role | Phone | [...] | MED CTR EXTERNAL | [address] | | | | | IMAGING [address] | [address] | | | | | [address] [place] | [place] [address] | | | | | [place] [address] | | | | | | [phone] | | | +--------+ + + + [...]
--- OUTSIDE RECORDS SUMMARY | ~2020-03-25 | XMS | Encounter Summary ---
Demographics + + + | Address | [address] | | | [place] [address] | + + + | Home Phone | | + + + | Preferred Language | Unknown | + + + | Marital Status | Single | + + + | Samaritan Affiliation | 1013 | + + + | Race | Unknown | + + + | Ethnic Group | Unknown | + + + Author + + + | Author | [facility] | | | and [place]esto[place] | + + + | Organization | [facility] | [...] Team Providers + +------+ + | Care Patient Observer Name | Role | Phone | + [...] Description | +--------+--------+ + + + | 11/30/ | Refill | [facility] | Charles Lino MD | Medication Refill | | 2015 | | OTOLARYNGOLOGY [address] | [address] | | | | | [address] | [address] [place], | | | | | [place], [place] | [place] [address] | | | | | [address] | [phone] | | | | | [phone] | | | +--------+--------+ + + + [...]
--- OUTSIDE RECORDS SUMMARY | ~2020-03-25 | XMS | Encounter Summary ---
Demographics + + + | Address | [address] | | | [place] [address] | + + + | Home Phone | | + + + | Preferred Language | Unknown | + + + | Marital Status | Single | + + + | Judaism Affiliation | 1013 | + + + | Race | Unknown | + + + | Ethnic Group | Unknown | + + + Author + + + | Author | [facility] | | | and [place]esto[place] | + + + | Organization | [facility] | | | and Ernestoana [...] Team Providers + +------+ + | Care Teacher'S Assistant Name | Role | Phone | + +------+ + | Noe Regan DO | PCP | | + +------+ + Encounter Details +--------+ + + + + | Date | Type | Department | Care Team | Description | +--------+ + + + + | 10/13/ | Hospital | [facility] | Conversion | Pain | | 2018 | Encounter | CONVERSION [address] | Transaction, | | | | | [address] | Provider Unknown | | | | | [place] | [phone] | | | | | [address] | | | | | | [phone] | | | +--------+ + + + [...]
--- OUTSIDE RECORDS SUMMARY | ~2020-03-25 | XMS | Encounter Summary ---
Demographics + + + | Address | [address] | | | [place] [address] | + + + | Home Phone [...] + | Organization | [facility] | | | and Ernesto[place] | + + + | Address | Unknown | + + + | Phone | Unavailable | + + + Support + + +---------+ + | Name | Relationship | Address | Phone | + + +---------+ + | Manide Singh | ECON | Unknown | | + + +---------+ + Care Team Providers + +------+ + | Care Supervisor Contingents Name | Role | Phone | + +------+ + | Noe Regan DO | PCP | | + +------+ + Encounter Details +--------+ + + + + | Date | Type | Department | Care Team | Description | +--------+ + + + + | 10/13/ | Hospital | [facility] | Conversion | Pain | | 2018 | Encounter | CONVERSION [address]P [address] | Transaction, | | | | | [address] | Provider Unknown | | | | | [place] | [phone] | | | | | [address] | | | | | | [phone] | | | +--------+ + + + [...]
--- OUTSIDE RECORDS SUMMARY | ~2020-03-25 | XMS | Encounter Summary ---
Demographics + + + | Address | [address] | | | [place] [address] | + + + | Home Phone [...] | Organization | [facility] | | [...] Team Providers + +------+ + | Care Embossing Unit Operator Name | Role | Phone | [...] | | | | | | | [place] | | | | | | | [...] + + | 07/12/ | Surgery | [facility] | Charles Lino MD | DIRECT | | 2013 | | MED CTR OR INTRA OP | [address] | MICROLARYNGOSCOPY W/ | | | | [address] | [address] [place], | EXCISION OF LEFT | | | | [place], [place] | [place] [address] | VOCAL CORD GROWTH | | | | [address] | [phone] | | | | | [phone] | | | +--------+---------+ + + + [...]
--- OUTSIDE RECORDS SUMMARY | ~2020-03-25 | XMS | Encounter Summary ---
Demographics + + + | Address | [address] | | | [place] [address] | + + + | Home Phone [...] | Organization | [facility] | | | and Ernestoana [...] Team Providers + +------+ + | Care Sr. Merchandise Planner Name | Role | Phone | + +------+ + | Noe Regan DO | PCP | | + +------+ + Encounter Details +--------+ + + + + | Date | Type | Department | Care Team | Description | +--------+ + + + + | 10/13/ | Hospital | [facility] | Conversion | Pain | | 2018 | Encounter | CONVERSION DEP [address] | Transaction, | | | | | [address] | Provider Unknown | | | | | [place] | [phone] | | | | | [address] | | | | | | [phone] | | | +--------+ + + + [...]
--- OUTSIDE RECORDS SUMMARY | ~2020-03-25 | XMS | Encounter Summary ---
Demographics + + + | Address | [address] | | | [place] [address] | + + + | Home Phone [...] | Organization | [facility] | | | and Ernestoana [...] Team Providers + +------+ + | Care Edge Grinder Name | Role | Phone | + [...] | MED CTR EXTERNAL | MD [address] | | | | | IMAGING [address] | [address] | | | | | [address] | [place] [address] | | | | | [place] [address] | | | | | | [phone] | | | +--------+ + + + [...]
--- OUTSIDE RECORDS SUMMARY | ~2020-03-25 | XMS | Encounter Summary ---
Demographics + + + | Address | [address] | | | [place] [address] | + + + | Home Phone | | + + + | Preferred Language | Unknown | + + + | Marital Status | Single | + + + | Adventist Affiliation | 1013 | + + + | Race | Unknown | + + + | Ethnic Group | Unknown | + + + Author + + + | Author | [facility] | | | and Ernestoana | + + + | Organization | [facility] | | | and [...] Team Providers + +------+ + | Care Therapist Name | Role | Phone | + [...] [place], | | | | | [place], [place] | [place] [address] | | | | | [address] | [phone] | | | | | [phone] | | | +--------+--------+ + + + [...]
--- OUTSIDE RECORDS SUMMARY | ~2020-03-25 | XMS | Encounter Summary ---
Demographics + + + | Address | [address] | | | [place] [address] | + + + | Home Phone [...] + | Organization | [facility] | | [...] Team Providers + +------+ + | Care Acetylene Torch Solderer Name | Role | Phone | + [...] + + | 01/05/ | Telephone | [facility] | Charles Lino MD | Referral | | 2015 | | OTOLARYNGOLOGY [address] | [address] | (PreAuthorization) | | | | [address] | [address] [place], | | | | | [place], [place] | [place] [address] | | | | | [address] | [phone] | | | | | [phone] | | | +--------+ + + + [...]
--- OUTSIDE RECORDS SUMMARY | ~2020-03-25 | XMS | Encounter Summary ---
Demographics + + + | Address | [address] | | | [place] [address] | + + + | Home Phone [...] + | Organization | [facility] | | | and Ernestoana [...] Team Providers + +------+ + | Care Box Storage Worker Name | Role | Phone | + [...] [place], | | | | | [place], [place] | [place] [address] | | | | | [address] | [phone] | | | | | [phone] | | | +--------+ + + + [...]
--- OUTSIDE RECORDS SUMMARY | ~2020-03-25 | XMS | Encounter Summary ---
Demographics + + + | Address | [address] | | | [place] [address] | + + + | Home Phone [...] | [facility] | | | [...] Team Providers + +------+ + | Care Sponsorship Manager Name | Role | Phone | + +------+ + | Kelly Alfonso | PCP | | | PA | | | + +------+ + Encounter Details +--------+ + + + + | Date | Type | Department | Care Team | Description | +--------+ + + + + | 09/24/ | Orders Only | [facility] | Conversion | | | 2017 | | NEPRHOLOGY NIMESH | Transaction, | | | | | [address] | Provider Unknown | | | | | [facility] [place] | [phone] | | | | | [address] | | | | | | [phone] | | | +--------+ + + + [...]
--- OUTSIDE RECORDS SUMMARY | ~2020-03-25 | XMS | Encounter Summary ---
Demographics + + + | Address | [address] | | | [place] [address] | + + + | Home Phone [...] + | Organization | [facility] | | | and [...] Team Providers + +------+ + | Care Borough Coordinator Name | Role | Phone | + +------+ + | Kelly Alfonso | PCP | | | [place] | | | + +------+ + Encounter Details +--------+ + + + + | Date | Type | Department | Care Team | Description | +--------+ + + + + | 09/09/ | Orders Only | [facility] | Bernard Doe, | | | 2016 | | NEPHROLOGY BARBIE | PSYCHIATRIC NURSE [address] | | | | | [address] | [address] | | | | | [address] | [place] | | | | | [address] | [address] | | | | | [phone] | [phone] | | | | | | | [...]
--- OUTSIDE RECORDS SUMMARY | ~2020-03-25 | XMS | Encounter Summary ---
Demographics + + + | Address | [address] | | | [place] [address] | + + + | Home Phone [...] + | Author | [facility] | | | and Ernesto[place] | + + + | Organization | [facility] | | | [...] Team Providers + +------+ + | Care Machine Setter And Repairer Name | Role | Phone | + +------+ + | Noe Regan DO | PCP | | + +------+ + Encounter Details +--------+ + + + + | Date | Type | Department | Care Team | Description | +--------+ + + + + | 10/13/ | Hospital | [facility] | Conversion | Pain | | 2018 | Encounter | CONVERSION DEP [address] | Transaction, | | | | | [address] | Provider Unknown | | | | | [place] | [phone] | | | | | [address] | | | | | | [phone] | | | +--------+ + + + [...]
--- OUTSIDE RECORDS SUMMARY | ~2020-03-25 | XMS | Encounter Summary ---
Demographics + + + | Address | [address] | | | [place] [address] | + + + | Home Phone | | + + + | Preferred Language | Unknown | + + + | Marital Status | Single | + + + | Religion Affiliation | 1013 | + + + | Race | Unknown | + + + | Ethnic Group | Unknown | + + + Author + + + | Author | [facility] | | | and Ernesto[place] | + + + | Organization | [facility] | | | [...] Team Providers + +------+ + | Care Blower Operator Name | Role | Phone | + +------+ + | Kelly Alfonso | PCP | | | PA | | | + +------+ + Encounter Details +--------+ + + + + | Date | Type | Department | Care Team | Description | +--------+ + + + + | 12/16/ | Orders Only | [facility] | Conversion | | | 2017 | | NEPHROLOGY BARBIE | Transaction, | | | | | [address] | Provider Unknown | | | | | [address] [place] | [phone] | | | | | [address] | | | | | | [phone] | | | +--------+ + + + [...] - 1.030 | EXTERNAL | | | [place], | | | LAB | | | [...] | | | LAB | | | [place] | | | | | + +---------+ [...]
--- OUTSIDE RECORDS SUMMARY | ~2020-03-25 | XMS | Encounter Summary ---
Demographics + + + | Address | [address] | | | [place] [address] | + + + | Home Phone [...] + + + | Author | [facility] | | | and Ernesto[place] | + + + | Organization | [facility] | [...] Team Providers + +------+ + | Care Assembler Dielectric Heater Name | Role | Phone | + +------+ + | Noe Regan DO | PCP | | + +------+ + Encounter Details +--------+ + + + + | Date | Type | Department | Care Team | Description | +--------+ + + + + | 10/28/ | Hospital | [facility] | Conversion | Spondylolisthesis, | | 2018 | Encounter | [facility] | Transaction, | unspecified spinal | | | | [address] | Provider Unknown | region | | | | [address] [place], [place] | [phone] | | | | | [address] | | | | | | [phone] | | | +--------+ + + + [...]
--- OUTSIDE RECORDS SUMMARY | ~2020-03-25 | XMS | Encounter Summary ---
Demographics + + + | Address | [address] | | | [place] [address] | + + + | Home Phone [...] Organization | [facility] | | | and [...] Team Providers + +------+ + | Care Cyber Crime Investigator Name | Role | Phone | + [...] [place], | | | | | [place], [place] | [place] [address] | | | | | [address] | [phone] | | | | | [phone] | | | +--------+ + + + [...]
--- OUTSIDE RECORDS SUMMARY | ~2020-03-25 | XMS | Encounter Summary ---
Demographics + + + | Address | [address] | | | [place] [address] | + + + | Home Phone | | + + + | Preferred Language | Unknown | + + + | Marital Status | Single | + + + | Yazdanism Affiliation | 1013 | + + + | Race | Unknown | + + + | Ethnic Group | Unknown | + + + Author + + + | Author | [facility] | | | and Ernesto[place] | + + + | Organization | [facility] | | | and Ernestoana [...] Team Providers + +------+ + | Care Shop Tech Name | Role | Phone | + [...] [place], | | | | | [place], [place] | [place] [address] | | | | | [address] | [phone] | | | | | [phone] | | | +--------+ + + + [...]
--- OUTSIDE RECORDS SUMMARY | ~2020-03-25 | XMS | Encounter Summary ---
Demographics + + + | Address | [address] | | | [place] [address] | + + + | Home Phone [...] | Organization | [facility] | | | and [...] Team Providers + +------+ + | Care Long Lines Operator Name | Role | Phone | [...] | MED CTR EXTERNAL | MD [address] | | | | | IMAGING [address] | [address] | | | | | [place] | [place] [address] | | | | | [place] [address] | | | | | | [phone] | | | +--------+ + + + [...]
--- OUTSIDE RECORDS SUMMARY | ~2020-03-25 | XMS | Encounter Summary ---
Demographics + + + | Address | [address] | | | [place] [address] | + + + | Home Phone [...] | [facility] | | | and Ernestoana | + + + | Organization | [facility] | [...] Providers + +------+ + | Care Food Service Kitchen Supervisor Name | Role | Phone | [...] | | | | | | | [place] | | | | | | | [...] + + | 07/12/ | Surgery | [facility] | Charles Lino MD | DIRECT | | 2013 | | MED CTR OR INTRA OP | [address] | MICROLARYNGOSCOPY W/ | | | | [address] | [address] [place], | EXCISION OF LEFT | | | | [place], [place] | [place] [address] | VOCAL CORD GROWTH | | | | [address] | [phone] | | | | | [phone] | | | +--------+---------+ + + + [...]
--- OUTSIDE RECORDS SUMMARY | ~2020-03-25 | XMS | Encounter Summary ---
Demographics + + + | Address | [address] | | | [place] [address] | + + + | Home Phone | | + + + | Preferred Language | Unknown | + + + | Marital Status | Single | + + + | Gnosticism Affiliation | 1013 | + + + | Race | Unknown | + + + | Ethnic Group | Unknown | + + + Author + + + | Author | [facility] | | | and Ernestoana | + + + | Organization | [facility] | | | and [...] Team Providers + +------+ + | Care Smasher Hand Name | Role | Phone | [...] | | | | | Procedures | [id number] | [place] [address] | | | | | NEW PATIENT | Phone: | Phone: | | | | | | [phone] | [phone] | | | | | | Fax: | Fax: | | | | | | [phone] | [phone] | +--------+--------+ + + + + Encounter Details +--------+---------+ + + + | Date | Type | Department | Care Team | Description | +--------+---------+ + + + | 06/13/ | Office | [facility] | Charles Lino MD | Other diseases of | | 2013 | Visit | OTOLARYNGOLOGY [address] | [address] | vocal cords (Primary | | | | [address] | [address] [place], | Dx); Dysphonia | | | | [place] | [place] [address] | | | | | [address] | [phone] | | | | | [phone] | | | +--------+---------+ + + + [...] MD - 06/13/2014 5:21 PM PDTSee dictation #[id number] signed by Gumaro Lino MD at 06/13/2014 5:27 PM Charles Henderson MD - 06/13/2014 12:00 AM PDT ENT AND AUDIOLOGY [address] [address] FAX: [phone] OFFICE VISIT NEW PATIENT VISIT HISTORY: The [...] Charles Lino MD / MINA JOB #: [id number] signed by Charles Lino MD at 06/14/2014 7:55 AM PDTdocumentarmand more in this encounter Plan of Treatment Not on filedocumented as of this encounter Visit Diagnoses + + | Diagnosis | + + | Other diseases of vocal cords - Primary | + + | Dysphonia | + + documented in this encounter
--- OUTSIDE RECORDS SUMMARY | ~2020-03-25 | XMS | Encounter Summary ---
Demographics + + + | Address | [address] | | | [place] [address] | + + + | Home Phone [...] [facility] | | [...] Team Providers + +------+ + | Care Business Associate Name | Role | Phone | [...] | MED CTR EXTERNAL | MD [address] | | | | | IMAGING [address] | [address] | | | | | [place] | [place] [address] | | | | | [place] [address] | | | | | | [phone] | | | +--------+ + + + [...]
--- OUTSIDE RECORDS SUMMARY | ~2020-03-25 | XMS | Encounter Summary ---
Demographics + + + | Address | [address] | | | [place] [address] | + + + | Home Phone [...] | Organization | [facility] [...] Providers + +------+ + | Care Insurance Solicitor Name | Role | Phone | + [...] [place], | | | | | [place], [place] | [place] [address] | | | | | [address] | [phone] | | | | | [phone] | | | +--------+--------+ + + + [...]
--- OUTSIDE RECORDS SUMMARY | ~2020-03-25 | XMS | Encounter Summary ---
Demographics + + + | Address | [address] | | | [place] [address] | + + + | Home Phone | | + + + | Preferred Language | Unknown | + + + | Marital Status | Single | + + + | Tenriism Affiliation | 1013 | + + + | Race | Unknown | + + + | Ethnic Group | Unknown | + + + Author + + + | Author | [facility] | | | and [place]esto[place] | + + + | Organization | [facility] | | | and Ernestoana | [...] Team Providers + +------+ + | Care Vessel Specialist Name | Role | Phone | [...] | | | [place] | [place] [address] | | | | | [address] | [phone] | | | | | [phone] | | | +--------+ + + + [...]
--- OUTSIDE RECORDS SUMMARY | ~2020-03-25 | XMS | Encounter Summary ---
Demographics + + + | Address | [address] | | | [place] [address] | + + + | Home Phone [...] | Organization | [facility] | | [...] Team Providers + +------+ + | Care Inventory Control Specialist Name | Role | Phone | [...] | | | [place], | [address] [facility] | | | | | Sacroiliitis | Marcelo Willett MD | Hemal Recio, | | | | | (HCC) | [address] | [place] | | | | | Procedures | [place] | [address] | | | | | [place] INJECT SI | [place], [place] | Phone: | | | | | JOINT | [address] | [phone] | | | | | ARTHRGRPHY&/ | Phone: | Fax: | | | | | ANES/STEROID | [phone] | [phone] | | | | | W/IMAGE SC | Fax: | | | | | | | [phone] | | | | | | TRIAMCINOLON [...] + + | 04/22/ | Hospital | [facility] | Eugenio Herrera, | Sacroiliitis (HCC) | | 2019 | Encounter | MED CTR XRAY [address] | PA-C [address] | | | | | [facility] [place] | [address] [place] | | | | | [place] [address] | [place] [address] | | | | | [phone] | [phone] | | | | | | | | | | | | Photoengraving Supervisor, [facility] | | | | | | [...] | | | | | Intra-articular, ONCE, [facility] 04/22/19 | | PM PDT | [...] PDT | | | | | ONCE, [facility] 04/22/19 at 1230, For 1 | | | | | | | dose, Shake well. Not for IV | | | | | | | use., | | | | | | + +-------+ +-------+---+---+ +---+---+ | | | +---+---+ documented in this encounter"
--- OUTSIDE RECORDS SUMMARY | ~2020-03-25 | XMS | Encounter Summary ---
Demographics + + + | Address | [address] | | | [place] [address] | + + + | Home Phone [...] Organization | [facility] | | | and [...] Team Providers + +------+ + | Care Shake Cutter Name | Role | Phone | [...] | | | | [place], [place] | [place], [place] | | | | | | [address] | [address] | | | | | | Phone: | Phone: | | | | | | [phone] | [phone] | | | | | | Fax: | Fax: | | | | | | [phone] | [phone] | +--------+ + + + + + [...] [place], | | | | | [place], [place] | [place] [address] | | | | | [address] | [phone] | | | | | [phone] | | | +--------+ + + + [...]
--- OUTSIDE RECORDS SUMMARY | ~2020-03-25 | XMS | Encounter Summary ---
Demographics + + + | Address | [address] | | | [place] [address] | + + + | Home Phone | | + + + | Preferred Language | Unknown | + + + | Marital Status | Single | + + + | Nondenominational Affiliation | 1013 | + + + | Race | Unknown | + + + | Ethnic Group | Unknown | + + + Author + + + | Author | [facility] | | | and Ernesto[place] | + + + | Organization | [facility] | | | and Ernestoana [...] Team Providers + +------+ + | Care Drywall Finishing Foreman Name | Role | Phone | + +------+ + | Kelly Alfonso | PCP | | | PA | | | + +------+ + Encounter Details +--------+ + + + + | Date | Type | Department | Care Team | Description | +--------+ + + + + | 01/08/ | Orders Only | [facility] | Conversion | | | 2016 | | NEPHROLOGY [place]BI[place] | Transaction, | | | | | [address] | Provider Unknown | | | | | [address] [place] | [phone] | | | | | [address] | | | | | | [phone] | | | +--------+ + + + [...] - 1.030 | EXTERNAL | | | [place], | | | LAB | | | [...]
--- OUTSIDE RECORDS SUMMARY | ~2020-03-25 | XMS | Encounter Summary ---
Demographics + + + | Address | [address] | | | [place] [address] | + + + | Home Phone | | + + + | Preferred Language | Unknown | + + + | Marital Status | Single | + + + | Alevism Affiliation | 1013 | + + + | Race | Unknown | + + + | Ethnic Group | Unknown | + + + Author + + + | Author | [facility] | | | and Ernesto[place] | + + + | Organization | [facility] | [...] Team Providers + +------+ + | Care Crossing Gateman Name | Role | Phone | + [...] | | | 2017 | | NEPRHOLOGY [place] | LABORER ELECTROPLATING [address] | | | | | [address] | [address] | | | | | [address] [place], [place] | [place], [place] | | | | | [address] | [address] | | | | | [phone] | [phone] | | | | | | | [...] | | | LAB | | | [facility] | | | | | + +-------+ [...]
--- OUTSIDE RECORDS SUMMARY | ~2020-03-25 | XMS | Encounter Summary ---
Demographics + + + | Address | [address] | | | [place] [address] | + + + | Home Phone [...] Providers + +------+ + | Care Operations Forester Name | Role | Phone | + +------+ + | Kelly Alfonso | PCP | | | [place] | | | + +------+ + Encounter Details +--------+ + + + + | Date | Type | Department | Care Team | Description | +--------+ + + + + | 10/07/ | Orders Only | [facility] | Conversion | | | 2016 | | NEPRHOLOGY NIMESH | Transaction, | | | | | [address] | Provider Unknown | | | | | [address] [facility] [facility] [facility] [place] | [phone] | | | | | [address] | | | | | | [phone] | | | +--------+ + + + [...]
--- OUTSIDE RECORDS SUMMARY | ~2020-03-25 | XMS | Encounter Summary ---
Demographics + + + | Address | [address] | | | [place] [address] | + + + | Home Phone | | + + + | Preferred Language | Unknown | + + + | Marital Status | Single | + + + | Mormonism Affiliation | 1013 | + + + | Race | Unknown | + + + | Ethnic Group | Unknown | + + + Author + + + | Author | [facility] | | | and Ernestoana | + + + | Organization | [facility] | | [...] Team Providers + +------+ + | Care Dairy Helper Name | Role | Phone | [...] [place], | | | | | [place], [place] | [place] [address] | | | | | [address] | [phone] | | | | | [phone] | | | +--------+--------+ + + + [...]
--- OUTSIDE RECORDS SUMMARY | ~2020-03-25 | XMS | Encounter Summary ---
Demographics + + + | Address | [address] | | | [place] [address] | + + + | Home Phone [...] | Organization | [facility] | [...] Team Providers + +------+ + | Care Manager Electrical Name | Role | Phone | + [...] [place], | | | | | [place], [place] | [place] [address] | | | | | [address] | [phone] | | | | | [phone] | | | +--------+ + + + [...]
--- OUTSIDE RECORDS SUMMARY | ~2020-03-25 | XMS | Encounter Summary ---
Demographics + + + | Address | [address] | | | [place] [address] | + + + | Home Phone [...] | Organization | [facility] | | [...] Team Providers + +------+ + | Care Knockdown Worker Name | Role | Phone | [...] [place], | | | | | [place], [place] | [place] [address] | | | | | [address] | [phone] | | | | | [phone] | | | +--------+--------+ + + + [...]
--- OUTSIDE RECORDS SUMMARY | ~2020-03-25 | XMS | Encounter Summary ---
Demographics + + + | Address | [address] | | | [place] [address] | + + + | Home Phone [...] + + + | Author | [facility] | | | and Ernestoana | + + + | Organization | [facility] [...] Team Providers + +------+ + | Care Test Preparer Name | Role | Phone | + [...] [place], | | | | | [place], [place] | [place] [address] | | | | | [address] | [phone] | | | | | [phone] | | | +--------+ + + + [...]
--- OUTSIDE RECORDS SUMMARY | ~2020-03-25 | XMS | Encounter Summary ---
Demographics + + + | Address | [address] | | | [place] [address] | + + + | Home Phone | | + + + | Preferred Language | Unknown | + + + | Marital Status | Single | + + + | Gnosticism Affiliation | 1013 | + + + | Race | Unknown | + + + | Ethnic Group | Unknown | + + + Author + + + | Author | [facility] | | | and Ernestoana | + + + | Organization | [facility] | [...] Team Providers + +------+ + | Care French Drawer Name | Role | Phone | [...] | | | | Procedures | | [place] [address] | | | | | OFFICE | | Phone: | | | | | VISIT | | [phone] | | | | | REGULAR | | Fax: | | | | | | | [phone] | +--------+--------+ + + + + Encounter Details +--------+---------+ + + + | Date | Type | Department | Care Team | Description | +--------+---------+ + + + | 11/25/ | Office | [facility] | Charles Rivas MD | Dysphonia (Primary | | 2015 | Visit | OTOLARYNGOLOGY [address] | [address] | Dx) | | | | [address] | [address] [place], | | | | | [place], [place] | [place] [address] | | | | | [address] | [phone] | | | | | [phone] | | | +--------+---------+ + + + [...] MD - 11/25/2014 12:11 PM PST [facility] OTOLARY[facility]OLOGY [address] [facility] [address] OFFICE NOTE CHARLES RIVAS MD Patient: YAMILA YEAGER Admitting: MR #: [id number] LOC: PT TYPE: Adm Date: 11/25/2014 : [...] 12:11:46 Transcribed on 11/25/2014 12:30:21 by job# [id number] Confirmation #: [id number] cc: BINDU CALLE DO [facility], Charles Alvarez MD - 11/25/2014 12:08 PM PSTSee dictation # [id number] signed by Charles Rivas MD at 11/25/2014 12:12 PM PSTdocumented in th is encounter Plan of Treatment Not on filedocumented as of this encounter Visit Diagnoses + + | Diagnosis | + + | Dysphonia - Primary | + + documented in this encounter
[~2020-03-25 08:33] MED LIST changes: +HYDROCHLOROTHIA25 MG PO; +LEXAPRO10 MG PO; +TRAZODONE HCL50 MG PO; +TYLENOL EXTRA500 MG PO; +ULTRAM50 MG PO; +XARELTO20 MG PO
--- OUTSIDE RECORDS SUMMARY | 2020-03-25 08:36 | XMS ---
PreManage Notification: OMEGA SHEETS Security Overage Shortage And Damage Clerk Events No recent Security Events currently on file CRITERIA MET - PDMP CARE PROVIDERS DUGLAS CAMPOS Physician Yarn Sorter 05/31/2019-Current PHONE: Unknown Gilmer has no Care Guidelines for this patient. EJinny VISIT COUNT (12 MO.) 2 [facility] TOTAL 2 NOTE: Visits indicate total known visits. ED/UCC VISIT TRACKING (12 MO.) 03/25/2020 08:34 [facility] TYPE: Emergency COMPLAINT: - BLOODY NOSE 05/30/2019 15:21 [facility] TYPE: Emergency COMPLAINT: - URINE PROBLEM DIAGNOSES: - Dysuria - Personal history of nicotine dependence - Cystitis, unspecified without hematuria - Essential (primary) hypertension - Acquired absence of other specified parts of digestive tract - Other nursing home (current) drug therapy INPATIENT VISIT TRACKING (12 MO.) 01/25/2020 05:40 [facility] TYPE: Medical Surgical COMPLAINT: - RIGHT KNEE ARTHROPLASTY DIAGNOSES: - Other reduced mobility - Morbid (severe) obesity due to excess calories - custodial (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 - Personal history of nicotine dependence - Other acute postprocedural pain - 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 operator (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 - Anxiety disorder, unspecified - Unilateral primary osteoarthritis, right knee - Personal history of pulmonary embolism - Other acute postprocedural pain - Personal history of nicotine dependence - Personal history of other venous thrombosis and embolism - Essential (primary) hypertension - Morbid (severe) obesity due to excess calories - Chronic pain syndrome - Other nursing home (current) drug therapy - Body mass index (BMI) 40.0-44.9, adult - Essential (primary) hypertension - Personal history of pulmonary embolism - Other ferry 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
[2020-03-28] MEDS ORDERED: COUMADIN5 MG PO (08:10)
== END 2020-03-25 10:26 | disposition home or self-care (01) ==
LOC: ED 08:33
DX: T45.511A Poisoning by anticoagulants, accidental (unintentional), initial encounter (principal); R04.0 Epistaxis; D68.32 Hemorrhagic disorder due to extrinsic circulating anticoagulants; T45.515A Adverse effect of anticoagulants, initial encounter; I10 Essential (primary) hypertension; Z87.891 Personal history of nicotine dependence; Z79.899 Other long term (current) drug therapy
CPT/HCPCS: 30901; 85025; 85610; 99283-25

== ENCOUNTER 2020-03-25 20:19 | Emergency (ER) | payer OTHER ==
[~2020-03-25] VITALS: Ht 170.2 cm; Wt 113.4 kg
--- OUTSIDE RECORDS SUMMARY | ~2020-03-25 | XMS | Encounter Summary ---
Demographics + + + | Address | [address] | | | [place] [address] | + + + | Home Phone | | + + + | Preferred Language | Unknown | + + + | Marital Status | Single | + + + | Anglican Affiliation | 1013 | + + + | Race | Unknown | + + + | Ethnic Group | Unknown | + + + Author + + + | Author | [facility] | | | and Ernestoana | + + + | Organization | [facility] | | | and [place]esto[place] | + + + | Address | Unknown | + + + | Phone | Unavailable | + + + Support + + +---------+ + | Name | Relationship | Address | Phone | + + +---------+ + | Mandie Singh | ECON | Unknown | | + + +---------+ + Care Team Providers + +------+ + | Care Emergency Management Specialist Name | Role | Phone | + +------+ + | Kelly Alfonso | PCP | | | PA | | | + +------+ + Reason for Visit + + + | Reason | Comments | + + + | Medication Question | | + + + Encounter Details +--------+ + + + + | Date | Type | Department | Care Team | Description | +--------+ + + + + | 03/22/ | Telephone | [facility] [place] | Eugenio Herrera, | Medication Question | | 2018 | | PHYSIATRY [address] | PA-C [address] | | | | | [address] | [address] [place] | | | | | [place], [place] | [place] [address] | | | | | [address] | [phone] | | | | | [phone] | | | +--------+ + + + + Social History + + + +--------+------+ | Tobacco Use | Types | Packs/Day | Years | Date | | | | | Used | | + + + +--------+------+ | Current Every Day | Cigarettes | | 15 | | | Smoker | | | | | + + + +--------+------+ + +---+---+---+ | Smokeless Tobacco: | | | | | Never Used | | | | + +---+---+---+ + + +---------+ + | Alcohol Use | Drinks/Week | oz/Week | Comments | + + +---------+ + | Yes | 28 Cans of beer | 42.0 | | | | 14 Shots of liquor | | | + + +---------+ + + + + | Sex Assigned at | Date Recorded | | | | + + + | Not on file | | + + + + + + + | Job Start Date | Occupation | Industry | + + + + | Not on file | Not on file | Not on file | + + + + + + + + | Travel History | Travel Start | Travel End | + + + + + + | No recent travel history available. | + + documented as of this encounter Plan of Treatment Not on filedocumented as of this encounter Visit Diagnoses Not on filedocumented in this encounter"
--- OUTSIDE RECORDS SUMMARY | ~2020-03-25 | XMS | Encounter Summary ---
Demographics + + + | Address | [address] | | | [place] [address] | + + + | Home Phone | | + + + | Preferred Language | Unknown | + + + | Marital Status | Single | + + + | Yarsani Affiliation | 1013 | + + + | Race | Unknown | + + + | Ethnic Group | Unknown | + + + Author + + + | Author | [facility] | | | and [place] | + + + | Organization | [facility] | | | and [place] [...] Team Providers + +------+ + | Care Poultry Farmer Egg Name | Role | Phone | + [...] + + | Closed | Specialty | Otolaryngolog | Diagnoses | [place], | Charles Lino | | | Services | y | Other | MD Maddy Sin MD [address] | | | Required | | diseases of | [address] | | | | | vocal cords | [address] | [address] | | | | | Dysphonia | [place], | | | | | Procedures | [place] | [place] [address] | | | | | [place] | [address] | Phone: | | | | | LARYNGOSCOPY | Phone: | [phone] | | | | | ,DIRCT,OP | [phone] | Fax: | | | | | SCOP,EXC | Fax: | [phone] | | | | | TUMR | [phone] | | +--------+ + + + + + Encounter Details +--------+ + + + + | Date | Type | Department | Care Team | Description | +--------+ + + + + | 06/14/ | Orders Only | [facility] | Charles Lino MD | Other diseases of | | 2013 | | OTOLARYNGOLOGY [address] | [address] | vocal cords (Primary | | | | [address] | [address] [place], | Dx); Dysphonia | | | | [place] | [place] [address] | | | | | [address] | [phone] | | | | | [phone] | | | +--------+ + + + + Social History + +-------+ +--------+------+ | Tobacco Use | Types | Packs/Day | Years | Date | | | | | Used | | + +-------+ +--------+------+ | Former Smoker | | | | | + +-------+ +--------+------+ + + +---------+ + | Alcohol Use | Drinks/Week | oz/Week | Comments | + + +---------+ + | Not Asked | | | | + + +---------+ + [...] Ambulatory referral | Outpatient | Routin | Other diseases of | Expected: | | to ENT | Referral | e | vocal cords | 06/14/2014, Expires: | | | | | Dysphonia | 06/14/2015 | + + +--------+ + + documented as of this encounter Visit Diagnoses + + | Diagnosis | + + | Other diseases of vocal cords - Primary | + + | Dysphonia | + + documented in this encounter"
--- OUTSIDE RECORDS SUMMARY | ~2020-03-25 | XMS | Encounter Summary ---
Demographics + + + | Address | [address] | | | [place] [address] | + + + | Home Phone | | + + + | Preferred Language | Unknown | + + + | Marital Status | Single | + + + | Worship Affiliation | 1013 | + + + | Race | Unknown | + + + | Ethnic Group | Unknown | + + + Author + + + | Author | [facility] | | | and [place] | + + + | Organization | [facility] | | | and [place] [...] Team Providers + +------+ + | Care Braze Operator Name | Role | Phone | + +------+ + | Noe Regan DO | PCP | | + +------+ + Encounter Details +--------+ + + + + | Date | Type | Department | Care Team | Description | +--------+ + + + + | 01/06/ | Imaging | [facility] | Provider, | | | 2019 | Exam | [facility] | [address] | | | | | [address]ING [address] | [address] | | | | | [place] | [place] [address] | | | | | [place] [address] | | | | | | [phone] | | | +--------+ + + + + Social History + +-------+ +--------+------+ | Tobacco Use | Types | Packs/Day | Years | Date | | | | | Used | | + +-------+ +--------+------+ | Never Assessed | | | | | + +-------+ +--------+------+ + + + | Sex Assigned at [...] Not on filedocumented as of this encounter Procedures + +--------+ + + + | Procedure Name | Priori | Date/Time | Associated Diagnosis | Comments | | | ty | | | | + +--------+ + + + | MRI KNEE RIGHT WO | Routin | 07/23/2012 | | Results for this | | CONTRAST | e | 1:20 PM | | procedure are in the | | | | PDT | | results section. | + +--------+ + + + documented in this encounter Results MRI Knee Right wo Contrast (07/23/2012 1:20 PM PDT) + + | Specimen | + + | | + + + + + | Narrative | Performed At | + + + | External films for comparison only | [facility] | | | | | No results will be in the chart. | | + + + + +---------+ + + | Performing | Address | City/State/Zipcode | Phone Number | | Organization | | | | + +---------+ + + | [facility] | | | | + +---------+ + + documented in this encounter Visit Diagnoses Not on filedocumented in this encounter"
--- OUTSIDE RECORDS SUMMARY | ~2020-03-25 | XMS | Encounter Summary ---
Demographics + + + | Address | [address] | | | [place] [address] | + + + | Home Phone | | + + + | Preferred Language | Unknown | + + + | Marital Status | Single | + + + | Restorationist Affiliation | 1013 | + + + | Race | Unknown | + + + | Ethnic Group | Unknown | + + + Author + + + | Author | [facility] | | | and [place] | + + + | Organization | [facility] | | | and [...] Team Providers + +------+ + | Care Corporate Real Estate Manager Name | Role | Phone | + +------+ + | Kelly Alfnoso | PCP | | | PA | | | + +------+ + Encounter Details +--------+ + + + + | Date | Type | Department | Care Team | Description | +--------+ + + + + | 03/05/ | Abstract | [facility] | Provider, | | | 2019 | | PHYSIATRY [address] | [address] | | | | | [address] | [address] | | | | | [place] | [place] [address] | | | | | [address] | | | | | | [phone] | | | +--------+ + + + [...]
--- OUTSIDE RECORDS SUMMARY | ~2020-03-25 | XMS | Encounter Summary ---
Demographics + + + | Address | [address] | | | [place] [address] | + + + | Home Phone | | + + + | Preferred Language | Unknown | + + + | Marital Status | Single | + + + | Islam Affiliation | 1013 | + + + | Race | Unknown | + + + | Ethnic Group | Unknown | + + + Author + + + | Author | [facility] | | | and [place] | + + + | Organization | [facility] | | | and [place] [...] Team Providers + +------+ + | Care Timber Robber Name | Role | Phone | + +------+ + | Noe Regan DO | PCP | | + +------+ + Encounter Details +--------+ + + + + | Date | Type | Department | Care Team | Description | +--------+ + + + + | 10/13/ | Hospital | [facility] | Conversion | Pain | | 2018 | Encounter | CONVERSION [address] | Transaction, | | | | | [address] | Provider Unknown | | | | | [place] | [phone] | | | | | [address] | | | | | | [phone] | | | +--------+ + + + [...] + + documented as of this encounter Medications at Time of Discharge + + + +---------+ + + | Medication | Sig | Dispensed | Refills | Start | End Date | | | | | | Date | | + + + +---------+ + + | spironolactone | Take 100 mg by mouth | | 0 | 05/15/20 | | | (ALDACTONE) 100 MG | Daily. | | | 18 | | | tablet | | | | | | + + + +---------+ + + | warfarin | Take 5 mg by mouth | | 0 | | | | (COUMADIN) 5 mg | Daily. | | | | | | tablet | | | | | | + + + +---------+ + + | | Take 1 tablet by | 30 | 0 | 01/27/20 | | | acetaminophen-codein | mouth every 4 hours | tablet | | 15 | 9 | | e (TYLENOL #3) | as needed for Pain. | | | | | | 300-30 mg per tablet | | | | | | + + + +---------+ + + | ALPRAZolam (XANAX) | Take one-half tablet | 90 | 2 | 11/30/19 | | | 0.25 mg tablet | by mouth every | tablet | | 15 | 9 | | | morning and midday; | | | | | | | take one tablet by | | | | | | | mouth every day at | | | | | | | bedtime. | | | | | + + + +---------+ + + | Celecoxib | Take 10 mg by mouth | | 0 | | | | (CELEBREX PO) | Daily. | | | | 9 | + + + +---------+ + + | cetirizine | Take 10 mg by mouth | | 0 | | | | (ZYRTEC) 10 mg | Daily. | | | | 9 | | tablet | | | | | | + + + +---------+ + + | cyclobenzaprine | Take 10 mg by mouth | | 0 | | | | (FLEXERIL) 10 mg | 3 times daily as | | | | 9 | | tablet | needed. | | | | | + + + +---------+ + + | enoxaparin | Inject 10 mg under | | 0 | | | | (LOVENOX) 100 mg/mL | the skin every 12 | | | | 9 | | injection | hours. Using for 5 | | | | | | | days prior to | | | | | | | surgery. | | | | | + + + +---------+ + + | | Take 1 tablet by | | 0 | | | | lisinopril-hydrochlo | mouth Daily. | | | | 9 | | rothiazide | | | | | | | (PRINZIDE,ZESTORETIC | | | | | | | ) 10-12.5 MG per | | | | | | | tablet | | | | | | + + + +---------+ + + | methocarbamol | Take 750 mg by mouth | | 0 | | | | (ROBAXIN) 750 mg | 2 times daily. | | | | 9 | | tablet | | | | | | + + + +---------+ + + | omeprazole | Take 20 mg by mouth | | 0 | | | | (PRILOSEC) 20 mg | every morning | | | | 9 | | capsule | (before breakfast). | | | | | + + + +---------+ + + | warfarin | Take 10 mg by mouth | | 0 | | 04/29/201 | | (COUMADIN) 10 mg | Daily. | | | | 9 | | tablet | | | | | | + + + +---------+ + + documented as of this encounter Plan of Treatment Not on filedocumented as of this encounter Procedures + +--------+ + + + | Procedure Name | Priori | Date/Time | Associated Diagnosis | Comments | | | ty | | | | + +--------+ + + + | MRI LUMBAR SPINE WO | Routin | 10/02/2018 | | Results for this | | CONTRAST | e | 2:44 AM | | procedure are in the | | | | PST | | results section. | + +--------+ + + + documented in this encounter Results MRI Lumbar Spine wo Contrast (10/02/2018 2:44 AM PST) + + | Specimen | + + | | + + + + + | Narrative | Performed At | + + + | This is a non-reportable procedure without a radiologist report and | | | is used for image storage only | | + + + + + | Procedure Note | + + | Ángel Dias - 06/30/2019 1:54 PM PDT This is a non-reportable procedure | | without a radiologist report and isused for image storage only | + + documented in this encounter Visit Diagnoses + + | Diagnosis | + + | Pain Generalized pain | + + documented in this encounter"
--- OUTSIDE RECORDS SUMMARY | ~2020-03-25 | XMS | Encounter Summary ---
Demographics + + + | Address | [address] | | | [place] [address] | + + + | Home Phone | | + + + | Preferred Language | Unknown | + + + | Marital Status | Single | + + + | Anabaptism Affiliation | 1013 | + + + | Race | Unknown | + + + | Ethnic Group | Unknown | + + + Author + + + | Author | [facility] | | | and [place] | + + + | Organization | [facility] | | | and [place]esto[place] [...] Team Providers + +------+ + | Care Regulatory Analyst Name | Role | Phone | + +------+ + | Kelly Alfonso | PCP | | | PA | | | + +------+ + Encounter Details +--------+ + + + + | Date | Type | Department | Care Team | Description | +--------+ + + + + | 12/16/ | Orders Only | [facility] | Conversion | | | 2017 | | NEPHROLOGY [place] | Transaction, | | | | | [address] | Provider Unknown | | | | | [address] [place] | [phone] | | | | | [address] | | | | | | [phone] | | | +--------+ + + + [...] | EXTERNAL LAB: CBC | Routin | 12/16/2017 | | Results for this | | | e | 12:05 PM | | procedure are in the | | | | PST | | results section. | + +--------+ + + + | URINALYSIS, | Routin | 12/16/2017 | | Results for this | | MICROSCOPIC ONLY | e | 12:05 PM | | procedure are in the | | | | PST | | results section. | + +--------+ + + + | PROTEIN/CREATININE | Routin | 12/16/2017 | | Results for this | | RATIO, URINE | e | 12:05 PM | | procedure are in the | | | | PST | | results section. | + +--------+ + + + | URIC ACID | Routin | 12/16/2017 | | Results for this | | | e | 12:05 PM | | procedure are in the | | | | PST | | results section. | + +--------+ + + + | MAGNESIUM | Routin | 12/16/2017 | | Results for this | | | e | 12:05 PM | | procedure are in the | | | | PST | | results section. | + +--------+ + + + | RENAL FUNCTION PANEL | Routin | 12/16/2017 | | Results for this | | | e | 12:05 PM | | procedure are in the | | | | PST | | results section. | + +--------+ + + + documented in this encounter Results Protein/Creatinine Ratio, Urine (12/16/2017 12:05 PM PST) + + + + + + | [...] | | | + +---------+ + + Urinalysis, Microscopic Only (12/16/2017 12:05 PM PST) + + + + + + | Component | Value | Ref Range | Performed | Pathologist | | | | | At | Signature | + + + + + + | Color | Yellow | | EXTERNAL | | | | | | LAB | | + + + + + + | Clarity | Clear | | EXTERNAL | | | | | | LAB | | + + + + + + | Specific | 1.015 | 1.005 - 1.030 | EXTERNAL | | | [place], | | | LAB | | | [...] + + + + + + | Protein, | Negative | | EXTERNAL | | | Urine | | | LAB | | + + + + + + | pH, Urine | 8 | 5 - 9 | EXTERNAL | | | | | | LAB | | + + + + + + | Blood, | Comment: 10 | | EXTERNAL | | | Urine | | | LAB | | + + + + + + | Ketones | Negative | | EXTERNAL | | | | [...] Performed At | + + + | Bacteria: 1+ | EXTERNAL LAB | + + + + +---------+ + + | Performing | Address | City/State/Zipcode | Phone Number | | Organization | | | | + +---------+ + + | EXTERNAL LAB | | | | + +---------+ + + External Lab: [facility] (12/16/2017 12:05 PM PST) + + + + + + | Component | Value | Ref Range | Performed | Pathologist | | | | | At | Signature | + + + + + + | WBC | 5.8 | 4.5 - 11.0 10 | EXTERNAL | | | | | | LAB | | + + + + + + | Red Blood | 4.63 | 3.8 - 5.1 10 | EXTERNAL | | | Cells | | | LAB | | | Counted | | | | | + + + + + + | Hemoglobin | 13.6 | 12 - 16 g/dL | EXTERNAL | | | | | | LAB | | + + + + + + | Hematocrit, | 40.8 | 35 - 45 % | EXTERNAL | | | POC | | | LAB | | + + + + + + | MCV | 88.2 | 81 - 99 fL | EXTERNAL | | | | | | LAB | | + + + + + + | MCH | 29 | 27 - 33 pg | EXTERNAL | | | | | | LAB | | + + + + + + | MCHC | 33 | 30 - 36 g/dL | EXTERNAL | | | | | | LAB | | + + + + + + | Platelet | 325 | 140 - 440 K/ L | [...] + + + | % Segmented | | % | EXTERNAL | | | | | | LAB | | | Neutrophils | | | | | + + + + + + | % | | % | EXTERNAL | | | Lymphocytes | | | LAB | | + + + + + + | % Monocytes | | % | EXTERNAL | | | | | | LAB | | + + + + + + | % | | % | EXTERNAL | | | Eosinophils | | | LAB | | + + + + + + | % Basophils | | % | EXTERNAL | | | | [...] | + +---------+ + + Uric Acid (12/16/2017 12:05 PM PST) + +-------+ + + + | Component [...] | | + +---------+ + + Magnesium (12/16/2017 12:05 PM PST) + +-------+ + + + | Component | Value | Ref Range | Performed | Pathologist | | | | | At | Signature | + +-------+ + + + | Magnesium | 1.7 | 1.7 - 2.5 mg/dL | EXTERNAL [...] + +---------+ + + Renal Function Panel (12/16/2017 12:05 PM PST) + +---------+ + + + | Component | Value | Ref Range | Performed | Pathologist | | | | | At | Signature | + +---------+ + + + | Glucose, | 117 (A) | 70 - 100 mg/dL | EXTERNAL | | | Fasting | | | LAB | | + +---------+ + + + | BUN | 18 | 6 - 23 mg/dL | EXTERNAL | | | | | | LAB | | + +---------+ + + + | Creatinine | 0.69 | 0.6 - 1.35 | EXTERNAL | | | | | mg/dL | LAB | | + +---------+ + + + | PHOSPHORUS | | mg/dL | EXTERNAL | | | | | | LAB | | + +---------+ + + + | Albumin | 4.0 | 3.5 - 5.0 | EXTERNAL | | | | | | LAB | | + +---------+ + + + | Na | 135 | 132 - 143 | EXTERNAL | | | | | mmol/L | LAB | | + +---------+ + + + | K | 4.1 | 3.6 - 5.1 | EXTERNAL | | | | | mmol/L | LAB | | + +---------+ + + + | Cl | 99 | 95 - 112 mmol/L | EXTERNAL | | | | | | LAB | | + +---------+ + + + | CO2 | 24 | 19 - 31 mmol/L | EXTERNAL | | | | | | LAB | | + +---------+ + + + | Anion Gap | 16.1 | 7 - 21 mmol/L | EXTERNAL | | | | | | LAB | | + +---------+ + + + | eGFR if not | | | EXTERNAL | | | | | | LAB | | | TUNISIAN | | | | | + +---------+ + + + | Phosphorus, | 2.6 | 2.5 - 5.0 | EXTERNAL | | | Inorganic | | | LAB | | + +---------+ + + + | BUN/Creatin | 26.1 | 6.0 - 28.6 | EXTERNAL | | | ine Ratio | | | LAB | | + +---------+ + + + | Calcium | 9.4 | 8.4 - 10.2 | EXTERNAL | | | | | mg/dL | LAB | | + +---------+ + + + | Estimated | 91 | mg/dL | EXTERNAL | | | GFR | | | LAB | | + +---------+ + + + + + | Specimen [...]
--- OUTSIDE RECORDS SUMMARY | ~2020-03-25 | XMS | Encounter Summary ---
Demographics + + + | Address | [address] | | | [place] [address] | + + + | Home Phone | | + + + | Preferred Language | Unknown | + + + | Marital Status | Single | + + + | Temple Affiliation | 1013 | + + + | Race | Unknown | + + + | Ethnic Group | Unknown | + + + Author + + + | Author | [facility] | | | and [place] | + + + | Organization | [facility] | | | and [...] Team Providers + +------+ + | Care Electric Mule Driver Name | Role | Phone | + +------+ + | Kelly Alfonso | PCP | | | PA | | | + +------+ + Encounter Details +--------+ + + + + | Date | Type | Department | Care Team | Description | +--------+ + + + + | 09/24/ | Orders Only | [facility] | Conversion | | | 2017 | | NEPRHOLOGY [place] | Transaction, | | | | | [address] | Provider Unknown | | | | | [address] [facility] [place] | [phone] | | | | | [address] | | | | | | [phone] | | | +--------+ + + + [...] | + +--------+ + + + | COMPREHENSIVE | Routin | 09/24/2017 | | Results for this | | METABOLIC PANEL | e | 12:00 AM | | procedure are in the | | | | PST | | results section. | + +--------+ + + + documented in this encounter Results Comprehensive Metabolic Panel (09/24/2017 12:00 AM PST) + +-------+ + + + | Component | Value | Ref Range | Performed | Pathologist | | | | | At | Signature | + +-------+ + + + | Glucose, | 99 | 70 - 100 mg/dL | EXTERNAL | | | Fasting | | | LAB | | + +-------+ + + + | BUN | 14 | 6 - 23 mg/dL | EXTERNAL | | | | | | LAB | | + +-------+ + + + | Creatinine | 0.66 | 0.60 - 1.35 | EXTERNAL | | | | | mg/dL | LAB | | + +-------+ + + + | BUN/Creatin | 21.2 | 6.0 - 28.6 | EXTERNAL | | | ine Ratio | | | LAB | | + +-------+ + + + | Calcium | 9.8 | 8.4 - 10.2 | EXTERNAL | | | | | mg/dL | LAB | | + +-------+ + + + | Protein, | 7.2 | 6.0 - 8.0 g/dL | EXTERNAL | | | Total | | | LAB | | + +-------+ + + + | Albumin | 4.2 | 3.5 - 5.0 | EXTERNAL | | | | | | LAB | | + +-------+ + + + | Globulin | 3.0 | 1.8 - 3.5 | EXTERNAL | | | | | | LAB | | + +-------+ + + + | A/G Ratio | 1.4 | 1.1 - 2.4 | EXTERNAL | | | | | | LAB | | + +-------+ + + + | Bilirubin | 0.4 | 0.0 - 1.2 mg/dL | EXTERNAL | | | Total | | | LAB | | + +-------+ + + + | ALP, | 107 | 31 - 130 | EXTERNAL | | | External | | | LAB | | + +-------+ + + + | ALT | 27 | 7 - 52 U/L | EXTERNAL | | | | | | LAB | | + +-------+ + + + | AST | 22 | 13 - 39 U/L | EXTERNAL | | | | | | LAB | | + +-------+ + + + | Na | 138 | 132 - 143 | EXTERNAL | | | | | mmol/L | LAB | | + +-------+ + + + | K | 4.2 | 3.6 - 5.1 | EXTERNAL | | | | | mmol/L | LAB | | + +-------+ + + + | Cl | 102 | 95 - 112 mmol/L | EXTERNAL | | | | | | LAB | | + +-------+ + + + | CO2 | 21 | 19 - 31 mmol/L | EXTERNAL | | | | | | LAB | | + +-------+ + + + | Anion Gap | 19.2 | 7 - 21 mmol/L | EXTERNAL | | | | | | LAB | | + +-------+ + + + | Estimated | 96 | mg/dL | EXTERNAL | | | [...]
--- OUTSIDE RECORDS SUMMARY | ~2020-03-25 | XMS | Encounter Summary ---
Demographics + + + | Address | [address] | | | [place] [address] | + + + | Home Phone | | + + + | Preferred Language | Unknown | + + + | Marital Status | Single | + + + | Moravian Affiliation | 1013 | + + + | Race | Unknown | + + + | Ethnic Group | Unknown | + + + Author + + + | Author | [facility] | | | and [place] | + + + | Organization | [facility] | | | and [place] | + [...] Team Providers + +------+ + | Care Plant And Maintenance Technician Name | Role | Phone | + +------+ + | Noe Regan DO | PCP | | + +------+ + Reason for Visit + + + | Reason | Comments | + + + | Medication Refill | | + + + Encounter Details +--------+--------+ + + + | Date | Type | Department | Care Team | Description | +--------+--------+ + + + | 02/06/ | Refill | [facility] [place] | Charles Lino MD | Medication Refill | | 2015 | | OTOLARYNGOLOGY [address] | [address] | | | | | [address] | [address], | | | | | [place], [place] | [place] [address] | | | | | [address] | [phone] | | | | | [phone] | | | +--------+--------+ + + + Social History + + [...]
--- OUTSIDE RECORDS SUMMARY | ~2020-03-25 | XMS | Encounter Summary ---
Demographics + + + | Address | [address] | | | [place] [address] | + + + | Home Phone [...] + + + | Author | [facility] | | | and [place] | + + + | Organization | [facility] | | | and Ernesto[place] [...] Team Providers + +------+ + | Care Police Pilot Name | Role | Phone | + +------+ + | Noe Regan DO | PCP | | + +------+ + Reason for Visit + + + | Reason | Comments | + + + | Neck Pain | throat, post op | + + + Encounter Details +--------+ + + + + | Date | Type | Department | Care Team | Description | +--------+ + + + + | 07/13/ | Telephone | [facility] [place] | Charles Lino MD | Neck Pain (throat, | | 2013 | | [address]OLARYNGOLOGY [address] | [address] | post op) | | | | [address] | [address], | | | | | [place], [place] | [place] [address] | | | | | [address] | [phone] | | | | | [phone] | | | +--------+ + + + [...]
--- OUTSIDE RECORDS SUMMARY | ~2020-03-25 | XMS | Encounter Summary ---
Demographics + + + | Address | [address] | | | [place] [address] | + + + | Home Phone | | + + + | Preferred Language | Unknown | + + + | Marital Status | Single | + + + | Adventism Affiliation | 1013 | + + + | Race | Unknown | + + + | Ethnic Group | Unknown | + + + Author + + + | Author | [facility] | | | and [place] | + + + | Organization | [facility] | | | and [place] | [...] Team Providers + +------+ + | Care Systematic Theology Professor Name | Role | Phone | + +------+ + | Kelly Alfonso | PCP | | | PA | | | + +------+ + Encounter Details +--------+ + + + + | Date | Type | Department | Care Team | Description | +--------+ + + + + | 10/27/ | Orders Only | [facility] | Bernard Doe, | | | 2017 | | NEPRHOLOGY [place] | [address] | | | | | [address] | [address] | | | | | [address] [place], [place] | [place], [place] | | | | | [address] | [address] | | | | | [phone] | [phone] | | | | | | | [...] | EXTERNAL LAB: CBC | Routin | 10/27/2018 | | Results for this | | | e | 12:00 AM | | procedure are in the | | | | PST | | results section. | + +--------+ + + + | PROTEIN/CREATININE | Routin | 10/27/2018 | | Results for this | | RATIO, URINE | e | 12:00 AM | | procedure are in the | | | | PST | | results section. | + +--------+ + + + | URIC ACID | Routin | 10/27/2018 | | Results for this | | | e | 12:00 AM | | procedure are in the | | | | PST | | results section. | + +--------+ + + + | MAGNESIUM | Routin | 10/27/2018 | | Results for this | | | e | 12:00 AM | | procedure are in the | | | | PST | | results section. | + +--------+ + + + documented in this encounter Results Protein/Creatinine Ratio, Urine (10/27/2018 12:00 AM PST) + + + + + + | Component | Value | Ref Range | Performed | Pathologist | | | | | At | Signature | + + + + + + | Protein/Cre | 460.5 (A) | 0 - 150 | EXTERNAL | | | at Ratio | | | LAB | | + + + + + + + + | Specimen | + + | Urine specimen | | (specimen) | + + + + + | Narrative | Performed At | + + + | PROTEIN, URINE - 35 - 0.0 - 6.6 CREATININE, URINE - 76 | EXTERNAL LAB | + + + + +---------+ + + | Performing | Address | City/State/Zipcode | Phone Number | | Organization | | | | + +---------+ + + | EXTERNAL LAB | | | | + +---------+ + + External Lab: CBC (10/27/2018 12:00 AM PST) + + + + + + | Component | Value | Ref Range | Performed | Pathologist | | | | | At | Signature | + + + + + + | WBC | 6.0 | 4.5 - 11.0 10 | EXTERNAL | | | | | | LAB | | + + + + + + | Red Blood | 4.25 | 3.8 - 5.1 10 | EXTERNAL | | | Cells | | | LAB | | | Counted | | | | | + + + + + + | Hemoglobin | 13.8 | 12.0 - 16.0 | EXTERNAL | | | | | g/dL | LAB | | + + + + + + | Hematocrit, | 40.5 | 35 - 45 % | EXTERNAL | | | POC | | | LAB | | + + + + + + | MCV | 95.3 | 81 - 99 fL | EXTERNAL | | | | | | LAB | | + + + + + + | MCH | 32 | 27 - 33 pg | EXTERNAL | | | | | | LAB | | + + + + + + | MCHC | 34 | 30 - 36 g/dL | EXTERNAL | | | | | | LAB | | + + + + + + | Platelet | 337 | 140 - 440 K/ L | EXTERNAL | | | Count | | | LAB | | | Plasma | | | | | + + + + + + | RDW-CV | 13.8 | 10.5 - 15.0 % | EXTERNAL [...] + + + | % Segmented | 68.6 | 39 - 80 % | EXTERNAL | | | | | | LAB | | | Neutrophils | | | | | + + + + + + | % | 20.8 (A) | 24 - 44 % | EXTERNAL | | | Lymphocytes | | | LAB | | + + + + + + | % Monocytes | 9.2 | 0 - 12 % | EXTERNAL | | | | | | LAB | | + + + + + + | % | 0.8 | 0 - 6 % | EXTERNAL | | | Eosinophils | | | LAB | | + + + + + + | % Basophils | 0.6 | 0 - 2 % | EXTERNAL [...] | + +---------+ + + Uric Acid (10/27/2018 12:00 AM PST) + +-------+ + + + | Component | Value | Ref Range | Performed | Pathologist | | | | | At | Signature | + +-------+ + + + | Uric Acid | 4.9 | 2.3 - 6.6 | EXTERNAL | [...] | | + +---------+ + + Magnesium (10/27/2018 12:00 AM PST) + +-------+ + + [...]
--- OUTSIDE RECORDS SUMMARY | ~2020-03-25 | XMS | Encounter Summary ---
Demographics + + + | Address | [address] | | | [place] [address] | + + + | Home Phone | | + + + | Preferred Language | Unknown | + + + | Marital Status | Single | + + + | Hinduism Affiliation | 1013 | + + + | Race | Unknown | + + + | Ethnic Group | Unknown | + + + Author + + + | Author | [facility] | | | and [place] | + + + | Organization | [facility] | | | and Ernestoana [...] Team Providers + +------+ + | Care Head Bellhop Captain Name | Role | Phone | + [...] | | [address] | [place] [address] | | | | | [address] | | | | | | [phone] | | | +--------+ + + + [...]
--- OUTSIDE RECORDS SUMMARY | ~2020-03-25 | XMS | Encounter Summary ---
Demographics + + + | Address | [address] | | | [place] [address] | + + + | Home Phone | | + + + | Preferred Language | Unknown | + + + | Marital Status | Single | + + + | Islam Affiliation | 1013 | + + + | Race | Unknown | + + + | Ethnic Group | Unknown | + + + Author + + + | Author | [facility] | | | and [place] | + + + | Organization | [facility] | | | and Ernesto[place] [...] Team Providers + +------+ + | Care Superintendent General Name | Role | Phone | + [...] | MED CTR EXTERNAL | [address] | | | | | IMAGING [address] | [address] | | | | | [address] [place] | [place] [address] | | | | | [place] [address] | | | | | | [phone] | | | +--------+ + + + [...] this | | CONTRAST | e | 10:10 AM | | procedure are in the | | | | PST | | results section. | + +--------+ + + + documented in this encounter Results MRI Lumbar Spine wo Contrast (10/02/2018 10:10 AM PST) + + | Specimen | [...]
--- OUTSIDE RECORDS SUMMARY | ~2020-03-25 | XMS | Encounter Summary ---
Demographics + + + | Address | [address] | | | [place] [address] | + + + | Home Phone | | + + + | Preferred Language | Unknown | + + + | Marital Status | Single | + + + | Cheondoism Affiliation | 1013 | + + + | Race | Unknown | + + + | Ethnic Group | Unknown | + + + Author + + + | Author | [facility] | | | and [place] | + + + | Organization | [facility] | | | and [place]esto[place] [...] Team Providers + +------+ + | Care Calibrator Barometers Name | Role | Phone | + +------+ + | Noe Regan DO | PCP | | + +------+ + Reason for Visit +--------+ + | Reason | Comments | +--------+ + | Other | medication and throat | +--------+ + Encounter Details +--------+ + + + + | Date | Type | Department | Care Team | Description | +--------+ + + + + | 12/06/ | Telephone | [facility] [place] | Charles Lino MD | Other (medication | | 2015 | | OTOLARYNGOLOGY [address] | [address] | and throat) | | | | [address] | [address], | | | | | [place], [place] | [place] [address] | | | | | [address] | [phone] | | | | | [phone] | | | +--------+ + + + [...]
--- OUTSIDE RECORDS SUMMARY | ~2020-03-25 | XMS | Encounter Summary ---
Demographics + + + | Address | [address] | | | [place] [address] | + + + | Home Phone | | + + + | Preferred Language | Unknown | + + + | Marital Status | Single | + + + | Confucianism Affiliation | 1013 | + + + | Race | Unknown | + + + | Ethnic Group | Unknown | + + + Author + + + | Author | [facility] | | | and [place] | + + + | Organization | [facility] | | | and [...] Team Providers + +------+ + | Care Math And Science Instructor Name | Role | Phone | + [...] | +--------+ + + + + | 01/31/ | Telephone | [facility] [place] | Charles Lino MD | Medication Refill | | 2014 | | [address]OLARYNGOLOGY [address] | [address] | | | | | [address] | [address], | | | | | [place], [place] | [place] [address] | | | | | [address] | [phone] | | | | | [phone] | | | +--------+ + + + [...]
--- OUTSIDE RECORDS SUMMARY | ~2020-03-25 | XMS | Encounter Summary ---
Demographics + + + | Address | [address] | | | [place] [address] | + + + | Home Phone | | + + + | Preferred Language | Unknown | + + + | Marital Status | Single | + + + | Pentecostal Affiliation | 1013 | + + + | Race | Unknown | + + + | Ethnic Group | Unknown | + + + Author + + + | Author | [facility] | | | and [place] | + + + | Organization | [facility] | | | and [place] | + + + | Address | Unknown | + + + | Phone | Unavailable | + + + Support + + +---------+ + | Name | Relationship | Address | Phone | + + +---------+ + | aMndie Singh | ECON | Unknown | | + + +---------+ + Care Team Providers + +------+ + | Care Product Control And Logistics Analyst Name | Role | Phone | [...] [place] [address], | | | | | [place], [place] | [place] [address] | | | | | [address] | [phone] | | | | | [phone] | | | +--------+ + + + [...]
--- OUTSIDE RECORDS SUMMARY | ~2020-03-25 | XMS | Encounter Summary ---
Demographics + + + | Address | [address] | | | [place] [address] | + + + | Home Phone | | + + + | Preferred Language | Unknown | + + + | Marital Status | Single | + + + | Mosque Affiliation | 1013 | + + + | Race | Unknown | + + + | Ethnic Group | Unknown | + + + Author + + + | Author | [facility] | | | and [place]esto[place] | + + + | Organization | [facility] | | | and Ernestoana | [...] Team Providers + +------+ + | Care Shotweld Operator Name | Role | Phone | [...] | | | | | | | [place] | | | | | | | [...] Description | +--------+---------+ + + + | 07/12/ | Surgery | [facility] | Charles Lino MD | DIRECT | | 2013 | | MED CTR OR INTRA OP | [address] | MICROLARYNGOSCOPY W/ | | | | [address] | [address] [place] [address], | EXCISION OF LEFT | | | | [place], [place] | [place] [address] | VOCAL CORD GROWTH | | | | [address] | [phone] | | | | | [phone] | | | +--------+---------+ + + + [...] + + + | Blood Pressure | 123/76 | 07/12/2014 2:30 PM | | | | | PDT | | + + + + + | Pulse | 84 | 07/12/2014 2:30 PM | | | | | PDT | | + + + + + | Temperature | 36.8 C (98.2 F) | 07/12/2014 2:40 PM | | | | | PDT | | + + + + + | Respiratory Rate | 16 | 07/12/2014 2:30 PM | | | | | PDT | | + + + + + | Oxygen Saturation | 100% | 07/12/2014 2:30 PM | | | | | PDT | | + + + + + | Inhaled Oxygen | - | - | | | Concentration | | | | + + + + + | Weight | 103.4 kg (228 lb) | 07/12/2014 10:17 AM | | | | | PDT | | + + + + + | Height | 170.2 cm (5' 7") | 07/12/2014 10:17 AM | | | | | PDT | | + + + + + | Body Mass Index | 35.71 | 07/12/2014 10:17 AM | | | | | PDT | | + + + + + documented in this encounter Discharge Instructions Instructions Charles Lino MD - 07/12/2014Ok to resume coumadin tomorrow. Regular diet and speech. No loud talking for 10 days documented in this encounter Medications at Time of Discharge + + + +---------+--------+ + | Medication | Sig | Dispensed | Refills | Start | End Date | | | | | | Date | | + + + +---------+--------+ + | warfarin | Take 5 mg by mouth | | 0 | | | | (COUMADIN) 5 mg | Daily. | | | | | | tablet | | | | | | + + + +---------+--------+ + | Celecoxib | Take 10 mg by mouth | | 0 | | | | (CELEBREX PO) | Daily. | | | | 9 | + + + +---------+--------+ + | cetirizine | Take 10 mg by mouth | | 0 | | | | (ZYRTEC) 10 mg | Daily. | | | | 9 | | tablet | | | | | | + + + +---------+--------+ + | cyclobenzaprine | Take 10 mg by mouth | | 0 | | | | (FLEXERIL) 10 mg | 3 times daily as | | | | 9 | | tablet | needed. | | | | | + + + +---------+--------+ + | enoxaparin | Inject 10 mg under | | 0 | | | | (LOVENOX) 100 mg/mL | the skin every 12 | | | | 9 | | injection | hours. Using for 5 | | | | | | | days prior to | | | | | | | surgery. | | | | | + + + +---------+--------+ + | | Take 1 tablet by | | 0 | | | | lisinopril-hydrochlo | mouth Daily. | | | | 9 | | rothiazide | | | | | | | (PRINZIDE,ZESTORETIC | | | | | | | ) 10-12.5 MG per | | | | | | | tablet | | | | | | + + + +---------+--------+ + | methocarbamol | Take 750 mg by mouth | | 0 | | | | (ROBAXIN) 750 mg | 2 times daily. | | | | 9 | | tablet | | | | | | + + + +---------+--------+ + | omeprazole | Take 20 mg by mouth | | 0 | | | | (PRILOSEC) 20 mg | every morning | | | | 9 | | capsule | (before breakfast). | | | | | + + + +---------+--------+ + | warfarin | Take 10 mg by mouth | | 0 | | | | (COUMADIN) 10 mg | Daily. | | | | 9 | | tablet | | | | | | + + + +---------+--------+ + documented as of this encounter Plan of Treatment Not on filedocumented as of this encounter Procedures + +--------+ + + + | Procedure Name | Priori | Date/Time | Associated Diagnosis | Comments | | | ty | | | | + +--------+ + + + | BRONCHOSCOPY / | | 07/12/2014 | Other diseases of | | | LARYNGOSCOPY / | | 11:21 AM | vocal cords | | | ESOPHAGOSCOPY | | PDT | Dysphonia | | + +--------+ + + + | POCT FINGERSTICK INR | STAT | 07/12/2014 | | Results for this | | | | 10:55 AM | | procedure are in the | | | | PDT | | results section. | + +--------+ + + + documented in this encounter Results POC Fingerstick INR (07/12/2014 10:55 AM PDT) + + + + + + | Component | Value | Ref Range | Performed | Pathologist | | | | | At | Signature | + + + + + + | INR POC | 1.0Comment: PT =12.2 | 0.9 - 1.2 | | | + + + + + + | Instrument | | | | | | ID | | | | | + + + + + + + + | Specimen | + + | Blood specimen | | (specimen) | + + documented in this encounter Visit Diagnoses + + | Diagnosis | + + | Other diseases of vocal cords | + + | Dysphonia | + + documented in this encounter Administered Medications + +--------+ +--------+------+------+ | Medication Order | MAR | Action | Dose | Rate | Site | | | Action | Date | | | | + +--------+ +--------+------+------+ | fentaNYL injection 25-50 mcg | Given | 07/12/20 | 50 mcg | | | | 25-50 mcg, Intravenous, EVERY 5 | | 14 12:50 | | | | | MIN PRN, Pain, Starting Tue | | PM PDT | | | | | 07/12/14 at 1225, Maximum total | | | | | | | dose 250 mcg. PACU IV Narcotic | | | | | | | Priority: Only use fentanyl for | | | | | | | immediate post-op pain (one dose) | | | | | | | or breakthrough pain when any | | | | | | | other IV narcotics ordered have | | | | | | | been ineffective (if ordered). | | | | | | | If both morphine and | | | | | | | hydromorphone are ordered, use | | | | | | | morphine first, and use | | | | | | | hydromporphone if morphine | | | | | | | ineffective., Recovery/Phase I | | | | | | + +--------+ +--------+------+------+ +-------+ +--------+---+---+ | Given | 07/12/20 | 50 mcg | | | | | 14 12:30 | | | | | | PM PDT | | | | +-------+ +--------+---+---+ +---+---+ | | | +---+---+ + +-------+ +--------+---+---+ | HYDROcodone-acetaminophen | Given | 07/12/20 | 15 mLs | | | | (HYCET) 7.5-325 mg/15 mL liquid | | 14 2:45 | | | | | 15 mL 15 mL, Oral, EVERY 4 HOURS | | PM PDT | | | | | PRN, Pain, Starting Fri07/12/14 | | | | | | | at 1436, Post-op/Phase II | | | | | | + +-------+ +--------+---+---+ +---+---+ | | | +---+---+ + +-------+ +--------+---+---+ | HYDROmorphone (DILAUDID) | Given | 07/12/20 | 0.5 mg | | | | injection 0.2-0.5 mg 0.2-0.5 mg, | | 14 12:53 | | | | | Intravenous, EVERY 5 MIN PRN, | | PM PDT | | | | | Pain, Starting Fri07/12/14 at | | | | | | | 1225, Maximum total dose 4 mg. | | | | | | | PACU IV Narcotic Priority: Only | | | | | | | use fentanyl for immediate | | | | | | | post-op pain (one dose) or | | | | | | | breakthrough pain when any other | | | | | | | IV narcotics ordered have been | | | | | | | ineffective (if ordered). If | | | | | | | both morphine and hydromorphone | | | | | | | are ordered, use morphine first, | | | | | | | and use hydromporphone if | | | | | | | morphine ineffective., | | | | | | | Recovery/Phase I | | | | | | + +-------+ +--------+---+---+ +-------+ +--------+---+---+ | Given | 07/12/20 | 0.5 mg | | | | | 14 12:32 | | | | | | PM PDT | | | | +-------+ +--------+---+---+ +---+---+ | | | +---+---+ + +---------+ +---+-------+---+ | lactated ringers (LR) infusion | New Bag | 07/12/20 | | 100 | | | at 10-100 mL/hr, Intravenous, | | 14 10:54 | | mL/hr | | | CONTINUOUS, Starting 07/12/14 | | AM PDT | | | | | at 1030, TKO., Pre-op | | | | | | + +---------+ +---+-------+---+ +---+---+ | | | +---+---+ + +-------+ +-------+---+---+ | meperidine (DEMEROL) injection | Given | 07/12/20 | 25 mg | | | | 12.5-25 mg 12.5-25 mg, | | 14 12:59 | | | | | Intravenous, PRN, Shivering, | | PM PDT | | | | | Starting Fri07/12/14 at 1225, For | | | | | | | 2 doses, May Repeat once in 5 | | | | | | | min., Recovery/Phase I | | | | | | + +-------+ +-------+---+---+ +---+---+ | | | +---+---+ + +-------+ +------+---+---+ | morphine injection 2-4 mg 2-4 | Given | 07/12/20 | 2 mg | | | | mg, Intravenous, EVERY 1 HOUR | | 14 2:30 | | | | | PRN, Pain, Starting Tu07/12/14 | | PM PDT | | | | | at 1331, Slow IV push, not faster | | | | | | | than 2 mg/minute. If | | | | | | | ineffective or not tolerated, use | | | | | | | hydromorphone IV if ordered, | | | | | | | Post-op/Phase II | | | | | | + +-------+ +------+---+---+ +---+---+ | | | +---+---+ documented in this encounter
--- OUTSIDE RECORDS SUMMARY | ~2020-03-25 | XMS | Encounter Summary ---
Demographics + + + | Address | [address] | | | [place] [address] | + + + | Home Phone | | + + + | Preferred Language | Unknown | + + + | Marital Status | Single | + + + | Scientologist Affiliation | 1013 | + + + | Race | Unknown | + + + | Ethnic Group | Unknown | + + + Author + + + | Author | [facility] | | | and [place]esto[place] | + + + | Organization | [facility] | | | and [...] Team Providers + +------+ + | Care Senior Care Assistant Name | Role | Phone | + [...] | | | | | Procedures | [address] | [place] [address] | | | | | NEW PATIENT | Phone: | Phone: | | | | | | [phone] | [phone] | | | | | | Fax: | Fax: | | | | | | [phone] | [phone] | +--------+--------+ + + + + Encounter Details +--------+---------+ + + + | Date | Type | Department | Care Team | Description | +--------+---------+ + + + | 06/13/ | Office | [facility] | Charles Lino MD | Other diseases of | | 2013 | Visit | OTOLARYNGOLOGY [address] | [address] | vocal cords (Primary | | | | [address] | [address] [place], | Dx); Dysphonia | | | | [place] | [place] [address] | | | | | [address] | [phone] | | | | | [phone] | | | +--------+---------+ + + + [...] MD - 06/13/2014 5:21 PM PDTSee dictation #[id number] signed by Gumaro Lino MD at 06/13/2014 5:27 PM Charles Henderson MD - 06/13/2014 12:00 AM PDT ENT [facility] AUDIOLOGY [address] [address] FAX: [phone] OFFICE VISIT NEW PATIENT VISIT HISTORY: The [...] Charles Lino MD / MINA JOB #: [id number] signed by Charles Lino MD at 06/14/2014 7:55 AM PDTdocumentarmand more in this encounter Plan of Treatment Not on filedocumented as of this encounter Visit Diagnoses + + | Diagnosis | + + | Other diseases of vocal cords - Primary | + + | Dysphonia | + + documented in this encounter
--- OUTSIDE RECORDS SUMMARY | ~2020-03-25 | XMS | Encounter Summary ---
Demographics + + + | Address | [address] | | | [place] [address] | + + + | Home Phone | | + + + | Preferred Language | Unknown | + + + | Marital Status | Single | + + + | Religion Affiliation | 1013 | + + + | Race | Unknown | + + + | Ethnic Group | Unknown | + + + Author + + + | Author | [facility] | | | and [place] | + + + | Organization | [facility] | | | and [place]esto[place] | [...] Team Providers + +------+ + | Care Photographic Equipment Inspector Name | Role | Phone | + +------+ + | Kelly Alfonso | PCP | | | PA | | | + +------+ + Encounter Details +--------+ + + + + | Date | Type | Department | Care Team | Description | +--------+ + + + + | 12/02/ | Orders Only | [facility] | Konrad Raphael MD | | | 2017 | | NEPHROLOGY [place] | [address] | | | | | [address] | [address] [place], [place] | | | | | [address] [place], [place] | [address] | | | | | [address] | | | | | | [phone] | | | +--------+ + + + [...] | EXTERNAL LAB: CBC | Routin | 12/02/2017 | | Results for this | | | e | 10:53 AM | | procedure are in the | | | | PST | | results section. | + +--------+ + + + | URINALYSIS WITH | Routin | 12/02/2017 | | Results for this | | MICROSCOPIC IF | e | 10:53 AM | | procedure are in the | | INDICATED | | PST | | results section. | + +--------+ + + + | PROTEIN/CREATININE | Routin | 12/02/2017 | | Results for this | | RATIO, URINE | e | 10:53 AM | | procedure are in the | | | | PST | | results section. | + +--------+ + + + | URIC ACID | Routin | 12/02/2017 | | Results for this | | | e | 10:53 AM | | procedure are in the | | | | PST | | results section. | + +--------+ + + + | MAGNESIUM | Routin | 12/02/2017 | | Results for this | | | e | 10:53 AM | | procedure are in the | | | | PST | | results section. | + +--------+ + + + | RENAL FUNCTION PANEL | Routin | 12/02/2017 | | Results for this | | | e | 10:53 AM | | procedure are in the | | | | PST | | results section. | + +--------+ + + + documented in this encounter Results Protein/Creatinine Ratio, Urine (12/02/2017 10:53 AM PST) + +---------+ + + + | Component | Value | Ref Range | Performed | Pathologist | | | | | At | Signature | + +---------+ + + + | Protein/Cre | 337 (A) | 0 - 150 | EXTERNAL [...] + + Urinalysis with Microscopic if Indicated (12/02/2017 10:53 AM PST) + + + + + [...] + + + | Spec Grav, | 1.018 | 1.005 - 1.030 | EXTERNAL | [...] + + + + | Total | Negative | | EXTERNAL | | | Protein [...] + +---------+ + + External Lab: CBC (12/02/2017 10:53 AM PST) + + + + + + | Component | Value | Ref Range | Performed | Pathologist | | | | | At | Signature | + + + + + + | WBC | 6.2 | 4.5 - 11.0 10 | EXTERNAL | | | | | | LAB | | + + + + + + | Red Blood | 4.85 | 3.8 - 5.1 10 | EXTERNAL | | | Cells | | | LAB | | | Counted | | | | | + + + + + + | Hemoglobin | 13.9 | 12.0 - 16.0 | EXTERNAL | | | | | g/dL | LAB | | + + + + + + | Hematocrit, | 42.5 | 35 - 45 % | EXTERNAL | | | POC | | | LAB | | + + + + + + | MCV | 87.7 | 81 - 99 fL | EXTERNAL [...] + + + + | Platelet | 308 | 140 - 440 K/ L | EXTERNAL | | | Count | | | LAB | | | Plasma | | | | | + + + + + + | RDW-CV | 16.3 (A) | 10.5 - 15.0 % | [...] | + +---------+ + + Uric Acid (12/02/2017 10:53 AM PST) + +-------+ + + + | Component | Value | Ref Range | Performed | Pathologist | | | | | At | Signature | + +-------+ + + + | Uric Acid | 5.2 | 2.3 - 6.6 | EXTERNAL | [...] | | + +---------+ + + Magnesium (12/02/2017 10:53 AM PST) + +-------+ + + + [...] + +---------+ + + Renal Function Panel (12/02/2017 10:53 AM PST) + + + + + + | Component | Value | Ref Range | Performed | Pathologist | | | | | At | Signature | + + + + + + | Glucose, | 104 (A) | 70 - 100 mg/dL | EXTERNAL | | | Fasting | | | LAB | | + + + + + + | BUN | 22 | 6 - 23 mg/dL | EXTERNAL | | | | | | LAB | | + + + + + + | Creatinine | 0.68 | 0.6 - 1.35 | EXTERNAL | | | | | mg/dL | LAB | | + + + + + + | PHOSPHORUS | | mg/dL | EXTERNAL | | | | | | LAB | | + + + + + + | Albumin | 4.2 | 3.5 - 5.0 | EXTERNAL | | | | | | LAB | | + + + + + + | Na | 137 | 132 - 143 | EXTERNAL | | | | | mmol/L | LAB | | + + + + + + | K | 4.1 | 3.6 - 5.1 | EXTERNAL | | | | | mmol/L | LAB | | + + + + + + | Cl | 101 | 95 - 112 mmol/L | EXTERNAL | | | | | | LAB | | + + + + + + | CO2 | 24 | 19 - 31 mmol/L | EXTERNAL | | | | | | LAB | | + + + + + + | Anion Gap | 16.1 | 7 - 21 mmol/L | EXTERNAL | | | | | | LAB | | + + + + + + | eGFR if not | | | EXTERNAL | | | | | | LAB | | | CAMBODIAN | | | | | + + + + + + | Phosphorus, | 2.7 | 2.5 - 5.0 | EXTERNAL | | | Inorganic | | | LAB | | + + + + + + | BUN/Creatin | 32.4 (A) | 6.0 - 28.6 | EXTERNAL | | | ine Ratio | | | LAB | | + + + + + + | Calcium | 9.7 | 8.4 - 10.2 | EXTERNAL | | | | | mg/dL | LAB | | + + + + + + | Estimated | 92 [...]
--- OUTSIDE RECORDS SUMMARY | ~2020-03-25 | XMS | Encounter Summary ---
Demographics + + + | Address | [address] | | | [place] [address] | + + + | Home Phone | | + + + | Preferred Language | Unknown | + + + | Marital Status | Single | + + + | Druze Affiliation | 1013 | + + + | Race | Unknown | + + + | Ethnic Group | Unknown | + + + Author + + + | Author | [facility] | | | and [place] | + + + | Organization | [facility] | | | and [place] [...] Team Providers + +------+ + | Care Wheelabrator Operator Name | Role | Phone | + +------+ + | Noe Regan DO | PCP | | + +------+ + Encounter Details +--------+ + + + + | Date | Type | Department | Care Team | Description | +--------+ + + + + | 10/13/ | Hospital | [facility] | Conversion | Pain | | 2018 | Encounter | CONVERSION DEP [address] | Transaction, | | | | | [address] | Provider Unknown | | | | | [place] | [phone] | | | | | [address] | | | | | | [phone] | | | +--------+ + + + [...] | + +--------+ + + + | XR LUMBAR SPINE 4 + | Routin | 08/06/2018 | | Results for this | | VW | e | 2:42 AM | | procedure are in the | | | | PDT | | results section. | + +--------+ + + + documented in this encounter Results XR Lumbar Spine 4 + Vw (08/06/2018 2:42 AM PDT) + + | Specimen | + [...]
--- OUTSIDE RECORDS SUMMARY | ~2020-03-25 | XMS | Encounter Summary ---
Demographics + + + | Address | [address] | | | [place] [address] | + + + | Home Phone | | + + + | Preferred Language | Unknown | + + + | Marital Status | Single | + + + | Quaker Affiliation | 1013 | + + + | Race | Unknown | + + + | Ethnic Group | Unknown | + + + Author + + + | Author | [facility] | | | and [place] | + + + | Organization | [facility] | | | and [place] | [...] Providers + +------+ + | Care Corporate Specialist Name | Role | Phone | + +------+ + | Kelly Alfonso | PCP | | | PA | | | + +------+ + Encounter Details +--------+ + + + + | Date | Type | Department | Care Team | Description | +--------+ + + + + | 10/27/ | Orders Only | [facility] | Bernard Doe, | | | 2017 | | NEPRHOLOGY [place] | [address]ASHIER [address] | | | | | [address] | [address] | | | | | [address] [place], [place] | [place], [place] | | | | | [address] | [address] | | | | | [phone] | [phone] | | | | | | | [...] + | URINALYSIS WITH | Routin | 10/27/2018 | | Results for this | | MICROSCOPIC IF | e | 12:00 AM | | procedure are in the | | INDICATED | | PST | | results section. | + +--------+ + + + | MICROALBUMIN/CREATIN | Routin | 10/27/2018 | | Results for this | | INE RATIO, URINE | e | 12:00 AM | | procedure are in the | | TEST | | PST | | results section. | + +--------+ + + + | RENAL FUNCTION PANEL | Routin | 10/27/2018 | | Results for this | | | e | 12:00 AM | | procedure are in the | | | | PST | | results section. | + +--------+ + + + documented in this encounter Results Microalbumin/Creatinine Ratio, Urine (10/27/2018 12:00 AM PST) + + + + + + | Component | Value | Ref Range | Performed | Pathologist | | | | | At | Signature | + + + + + + | ALBUMIN/CRE | 150.7 (A) | 0 - 30 | EXTERNAL | | | ATININE | | | LAB | | | RATIO.URINE | | | | | | .ORD.MG/G | | | | | | (ODELL) | | | | | | | | | | | | | | | | | + + + + + + + + | Specimen | + + | Urine specimen | | (specimen) | + + + + + | Narrative | Performed At | + + + | MICROALB, URINE - 11.3 - 0.0 - 2.0 CREATININE, URINE - 75 | EXTERNAL LAB | + + + + +---------+ + + | Performing | Address | City/State/Zipcode | Phone Number | | Organization | | | | + +---------+ + + | EXTERNAL LAB | | | | + +---------+ + + Urinalysis with Microscopic if Indicated (10/27/2018 12:00 AM PST) + + + [...] + + + | Spec Grav, | 1.020 | 1.005 - 1.030 | EXTERNAL | | | Fluid | | | LAB | | + + + + + + | Leukocyte | Comment: TRACE | | EXTERNAL | | | Esterase, [...] + + + + | Total | Comment: 30 | | EXTERNAL | | | Protein | | | LAB | | + + + + + + | pH, Urine | 7 | 5 - 9 | EXTERNAL | | | | | | LAB | | + + + + + + | Blood, | Negative | | EXTERNAL | | [...] + | CASTS - NEGATIVE WBC'S - 15 - 0-4 RBC'S - 2 - 0-4 | EXTERNAL LAB | + + + + +---------+ + + | Performing | Address | City/State/Zipcode | Phone Number | | Organization | | | | + +---------+ + + | EXTERNAL LAB | | | | + +---------+ + + Renal Function Panel (10/27/2018 12:00 AM PST) + + + + + + | Component | Value | Ref Range | Performed | Pathologist | | | | | At | Signature | + + + + + + | Glucose, | 112 (A) | 70 - 100 mg/dL | EXTERNAL | | | Fasting | | | LAB | | + + + + + + | BUN | 22 | 6 - 23 mg/dL | EXTERNAL | | | | | | LAB | | + + + + + + | Creatinine | 0.66 | 0.60 - 1.35 | EXTERNAL | | | | | mg/dL | LAB | | + + + + + + | PHOSPHORUS | | mg/dL | EXTERNAL | | | | | | LAB | | + + + + + + | Albumin | 4.3 | 3.5 - 5.0 | EXTERNAL | | | | | | LAB | | + + + + + + | Na | 139 | 132 - 143 | EXTERNAL | | | | | mmol/L | LAB | | + + + + + + | K | 4.4 | 3.6 - 5.1 | EXTERNAL | | | | | mmol/L | LAB | | + + + + + + | Cl | 101 | 95 - 112 mmol/L | EXTERNAL | | | | | | LAB | | + + + + + + | CO2 | 23 | 19 - 31 mmol/L | EXTERNAL | | | | | | LAB | | + + + + + + | Anion Gap | 19.4 | 7 - 21 mmol/L | EXTERNAL | | | | | | LAB | | + + + + + + | eGFR if not | | | EXTERNAL | | | | | | LAB | | | [facility] | | | | | + + + + + + | Phosphorus, | 4.0 | 2.5 - 5.0 | EXTERNAL | | | Inorganic | | | LAB | | + + + + + + | BUN/Creatin | 33.3 (A) | 6.0 - 28.6 | EXTERNAL | | | ine Ratio | | | LAB | | + + + + + + | Calcium | 9.5 | 8.5 - 10.3 | EXTERNAL | | | | | mg/dL | LAB | | + + + + + + | Estimated | 96 [...]
--- OUTSIDE RECORDS SUMMARY | ~2020-03-25 | XMS | Encounter Summary ---
Demographics + + + | Address | [address] | | | [place] [address] | + + + | Home Phone | | + + + | Preferred Language | Unknown | + + + | Marital Status | Single | + + + | Restoration Affiliation | 1013 | + + + | Race | Unknown | + + + | Ethnic Group | Unknown | + + + Author + + + | Author | [facility] | | | and [place] | + + + | Organization | [facility] | | | and [place] [...] Team Providers + +------+ + | Care Coordinating Producer Name | Role | Phone | + [...] | +--------+ + + + + | 10/31/ | Telephone | [facility] [place] | Charles Lino MD | Medication Refill | | 2013 | | OTOLARYNGOLOGY [address] | [address] | | | | | [address] | [address] [place], | | | | | [place], [place] | [place] [address] | | | | | [address] | [phone] | | | | | [phone] | | | +--------+ + + + [...]
--- OUTSIDE RECORDS SUMMARY | ~2020-03-25 | XMS | Encounter Summary ---
Demographics + + + | Address | [address] | | | [place] [address] | + + + | Home Phone | | + + + | Preferred Language | Unknown | + + + | Marital Status | Single | + + + | Yarsanism Affiliation | [id number] | + + + | Race | Unknown | + + + | Ethnic Group | Unknown | + + + Author + + + | Author | [facility] | | | and [place] | + + + | Organization | [facility] | | | and [place] [...] Team Providers + +------+ + | Care Wedding Transportation Driver Name | Role | Phone | + +------+ + | Kelly Alfonso | PCP | | | PA | | | + +------+ + Encounter Details +--------+ + + + + | Date | Type | Department | Care Team | Description | +--------+ + + + + | 10/07/ | Orders Only | [facility] | Conversion | | | 2016 | | NEPRHOLOGY NIMESH | Transaction, | | | | | [address] | Provider Unknown | | | | | [facility] [place] | [phone] | | | | | [address] | | | | | | [phone] | | | +--------+ + + + [...] | + +--------+ + + + | BASIC METABOLIC | Routin | 10/07/2017 | | Results for this | | PANEL | e | 12:00 AM | | procedure are in the | | | | PST | | results section. | + +--------+ + + + documented in this encounter Results Basic Metabolic Panel (10/07/2017 12:00 AM PST) + +---------+ + + + | Component | Value | Ref Range | Performed | Pathologist | | | | | At | Signature | + +---------+ + + + | Glucose, | 104 (A) | 70 - 100 mg/dL | EXTERNAL | | | Fasting | | | LAB | | + +---------+ + + + | BUN | 17 | 6 - 23 mg/dL | EXTERNAL | | | | | | LAB | | + +---------+ + + + | Creatinine | 0.69 | 0.60 - 1.35 | EXTERNAL | | | | | mg/dL | LAB | | + +---------+ + + + | BUN/Creatin | 24.6 | 6.0 - 28.6 | EXTERNAL | | | ine Ratio | | | LAB | | + +---------+ + + + | Calcium | 9.1 | 8.4 - 10.2 | EXTERNAL | | | | | mg/dL | LAB | | + +---------+ + + + | Na | 134 | 132 - 143 | EXTERNAL | | | | | mmol/L | LAB | | + +---------+ + + + | K | 3.9 | 3.6 - 5.1 | EXTERNAL | | | | | mmol/L | LAB | | + +---------+ + + + | Cl | 100 | 95 - 112 mmol/L | EXTERNAL | | | | | | LAB | | + +---------+ + + + | CO2 | 22 | 19 - 31 mmol/L | EXTERNAL | | | | | | LAB | | + +---------+ + + + | Anion Gap | 15.9 | 7 - 21 mmol/L | EXTERNAL [...]
--- OUTSIDE RECORDS SUMMARY | ~2020-03-25 | XMS | Encounter Summary ---
Demographics + + + | Address | [address] | | | [place] [address] | + + + | Home Phone | | + + + | Preferred Language | Unknown | + + + | Marital Status | Single | + + + | Synagogue Affiliation | 1013 | + + + | Race | Unknown | + + + | Ethnic Group | Unknown | + + + Author + + + | Author | [facility] | | | and [place] | + + + | Organization | [facility] [...] Team Providers + +------+ + | Care Prepared Foods Associate Name | Role | Phone | + [...] | | | | | | | [place] | | | | | | | [...] + + | 07/12/ | Anesthesia | [facility] | Kolby Benoit | | | 2013 | Event | MED CTR OR INTRA OP | MD Willie [address] | | | | | [address] | [address] [place] | | | | | [place] | [address] | | | | | [address] | | | | | | [phone] | | | +--------+ + + + [...]
--- OUTSIDE RECORDS SUMMARY | ~2020-03-25 | XMS | Encounter Summary ---
Demographics + + + | Address | [address] | | | [place] [address] | + + + | Home Phone [...] | Organization | [facility] | | | [...] Team Providers + +------+ + | Care Walnut Dehydrator Operator Name | Role | Phone | [...] [place], | | | | | [place], [place] | [place] [address] | | | | | [address] | [phone] | | | | | [phone] | | | +--------+--------+ + + + [...]
--- OUTSIDE RECORDS SUMMARY | ~2020-03-25 | XMS | Encounter Summary ---
Demographics + + + | Address | [address] | | | [place] [address] | + + + | Home Phone [...] Organization | [facility] | | | and [...] Team Providers + +------+ + | Care Take Away Attendant Name | Role | Phone | + +------+ + | Kelly Alfonso | PCP | | | PA | | | + +------+ + Encounter Details +--------+ + + + + | Date | Type | Department | Care Team | Description | +--------+ + + + + | 12/16/ | Orders Only | [facility] | Conversion | | | 2017 | | NEPHROLOGY [place]BI[place] | Transaction, | | | | | [address] | Provider Unknown | | | | | [address] [place] | [phone] | | | | | [address] | | | | | | [phone] | | | +--------+ + + + [...] - 1.030 | EXTERNAL | | | [place], | | | LAB | | | [...] | | | LAB | | | [place]OUTH [place]ORE[place] | | | | | + +---------+ [...]
--- OUTSIDE RECORDS SUMMARY | ~2020-03-25 | XMS | Encounter Summary ---
Demographics + + + | Address | [address] | | | [place] [address] | + + + | Home Phone | | + + + | Preferred Language | Unknown | + + + | Marital Status | Single | + + + | Pentecostalism Affiliation | 1013 | + + + | Race | Unknown | + + + | Ethnic Group | Unknown | + + + Author + + + | Author | [facility] | | | and [place] | + + + | Organization | [facility] | | | and Ernestoana | [...] Team Providers + +------+ + | Care Boilers And Pressure Vessels Inspector Name | Role | Phone | + +------+ + | Noe Regan DO | PCP | | + +------+ + Encounter Details +--------+ + + + + | Date | Type | Department | Care Team | Description | +--------+ + + + + | 10/13/ | Hospital | [facility] | Conversion | Pain | | 2018 | Encounter | CONVERSION DEP [address] | Transaction, | | | | | [address] | Provider Unknown | | | | | [place] | [phone] | | | | | [address] | | | | | | [phone] | | | +--------+ + + + [...]
--- OUTSIDE RECORDS SUMMARY | ~2020-03-25 | XMS | Encounter Summary ---
Demographics + + + | Address | [address] | | | [place] [address] | + + + | Home Phone | | + + + | Preferred Language | Unknown | + + + | Marital Status | Single | + + + | Muslim Affiliation | 1013 | + + + | Race | Unknown | + + + | Ethnic Group | Unknown | + + + Author + + + | Author | [facility] | | | and [place] | + + + | Organization | [facility] | | | and [...] Team Providers + +------+ + | Care Implant Polisher Name | Role | Phone | + [...] | MED CTR EXTERNAL | [address] | | | | | IM[address] | [address] | | | | | [address] | [place] [address] | | | | | [place] [address] | | | | | | [phone] | | | +--------+ + + + [...] + +--------+ + + + | XR FOOT LEFT 3 + VW | Routin | 05/10/2014 | | Results for this | | | e | 8:45 AM | | procedure are in the | | | | PDT | | results section. | + +--------+ + + + documented in this encounter Results XR Foot Left 3 + Vw (05/10/2014 8:45 AM PDT) + + | Specimen | [...]
--- OUTSIDE RECORDS SUMMARY | ~2020-03-25 | XMS | Encounter Summary ---
Demographics + + + | Address | [address] | | | [place] [address] | + + + | Home Phone | | + + + | Preferred Language | Unknown | + + + | Marital Status | Single | + + + | Muslim Affiliation | 1013 | + + + | Race | Unknown | + + + | Ethnic Group | Unknown | + + + Author + + + | Author | [facility] | | | and [place]esto[place] | + + + | Organization | [facility] | | | and [...] Team Providers + +------+ + | Care Backup Engineer Name | Role | Phone | + [...] | | | | | | | [place] | | | | | | | [...] + + + + | 07/12/ | Hospital | [facility] | Charles Lino MD | Leukoplakia of vocal | | 2013 | Encounter | MED CTR OR INTRA OP | [address] | cords (Primary Dx) | | | | [address] | [address] [place], | | | | | [place], [place] | [place] [address] | | | | | [address] | [phone] | | | | | [phone] | | | +--------+ + + + [...] + + + + + + | INR, POC | 1.0Comment: PT =12.2 | 0.9 [...] + | Diagnosis | + + | 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
--- OUTSIDE RECORDS SUMMARY | ~2020-03-25 | XMS | Encounter Summary ---
Demographics + + + | Address | [address] | | | [place] [address] | + + + | Home Phone | | + + + | Preferred Language | Unknown | + + + | Marital Status | Single | + + + | Latter-Day Affiliation | 1013 | + + + | Race | Unknown | + + + | Ethnic Group | Unknown | + + + Author + + + | Author | [facility] | | | and [place] | + + + | Organization | [facility] | | | and Ernestoana [...] Team Providers + +------+ + | Care Toggler Name | Role | Phone | + +------+ + | Noe Calle DO | PCP | | + +------+ + Reason for Visit + + + | Reason | Comments | + + + | Follow-up | 1 month follow up for vocal cords no change | + + + Self-referral (Routine) +--------+--------+ + + + + | Status | Reason | Specialty | Diagnoses / | Referred By | Referred To | | | | | Procedures | Contact | Contact | +--------+--------+ + + + + | Closed | | Otolaryngolog | Diagnoses | | Charles Rivas | | | | y | follow up 1 | | EMD [address] | | | | | month vocal | [address] | | | | | cords/ | | [address] | | | | | szkayleeki/moda | | [place], | | | | | Procedures | | [place] [address] | | | | | OFFICE | | Phone: | | | | | VISIT | | [phone] | | | | | REGULAR | | Fax: | | | | | | | [phone] | +--------+--------+ + + + + Encounter Details +--------+---------+ + + + | Date | Type | Department | Care Team | Description | +--------+---------+ + + + | 11/25/ | Office | [facility] | Charles Rivas MD | Dysphonia (Primary | | 2015 | Visit | OTOLARYNGOLOGY [address] | [address] | Dx) | | | | [address] | [address] [place], | | | | | [place], [place] | [place] [address] | | | | | [address] | [phone] | | | | | [phone] | | | +--------+---------+ + + + [...] + + + + | Pulse | 90 | 11/25/2014 9:33 AM | | | | | PST [...] Weight | 103.4 kg (228 lb) | 11/25/2014 9:33 AM | | | | | PST | | + + + + + | Height | 170.2 cm (5' 7") | 11/25/2014 9:33 AM | | | | | PST | | + + + + + | Body Mass Index | 35.71 | 11/25/2014 9:33 AM | | | | | PST | | + + + + + documented in this encounter Progress Notes Charles Rivas MD - 11/25/2014 12:11 PM PST [facility] OTOLARYNGOLOGY [address] [facility] [address] OFFICE NOTE CHARLES RIVAS MD Patient: YAMILA YEAGER Admitting: MR #: [id number] LOC: PT TYPE: Adm Date: 11/25/2014 : 1970 DATE OF VISIT: 11/25/2014. HISTORY OF PRESENT ILLNESS: The patient was seen back a month ago. She has a focal fatig ue as she seems to talk not too bad in the morning, but as she progresses through the day s he has more and more strain to talk. She was placed on Xanax tiny dose to see if this might relax the muscles somewhat. She has not really noted any particular improvement. She had a small nodule removed from the cord back last summer. The examination today shows an al ert 44-year-old patient who still has what sounds like she is straining to talk and it is n ot very clear, and may just be a phonation dysfunction by the sound. The nose was sprayed on the left hand side. Special procedure carried out. Fiberoptic scope was used. Looking through the nasal passage and down into the nasopharynx was carried out. No mass or lesio ns seen in this area. Rosenmuller fossae were open and clear. Posterior and lateral phary ngeal jones were smooth. Base of tongue, vallecula, epiglottis, no abnormality noted. Voc al cords appeared grossly normal. There is no mass or lesion and there is no arytenoid davy ma, no evidence of laryngopharyngeal reflux. Piriform sinuses are smooth and appeared to be healthy. The scope was then removed. IMPRESSION: Dysphonia. PLAN: The patient given a Medrol Dosepak to see if there is inflammation that might settl e down. If this is not improving, then patient may need to have a stroboscopy or may need to see speech therapy to try to work on improving her vocal function. CHARLES RIVAS MD Dictated by CHARLES RIVAS MD 11/25/2014 12:11:46 Transcribed on 11/25/2014 12:30:21 by job# [id number] Confirmation #: [id number] cc: BINDU CALLE DO [facility], Charles Alvarez MD - 11/25/2014 12:08 PM PSTSee dictation # [id number] signed by Charles Rivas MD at 11/25/2014 12:12 PM PSTdocumented in th is encounter Plan of Treatment Not on filedocumented as of this encounter Visit Diagnoses + + | Diagnosis | + + | Dysphonia - Primary | + + documented in this encounter
--- OUTSIDE RECORDS SUMMARY | ~2020-03-25 | XMS | Encounter Summary ---
Demographics + + + | Address | [address] | | | [place] [address] | + + + | Home Phone [...] + + + | Author | [facility] | | | and Ernesto[place] | + + + | Organization | [facility] | | | and [...] Team Providers + +------+ + | Care Resource Center Teacher Name | Role | Phone | + [...] [place], | | | | | [place], [place] | [place] [address] | | | | | [address] | [phone] | | | | | [phone] | | | +--------+ + + + [...]
--- OUTSIDE RECORDS SUMMARY | ~2020-03-25 | XMS | Encounter Summary ---
Demographics + + + | Address | [address] | | | [place] [address] | + + + | Home Phone [...] + + | Organization | [facility] | | | and [...] Team Providers + +------+ + | Care Team Cdl Driver Name | Role | Phone | + +------+ + | Kelly Alfonso | PCP | | | PA | | | + +------+ + Encounter Details +--------+ + + + + | Date | Type | Department | Care Team | Description | +--------+ + + + + | 05/12/ | Orders Only | [facility] | Bernard Doe, | | | 2017 | | NEPRHOLOGY [place] | SENIOR BUSINESS ANALYST [address] | | | | | [address] | [address] | | | | | [address] [place], [place] | [place], [place] | | | | | [address] | [address] | | | | | [phone] | [phone] | | | | | | | [...] | | | LAB | | | [place] | | | | | + +-------+ [...]
--- OUTSIDE RECORDS SUMMARY | ~2020-03-25 | XMS | Encounter Summary ---
Demographics + + + | Address | [address] | | | [place] [address] | + + + | Home Phone | | + + + | Preferred Language | Unknown | + + + | Marital Status | Single | + + + | Amish Affiliation | 1013 | + + + | Race | Unknown | + + + | Ethnic Group | Unknown | + + + Author + + + | Author | [facility] | | | and Ernesto[place] | + + + | Organization | [facility] | | | and [...] Team Providers + +------+ + | Care Turbine Blade Assembler Name | Role | Phone | + +------+ + | Kelly Alfonso | PCP | | | PA | | | + +------+ + Encounter Details +--------+ + + + + | Date | Type | Department | Care Team | Description | +--------+ + + + + | 10/27/ | Orders Only | [facility] | Conversion | | | 2018 | | NEPRHOLOGY [place] | Transaction, | | | | | [address] | Provider Unknown | | | | | [address] [place] | [phone] | | | | | [address] | | | | | | [phone] | | | +--------+ + + + [...] | + +--------+ + + + | CULTURE, URINE | Routin | 10/27/2018 | | Results for this | | | e | 12:00 AM | | procedure are in the | | | | PST | | results section. | + +--------+ + + + documented in this encounter Results Culture, Urine (10/27/2018 12:00 AM PST) + + | Specimen | + + | Urine specimen | | (specimen) | + + + + + | Narrative | Performed At | + + + | Specimen Description URINE | EXTERNAL LAB | | CULTURE | | | REPORT STATUS | | | 10/30/18 - 100,000 CFU/ML MIXED GROWTH - BACTERIA ISOLATED PROBABLY | | | REPRESENT CONTAMINATING LESLIE | | + + + + +---------+ + + | Performing | Address | City/State/Zipcode | Phone Number | | Organization | | | | + +---------+ + + | EXTERNAL LAB | | | | + +---------+ + + documented in this encounter Visit Diagnoses Not on filedocumented in this encounter"
--- OUTSIDE RECORDS SUMMARY | ~2020-03-25 | XMS | Encounter Summary ---
Demographics + + + | Address | [address] | | | [place] [address] | + + + | Home Phone | | + + + | Preferred Language | Unknown | + + + | Marital Status | Single | + + + | Gnosticist Affiliation | 1013 | + + + | Race | Unknown | + + + | Ethnic Group | Unknown | + + + Author + + + | Author | [facility] | | | and [place] | + + + | Organization | [facility] | | | and [...] Team Providers + +------+ + | Care Shipping Supervisor Name | Role | Phone | + +------+ + | Noe Regan DO | PCP | | + +------+ + Reason for Visit +--------+ + | Reason | Comments | +--------+ + | Other | medication question | +--------+ + Encounter Details +--------+ + + + + | Date | Type | Department | Care Team | Description | +--------+ + + + + | 01/20/ | Telephone | [facility] [place] | Charles Lino MD | Other (medication | | 2015 | | OTOLARYNGOLOGY [address] | [address] | question) | | | | [address] | [address] [place], | | | | | [place], [place] | [place] [address] | | | | | [address] | [phone] | | | | | [phone] | | | +--------+ + + + [...]
--- OUTSIDE RECORDS SUMMARY | ~2020-03-25 | XMS | Encounter Summary ---
Demographics + + + | Address | [address] | | | [place] [address] | + + + | Home Phone | | + + + | Preferred Language | Unknown | + + + | Marital Status | Single | + + + | Taoist Affiliation | 1013 | + + + | Race | Unknown | + + + | Ethnic Group | Unknown | + + + Author + + + | Author | [facility] | | | and Ernesto[place] | + + + | Organization | [facility] | | | and [...] Team Providers + +------+ + | Care Underpresser Hand Name | Role | Phone | [...] [place], | | | | | [place], [place] | [place] [address] | | | | | [address] | [phone] | | | | | [phone] | | | +--------+ + + + [...]
--- OUTSIDE RECORDS SUMMARY | ~2020-03-25 | XMS | Encounter Summary ---
Demographics + + + | Address | [address] | | | [place] [address] | + + + | Home Phone [...] Organization | [facility] | | | and Ernestoana [...] Team Providers + +------+ + | Care Motorcycle Fabricator Name | Role | Phone | + [...] [place], | | | | | [place], [place] | [place] [address] | | | | | [address] | [phone] | | | | | [phone] | | | +--------+ + + + [...]
--- OUTSIDE RECORDS SUMMARY | ~2020-03-25 | XMS | Encounter Summary ---
Demographics + + + | Address | [address] | | | [place] [address] | + + + | Home Phone [...] Organization | [facility] | | | and Ernestoana [...] Team Providers + +------+ + | Care Foiling Machine Operator Name | Role | Phone | [...] [place], | | | | | [place], [place] | [place] [address] | | | | | [address] | [phone] | | | | | [phone] | | | +--------+ + + + [...]
--- OUTSIDE RECORDS SUMMARY | ~2020-03-25 | XMS | Encounter Summary ---
Demographics + + + | Address | [address] | | | [place] [address] | + + + | Home Phone | | + + + | Preferred Language | Unknown | + + + | Marital Status | Single | + + + | Anabaptism Affiliation | 1013 | + + + | Race | Unknown | + + + | Ethnic Group | Unknown | + + + Author + + + | Author | [facility] | | | and [place] | + + + | Organization | [facility] | | | and Ernestoana [...] Team Providers + +------+ + | Care Community Health Advisor Name | Role | Phone | + [...] | | | | | Procedures | [address] | [place] [address] | | | | | NEW PATIENT | Phone: | Phone: | | | | | | [phone] | [phone] | | | | | | Fax: | Fax: | | | | | | [phone] | [phone] | +--------+--------+ + + + + Encounter Details +--------+---------+ + + + | Date | Type | Department | Care Team | Description | +--------+---------+ + + + | 07/21/ | Office | [facility] | Charles Lino MD | Other diseases of | | 2013 | Visit | OTOLARYNGOLOGY [address] | [address] | vocal cords (Primary | | | | [address] | [address] [place], | Dx) | | | | [place] | [place] [address] | | | | | [address] | [phone] | | | | | [phone] | | | +--------+---------+ + + + [...] - 07/21/2014 3:27 PM PDTSee dictation # [id number] signed by Charles Lino MD at 07/21/2014 3:30 PM Charles Henderson MD - 07/21/2014 12:00 AM PDT ENT AND AUDIOLOGY [address] [address] FAX: [phone] OFFICE VISIT The patient had a direct [...] Charles Lino MD / [facility] JOB #: [id number] signed by Charles Lino MD at 07/21/2014 4:48 PM PDTdocumente d in this encounter Plan of Treatment Not on filedocumented as of this encounter Visit Diagnoses + + | Diagnosis | + + | Other diseases of vocal cords - Primary | + + documented in this encounter
--- OUTSIDE RECORDS SUMMARY | ~2020-03-25 | XMS | Encounter Summary ---
Demographics + + + | Address | [address] | | | [place] [address] | + + + | Home Phone | | + + + | Preferred Language | Unknown | + + + | Marital Status | Single | + + + | Restorationism Affiliation | 1013 | + + + | Race | Unknown | + + + | Ethnic Group | Unknown | + + + Author + + + | Author | [facility] | | | and [place]esto[place] | + + + | Organization | [facility] | | | and Ernestoana [...] Team Providers + +------+ + | Care Economics Department Chair Name | Role | Phone [...] + + | 01/05/ | Telephone | [facility] | Charles Lino MD | Referral | | 2015 | | OTOLARYNGOLOGY [address] | [address] | (PreAuthorization) | | | | [address] | [address] [place], | | | | | [place], [place] | [place] [address] | | | | | [address] | [phone] | | | | | [phone] | | | +--------+ + + + [...]
--- OUTSIDE RECORDS SUMMARY | ~2020-03-25 | XMS | Encounter Summary ---
Demographics + + + | Address | [address] | | | [place] [address] | + + + | Home Phone | | + + + | Preferred Language | Unknown | + + + | Marital Status | Single | + + + | Voodoo Affiliation | 1013 | + + + | Race | Unknown | + + + | Ethnic Group | Unknown | + + + Author + + + | Author | [facility] | | | and Ernesto[place] | + + + | Organization | [facility] | | | and Ernestoana | [...] Team Providers + +------+ + | Care Re Examiner Name | Role | Phone | + [...] Otolaryngolog | Diagnoses | Shereen, | Charles Lion | | | | y | hoarseness/ | Noe E, | E, MD [address] | | | | | pcp | DO [address] | | | | | [place]/ pt/ | [address] [place] | [address] | | | | | [place] | [place], [place] | [place], | | | | | Procedures | [address] | [place] [address] | | | | | NEW PATIENT | Phone: | Phone: | | | | | | [phone] | [phone] | | | | | | Fax: | Fax: | | | | | | [phone] | [phone] | +--------+--------+ + + + + Encounter Details +--------+---------+ + + + | Date | Type | Department | Care Team | Description | +--------+---------+ + + + | 12/12/ | Office | [facility] | Charles Lino MD | Conversion disorder | | 2013 | Visit | [address]OLARYNGOLOGY [address] | [address] | (Primary Dx) | | | | [address] | [address] [place], | | | | | [place], [place] | [place] [address] | | | | | [address] | [phone] | | | | | [phone] | | | +--------+---------+ + + + [...] - 10/28/2014 12:05 PM PSTSee dictation # [id number] signed by Charles Lino MD at 10/28/2014 12:10 PM Charles Nath MD - 10/28/2014 12:00 AM PST ENT AND AUDIOLOGY [address] [address] FAX: [phone] OFFICE VISIT HISTORY: The patient had a nodule removed from her vocal cord back about 3 months ago. Her voice was doing very well until about 3 weeks ago when she started to have some raspiness, but more soreness and discomfort. 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 No [...] progres sing normally. Charles Lino MD / [facility] JOB #: [id number] signed by Charles Lino MD at 2014 8:25 AM PSTdocumente d in this encounter Plan of Treatment Not on filedocumented as of this encounter Visit Diagnoses + + | Diagnosis | + + | Conversion disorder - Primary | + + documented in this encounter
--- OUTSIDE RECORDS SUMMARY | ~2020-03-25 | XMS | Encounter Summary ---
Demographics + + + | Address | [address] | | | [place] [address] | + + + | Home Phone | | + + + | Preferred Language | Unknown | + + + | Marital Status | Single | + + + | Holiness Affiliation | 1013 | + + + | Race | Unknown | + + + | Ethnic Group | Unknown | + + + Author + + + | Author | [facility] | | | and [place]esto[place] | + + + | Organization | [facility] | | | and [...] Team Providers + +------+ + | Care Boat Rental Clerk Name | Role | Phone | + +------+ + | Kelly Alfonso | PCP | | | [place] | | | + +------+ + Encounter Details +--------+ + + + + | Date | Type | Department | Care Team | Description | +--------+ + + + + | 10/27/ | Orders Only | [facility] | Bernard Doe, | | | 2017 | | NEPRHOLOGY [place] | ALTERNATIVE FINANCING SPECIALIST [address] | | | | | [address] | [place] | | | | | [address] [place], [place] | [place], [place] | | | | | [address] | [address] | | | | | [phone] | [phone] | | | | | | | [...]
--- OUTSIDE RECORDS SUMMARY | ~2020-03-25 | XMS | Encounter Summary ---
Demographics + + + | Address | [address] | | | [place] [address] | + + + | Home Phone [...] Organization | [facility] | | | and [...] Team Providers + +------+ + | Care Implementation Specialist Payroll Name | Role | Phone | + [...] [place], | | | | | [place], [place] | [place] [address] | | | | | [address] | [phone] | | | | | [phone] | | | +--------+--------+ + + + [...]
--- OUTSIDE RECORDS SUMMARY | ~2020-03-25 | XMS | Encounter Summary ---
Demographics + + + | Address | [address] | | | [place] [address] | + + + | Home Phone | | + + + | Preferred Language | Unknown | + + + | Marital Status | Single | + + + | Latter Day Affiliation | 1013 | + + + | Race | Unknown | + + + | Ethnic Group | Unknown | + + + Author + + + | Author | [facility] | | | and [place]esto[place] | + + + | Organization | [facility] [...] Team Providers + +------+ + | Care Transfer And Pumphouse Operator Name | Role | Phone | [...] Description | +--------+--------+ + + + | 01/10/ | Refill | [facility] [place] | Charles Lino MD | Medication Refill | | 2015 | | OTOLARYNGOLOGY [address] | [address] | | | | | [address] | [address] [place], | | | | | [place], [place] | [place] [address] | | | | | [address] | [phone] | | | | | [phone] | | | +--------+--------+ + + + [...]
--- OUTSIDE RECORDS SUMMARY | ~2020-03-25 | XMS | Encounter Summary ---
Demographics + + + | Address | [address] | | | [place] [address] | + + + | Home Phone | | + + + | Preferred Language | Unknown | + + + | Marital Status | Single | + + + | Congregation Affiliation | 1013 | + + + | Race | Unknown | + + + | Ethnic Group | Unknown | + + + Author + + + | Author | [facility] | | | and [place] | + + + | Organization | [facility] | | | and Ernestoana [...] Team Providers + +------+ + | Care [employer] Teacher Name | Role | Phone | [...] [place], | | | | | [place], [place] | [place] [address] | | | | | [address] | [phone] | | | | | [phone] | | | +--------+ + + + [...]
--- OUTSIDE RECORDS SUMMARY | ~2020-03-25 | XMS | Encounter Summary ---
Demographics + + + | Address | [address] | | | [place] [address] | + + + | Home Phone | | + + + | Preferred Language | Unknown | + + + | Marital Status | Single | + + + | Episcopalian Affiliation | 1013 | + + + | Race | Unknown | + + + | Ethnic Group | Unknown | + + + Author + + + | Author | [facility] | | | and [place] | + + + | Organization | [facility] | | | and Ernesto[place] [...] Team Providers + +------+ + | Care Cloud Operations Engineer Name | Role | Phone | [...] [place], | | | | | [place], [place] | [place] [address] | | | | | [address] | [phone] | | | | | [phone] | | | +--------+--------+ + + + [...]
--- OUTSIDE RECORDS SUMMARY | ~2020-03-25 | XMS | Encounter Summary ---
Demographics + + + | Address | [address] | | | [place] [address] | + + + | Home Phone [...] + + + | Author | [facility] | | | and [place] | + + + | Organization | [facility] | | [...] Team Providers + +------+ + | Care Foreign Service Teacher Name | Role | Phone | [...] [place], | | | | | [place], [place] | [place] [address] | | | | | [address] | [phone] | | | | | [phone] | | | +--------+ + + + [...]
--- OUTSIDE RECORDS SUMMARY | ~2020-03-25 | XMS | Encounter Summary ---
Demographics + + + | Address | [address] | | | [place] [address] | + + + | Home Phone [...] Organization | [facility] | [...] Team Providers + +------+ + | Care Construction Director Name | Role | Phone | + +------+ + | Noe Regan DO | PCP | | + +------+ + Encounter Details +--------+ + + + + | Date | Type | Department | Care Team | Description | +--------+ + + + + | 10/28/ | Hospital | [facility] | Conversion | Spondylolisthesis, | | 2018 | Encounter | [facility] | Transaction, | unspecified spinal | | | | [address] | Provider Unknown | region | | | | [address] [place], [place] | [phone] | | | | | [address] | | | | | | [phone] | | | +--------+ + + + [...]
--- OUTSIDE RECORDS SUMMARY | ~2020-03-25 | XMS | Encounter Summary ---
Demographics + + + | Address | [address] | | | [place] [address] | + + + | Home Phone | | + + + | Preferred Language | Unknown | + + + | Marital Status | Single | + + + | Jainism Affiliation | 1013 | + + + | Race | Unknown | + + + | Ethnic Group | Unknown | + + + Author + + + | Author | [facility] | | | and [place] | + + + | Organization | [facility] | | | and [...] Providers + +------+ + | Care Senior Front End Web Developer Name | Role | Phone | + [...] | MED CTR EXTERNAL | [address] | | | | | IMAGING [address] | [address] | | | | | [place] | [place] [address] | | | | | [place] [address] | | | | | | [phone] | | | +--------+ + + + [...]
--- OUTSIDE RECORDS SUMMARY | ~2020-03-25 | XMS | Encounter Summary ---
Demographics + + + | Address | [address] | | | [place] [address] | + + + | Home Phone | | + + + | Preferred Language | Unknown | + + + | Marital Status | Single | + + + | Oriental Orthodox Affiliation | 1013 | + + + | Race | Unknown | + + + | Ethnic Group | Unknown | + + + Author + + + | Author | [facility] | | | and [place] | + + + | Organization | [facility] | | | and [place] | + + + | Address | Unknown | + + + | Phone | Unavailable | + + + Support + + +---------+ + | Name | Relationship | Address | Phone | + + +---------+ + | Mandie Sinhg | ECON | Unknown | | + + +---------+ + Care Team Providers + +------+ + | Care Marine Pipefitter Name | Role | Phone | + +------+ + | Kelly Alfonso | PCP | | | PA | | | + +------+ + Encounter Details +--------+ + + + + | Date | Type | Department | Care Team | Description | +--------+ + + + + | 01/08/ | Orders Only | [facility] | Conversion | | | 2016 | | NEPHROLOGY [facility] | Transaction, | | | | | [address] | Provider Unknown | | | | | [address] [place] [address] | [phone] | | | | | [address] | | | | | | [phone] | | | +--------+ + + + [...] | EXTERNAL LAB: CBC | Routin | 05/29/2017 | | Results for this | | | e | 9:04 AM | | procedure are in the | | | | PDT | | results section. | + +--------+ + + + | TSH WITH REFLEX | Routin | 05/29/2017 | | Results for this | | | e | 9:04 AM | | procedure are in the | | | | PDT | | results section. | + +--------+ + + + | LIPID PANEL | Routin | 05/29/2017 | | Results for this | | | e | 9:04 AM | | procedure are in the | | | | PDT | | results section. | + +--------+ + + + | URINALYSIS, | Routin | 05/29/2017 | | Results for this | | MICROSCOPIC ONLY | e | 9:04 AM | | procedure are in the | | | | PDT | | results section. | + +--------+ + + + | MICROALBUMIN/CREATIN | Routin | 05/29/2017 | | Results for this | | INE RATIO, URINE | e | 9:04 AM | | procedure are in the | | TEST | | PDT | | results section. | + +--------+ + + + | HEMOGLOBIN A1C | Routin | 05/29/2017 | | Results for this | | | e | 9:04 AM | | procedure are in the | | | | PDT | | results section. | + +--------+ + + + | COMPREHENSIVE | Routin | 05/29/2017 | | Results for this | | METABOLIC PANEL | e | 9:04 AM | | procedure are in the | | | | PDT | | results section. | + +--------+ + + + | EXTERNAL LAB: CBC | Routin | 01/08/2017 | | Results for this | | | e | 5:18 AM | | procedure are in the | | | | PST | | results section. | + +--------+ + + + | PROTIME INR | Routin | 01/08/2017 | | Results for this | | | e | 5:18 AM | | procedure are in the | | | | PST | | results section. | + +--------+ + + + | BASIC METABOLIC | Routin | 01/08/2017 | | Results for this | | PANEL | e | 5:18 AM | | procedure are in the | | | | PST | | results section. | + +--------+ + + + | EXTERNAL LAB: CBC | Routin | 12/31/2016 | | Results for this | | | e | 9:50 AM | | procedure are in the | | | | PST | | results section. | + +--------+ + + + | COMPREHENSIVE | Routin | 12/31/2016 | | Results for this | | METABOLIC PANEL | e | 9:50 AM | | procedure are in the | | | | PST | | results section. | + +--------+ + + + documented in this encounter Results TSH with Reflex (05/29/2017 9:04 AM PDT) + +-------+ + + + | Component | Value | Ref Range | Performed | Pathologist | | | | | At | Signature | + +-------+ + + + | TSH | 2.24 | 0.270 - 4.20 | EXTERNAL | | | | | | LAB | | + +-------+ + + + + + | Specimen | + + | | + + + +---------+ + + | Performing | Address | City/State/Zipcode | Phone Number | | Organization | | | | + +---------+ + + | EXTERNAL LAB | | | | + +---------+ + + Microalbumin/Creatinine Ratio, Urine (05/29/2017 9:04 AM PDT) + + + + + + | Component | Value | Ref Range | Performed | Pathologist | | | | | At | Signature | + + + + + + | ALBUMIN/CRE | 169.1 (A) | 0 - 30 | EXTERNAL [...] + +---------+ + + Urinalysis, Microscopic Only (05/29/2017 9:04 AM PDT) + + + + + + | Component | Value | Ref Range | Performed | Pathologist | | | | | At | Signature | + + + + + + | Color | Lisa | | EXTERNAL | | | | | | LAB | | + + + + + + | Clarity | Turbid | | EXTERNAL | | | | | | LAB | | + + + + + + | Specific | 1.027 | 1.005 - 1.030 | EXTERNAL | | | [place], | | | LAB | | | Urine | | | | | + + + + + + | Leukocyte | 3+Comment: 500 | | EXTERNAL | | | Esterase, [...] + + + + | Protein, | 2+Comment: 75 | | EXTERNAL | | | Urine | | | LAB | | + + + + + + | pH, Urine | 8 | 5 - 9 | EXTERNAL | | | | | | LAB | | + + + + + + | Blood, | PositiveComment: 250 | | EXTERNAL | | | Urine | | | LAB | | + + + + + + | Ketones | 5 | | EXTERNAL | | | | [...] + +---------+ + + External Lab: CBC (05/29/2017 9:04 AM PDT) + +-------+ + + + | Component | Value | Ref Range | Performed | Pathologist | | | | | At | Signature | + +-------+ + + + | WBC | 6.8 | 4.5 - 11.0 10 | EXTERNAL | | | | | | LAB | | + +-------+ + + + | Red Blood | 4.86 | 3.8 - 5.1 10 | EXTERNAL | | | Cells | | | LAB | | | Counted | | | | | + +-------+ + + + | Hemoglobin | 14.4 | 12.0 - 16.0 | EXTERNAL | | | | | g/dL | LAB | | + +-------+ + + + | Hematocrit, | 43.4 | 35 - 45 % | EXTERNAL | | | POC | | | LAB | | + +-------+ + + + | MCV | 89.3 | 81 - 99 fL | EXTERNAL | | | | | | LAB | | + +-------+ + + + | MCH | 30 | 27 - 33 pg | EXTERNAL | | | | | | LAB | | + +-------+ + + + | MCHC | 33 | 30 - 36 g/dL | EXTERNAL | | | | | | LAB | | + +-------+ + + + | Platelet | 266 | 140 - 440 K/ L | EXTERNAL | | | Count | | | LAB | | | Plasma | | | | | + +-------+ + + + | RDW-CV | | % | EXTERNAL | | | | | | LAB | | + +-------+ + + + | MPV | | fL | EXTERNAL | | | | | | LAB | | + +-------+ + + + | Differentia | | | EXTERNAL | | | l Type | | | LAB | | + +-------+ + + + | % Segmented | | % | EXTERNAL | | | | | | LAB | | | Neutrophils | | | | | + +-------+ + + + | % | | % | EXTERNAL | | | Lymphocytes | | | LAB | | + +-------+ + + + | % Monocytes | | % | EXTERNAL | | | | | | LAB | | + +-------+ + + + | % | | % | EXTERNAL | | | Eosinophils | | | LAB | | + +-------+ + + + | % Basophils | | % | EXTERNAL | | | | | | LAB | | + +-------+ + + + | Absolute | | / L | EXTERNAL | | | Segmented | | | LAB | | | Neutrophils | | | | | + +-------+ + + + | Absolute | | / L | EXTERNAL | | | Lymphocytes | | | LAB | | + +-------+ + + + | Absolute | | / L | EXTERNAL | | | Monocytes | | | LAB | | + +-------+ + + + | Absolute | | / L | EXTERNAL | | | Eosinophils | | | LAB | | + +-------+ + + + | Absolute | | [...] | | | + +---------+ + + Hemoglobin A1C (05/29/2017 9:04 AM PDT) + +-------+ + + + | Component | Value | Ref Range | Performed | Pathologist | | | | | At | Signature | + +-------+ + + + | Hemoglobin | 5.7 | % | EXTERNAL | | | A1c | | | LAB | | + +-------+ + + + + + | Specimen | + + | Blood specimen | | (specimen) | + + + +---------+ + + | Performing | Address | City/State/Zipcode | Phone Number | | Organization | | | | + +---------+ + + | EXTERNAL LAB | | | | + +---------+ + + Lipid Panel (05/29/2017 9:04 AM PDT) + +-------+ + + + | Component | Value | Ref Range | Performed | Pathologist | | | | | At | Signature | + +-------+ + + + | Cholesterol | 233 | mg/dL | EXTERNAL | | | | | | LAB | | + +-------+ + + + | Triglycerid | 73 | 30 - 150 mg/dL | EXTERNAL | | | es | | | LAB | | + +-------+ + + + | HDL | 59.7 | mg/dl | EXTERNAL | | | | | | LAB | | + +-------+ + + + | LDL, | 159 | mg/dL | EXTERNAL | | | Calculated | | | LAB | | + +-------+ + + + | LDl/HDL | | | EXTERNAL | | | Ratio | | | LAB | | + +-------+ + + + | Chol/HDL | 3.9 | | EXTERNAL | | | Ratio | | | LAB | | + +-------+ + + + | VLDL | 15 | 4 - 40 mg/dL | EXTERNAL | | | | | | LAB | | + +-------+ + + + | Non HDL | 173 | | EXTERNAL | | | Chol. | | | LAB | | | (LDL+VLDL) | | | | | + +-------+ + + + + + | Specimen | + + | Blood specimen | | (specimen) | + + + +---------+ + + | Performing | Address | City/State/Zipcode | Phone Number | | Organization | | | | + +---------+ + + | EXTERNAL LAB | | | | + +---------+ + + Comprehensive Metabolic Panel (05/29/2017 9:04 AM PDT) + +-------+ + + + | Component | Value | Ref Range | Performed | Pathologist | | | | | At | Signature | + +-------+ + + + | Glucose, | 97 | 70 - 100 mg/dL | EXTERNAL | | | Fasting | | | LAB | | + +-------+ + + + | BUN | 14 | 6 - 23 mg/dL | EXTERNAL | | | | | | LAB | | + +-------+ + + + | Creatinine | 0.64 | 0.60 - 1.35 | EXTERNAL | | | | | mg/dL | LAB | | + +-------+ + + + | BUN/Creatin | 21.9 | 6.0 - 28.6 | EXTERNAL | | | ine Ratio | | | LAB | | + +-------+ + + + | Calcium | 9.0 | 8.4 - 10.2 | EXTERNAL | | | | | mg/dL | LAB | | + +-------+ + + + | Protein, | 6.6 | 6.0 - 8.0 g/dL | EXTERNAL | | | Total | | | LAB | | + +-------+ + + + | Albumin | 3.9 | 3.5 - 5.0 | EXTERNAL | | | | | | LAB | | + +-------+ + + + | Globulin | 2.7 | 1.8 - 3.5 | EXTERNAL | | | | | | LAB | | + +-------+ + + + | A/G Ratio | 1.4 | 1.1 - 2.4 | EXTERNAL | | | | | | LAB | | + +-------+ + + + | Bilirubin | 0.5 | 0.0 - 1.2 mg/dL | EXTERNAL | | | Total | | | LAB | | + +-------+ + + + | ALP, | 105 | 31 - 130 | EXTERNAL | | | External | | | LAB | | + +-------+ + + + | ALT | 27 | 7 - 52 U/L | EXTERNAL | | | | | | LAB | | + +-------+ + + + | AST | 26 | 13 - 39 U/L | EXTERNAL | | | | | | LAB | | + +-------+ + + + | Na | 139 | 132 - 143 | EXTERNAL | | | | | mmol/L | LAB | | + +-------+ + + + | K | 4.2 | 3.6 - 5.1 | EXTERNAL | | | | | mmol/L | LAB | | + +-------+ + + + | Cl | 106 | 95 - 112 mmol/L | EXTERNAL | | | | | | LAB | | + +-------+ + + + | CO2 | 19 | 19 - 31 mmol/L | EXTERNAL | | | | | | LAB | | + +-------+ + + + | Anion Gap | 18.2 | 7 - 21 mmol/L | EXTERNAL | | | | | | LAB | | + +-------+ + + + | Estimated | 99 | mg/dL | EXTERNAL | | | [...] | | | + +---------+ + + Protime INR (01/08/2017 5:18 AM PST) + +-------+ + + + | Component | Value | Ref Range | Performed | Pathologist | | | | | At | Signature | + +-------+ + + + | Prothrombin | 12.7 | 12.1 - 15.3 | EXTERNAL | | | Time | | seconds | LAB | | + +-------+ + + + | INR | 0.9 | | EXTERNAL | | | | [...] + +---------+ + + External Lab: CBC (01/08/2017 5:18 AM PST) + + + + + + | Component | Value | Ref Range | Performed | Pathologist | | | | | At | Signature | + + + + + + | WBC | 13.6 (A) | 4.5 - 11.0 10 | EXTERNAL | | | | | | LAB | | + + + + + + | Red Blood | 4.48 | 3.8 - 5.1 10 | EXTERNAL | | | Cells | | | LAB | | | Counted | | | | | + + + + + + | Hemoglobin | 12.7 | 12.0 - 16.0 | EXTERNAL | | | | | g/dL | LAB | | + + + + + + | Hematocrit, | 39.1 | 35 - 45 % | EXTERNAL | | | POC | | | LAB | | + + + + + + | MCV | 87.4 | 81 - 99 fL | EXTERNAL | | | | | | LAB | | + + + + + + | MCH | 28 | 27 - 33 pg | EXTERNAL | | | | | | LAB | | + + + + + + | MCHC | 32 | 30 - 36 g/dL | EXTERNAL | | | | | | LAB | | + + + + + + | Platelet | 261 | 140 - 440 K/ L | EXTERNAL | | | Count | | | LAB | | | Plasma | | | | | + + + + + + | RDW-CV | | % | EXTERNAL | | [...] | | | + +---------+ + + Basic Metabolic Panel (01/08/2017 5:18 AM PST) + + + + + + | Component | Value | Ref Range | Performed | Pathologist | | | | | At | Signature | + + + + + + | Glucose, | 132 (A) | 70 - 100 mg/dL | EXTERNAL | | | Fasting | | | LAB | | + + + + + + | BUN | 19 | 6 - 23 mg/dL | EXTERNAL | | | | | | LAB | | + + + + + + | Creatinine | 0.59 (A) | 0.60 - 1.35 | EXTERNAL | | | | | mg/dL | LAB | | + + + + + + | BUN/Creatin | 32.2 (A) | 6.0 - 28.6 | EXTERNAL | | | ine Ratio | | | LAB | | + + + + + + | Calcium | 8.8 | 8.4 - 10.2 | EXTERNAL | | | | | mg/dL | LAB | | + + + + + + | Na | 135 | 132 - 143 | EXTERNAL | | | | | mmol/L | LAB | | + + + + + + | K | 4.1 | 3.6 - 5.1 | EXTERNAL | | | | | mmol/L | LAB | | + + + + + + | Cl | 103 | 95 - 112 mmol/L | EXTERNAL | | | | | | LAB | | + + + + + + | CO2 | 24 | 19 - 31 mmol/L | EXTERNAL | | | | | | LAB | | + + + + + + | Anion Gap | 12.1 | 7 - 21 mmol/L | EXTERNAL | | | | | | LAB | | + + + + + + | Estimated | 109 | mg/dL | EXTERNAL | | | [...] + +---------+ + + External Lab: CBC (12/31/2016 9:50 AM PST) + +-------+ + + + | Component | Value | Ref Range | Performed | Pathologist | | | | | At | Signature | + +-------+ + + + | WBC | 5.5 | 4.5 - 11.0 10 | EXTERNAL | | | | | | LAB | | + +-------+ + + + | Red Blood | 4.87 | 3.8 - 5.1 10 | EXTERNAL | | | Cells | | | LAB | | | Counted | | | | | + +-------+ + + + | Hemoglobin | 13.3 | 12.0 - 16.0 | EXTERNAL | | | | | g/dL | LAB | | + +-------+ + + + | Hematocrit, | 41.5 | 35 - 45 % | EXTERNAL | | | POC | | | LAB | | + +-------+ + + + | MCV | 85.2 | 81 - 99 fL | EXTERNAL | | | | | | LAB | | + +-------+ + + + | MCH | 27 | 27 - 33 pg | EXTERNAL | | | | | | LAB | | + +-------+ + + + | MCHC | 32 | 30 - 36 g/dL | EXTERNAL | | | | | | LAB | | + +-------+ + + + | Platelet | 283 | 140 - 440 K/ L | EXTERNAL | | | Count | | | LAB | | | Plasma | | | | | + +-------+ + + + | RDW-CV | | % | EXTERNAL | | | | | | LAB | | + +-------+ + + + | MPV | | fL | EXTERNAL | | | | | | LAB | | + +-------+ + + + | Differentia | | | EXTERNAL | | | l Type | | | LAB | | + +-------+ + + + | % Segmented | | % | EXTERNAL | | | | | | LAB | | | Neutrophils | | | | | + +-------+ + + + | % | | % | EXTERNAL | | | Lymphocytes | | | LAB | | + +-------+ + + + | % Monocytes | | % | EXTERNAL | | | | | | LAB | | + +-------+ + + + | % | | % | EXTERNAL | | | Eosinophils | | | LAB | | + +-------+ + + + | % Basophils | | % | EXTERNAL | | | | | | LAB | | + +-------+ + + + | Absolute | | / L | EXTERNAL | | | Segmented | | | LAB | | | Neutrophils | | | | | + +-------+ + + + | Absolute | | / L | EXTERNAL | | | Lymphocytes | | | LAB | | + +-------+ + + + | Absolute | | / L | EXTERNAL | | | Monocytes | | | LAB | | + +-------+ + + + | Absolute | | / L | EXTERNAL | | | Eosinophils | | | LAB | | + +-------+ + + + | Absolute | | [...] | | | + +---------+ + + Comprehensive Metabolic Panel (12/31/2016 9:50 AM PST) + +---------+ + + + | Component | Value | Ref Range | Performed | Pathologist | | | | | At | Signature | + +---------+ + + + | Glucose, | 107 (A) | 70 - 100 mg/dL | EXTERNAL | | | Fasting | | | LAB | | + +---------+ + + + | BUN | 16 | 6 - 23 mg/dL | EXTERNAL | | | | | | LAB | | + +---------+ + + + | Creatinine | 0.61 | 0.60 - 1.35 | EXTERNAL | | | | | mg/dL | LAB | | + +---------+ + + + | BUN/Creatin | 26.2 | 6.0 - 28.6 | EXTERNAL | | | ine Ratio | | | LAB | | + +---------+ + + + | Calcium | 8.8 | 8.4 - 10.2 | EXTERNAL | | | | | mg/dL | LAB | | + +---------+ + + + | Protein, | 7.0 | 6.0 - 8.0 g/dL | EXTERNAL | | | Total | | | LAB | | + +---------+ + + + | Albumin | 4.0 | 3.5 - 5.0 | EXTERNAL | | | | | | LAB | | + +---------+ + + + | Globulin | 3.0 | 1.8 - 3.5 | EXTERNAL | | | | | | LAB | | + +---------+ + + + | A/G Ratio | 1.3 | 1.1 - 2.4 | EXTERNAL | | | | | | LAB | | + +---------+ + + + | Bilirubin | 0.3 | 0.0 - 1.2 mg/dL | EXTERNAL | | | Total | | | LAB | | + +---------+ + + + | ALP, | 90 | 31 - 130 | EXTERNAL | | | External | | | LAB | | + +---------+ + + + | ALT | 23 | 7 - 52 U/L | EXTERNAL | | | | | | LAB | | + +---------+ + + + | AST | 21 | 13 - 39 U/L | EXTERNAL [...] +---------+ + + + | Cl | 102 | 95 - 112 mmol/L | EXTERNAL | | | | | | LAB | | + +---------+ + + + | CO2 | 23 | 19 - 31 mmol/L | EXTERNAL | | | | | | LAB | | + +---------+ + + + | Anion Gap | 12.9 | 7 - 21 mmol/L | EXTERNAL | | | | | | LAB | | + +---------+ + + + | Estimated | 105 | mg/dL | EXTERNAL | | | [...]
--- OUTSIDE RECORDS SUMMARY | ~2020-03-25 | XMS | Encounter Summary ---
Demographics + + + | Address | [address] | | | [place] [address] | + + + | Home Phone [...] Organization | [facility] | | | and [place] [...] Team Providers + +------+ + | Care Foundation Drill Operator Helper Name | Role | Phone | + [...] | | | | | Procedures | [address] | [place] [address] | | | | | NEW PATIENT | Phone: | Phone: | | | | | | [phone] | [phone] | | | | | | Fax: | Fax: | | | | | | [phone] | [phone] | +--------+--------+ + + + + Encounter [...] | | | [place] | [place] [address] | | | | | [address] | [phone] | | | | | [phone] | | | +--------+---------+ + + + [...] MD - 06/13/2014 5:21 PM PDTSee dictation #[id number] signed by Gumaro Lino MD at 06/13/2014 5:27 PM Charles Henderson MD - 06/13/2014 12:00 AM PDT ENT AND AUDIOLOGY [address] [address] FAX: [phone] OFFICE VISIT NEW PATIENT VISIT HISTORY: The [...] Charles Lino MD / [place] JOB #: [id number] signed by Charles Lino MD at 06/14/2014 7:55 AM PDTdocumentarmand more in this encounter Plan of Treatment Not on filedocumented as of this encounter Visit Diagnoses + + | Diagnosis | + + | Other diseases of vocal cords - Primary | + + | Dysphonia | + + documented in this encounter
--- OUTSIDE RECORDS SUMMARY | ~2020-03-25 | XMS | Encounter Summary ---
Demographics + + + | Address | [address] | | | [place] [address] | + + + | Home Phone [...] | Organization | [facility] | | | and [...] Team Providers + +------+ + | Care Sales Performance Manager Name | Role | Phone | [...] Description | +--------+--------+ + + + | 01/16/ | Refill | [facility] [place] | Charles Lino MD | Medication Refill | | 2014 | | OTOLARYNGOLOGY [address] | [address] | | | | | [address] | [address], | | | | | [place], [place] | [place] [address] | | | | | [address] | [phone] | | | | | [phone] | | | +--------+--------+ + + + [...]
--- OUTSIDE RECORDS SUMMARY | ~2020-03-25 | XMS | Encounter Summary ---
Demographics + + + | Address | [address] | | | [place] [address] | + + + | Home Phone | | + + + | Preferred Language | Unknown | + + + | Marital Status | Single | + + + | Denominational Affiliation | 1013 | + + + | Race | Unknown | + + + | Ethnic Group | Unknown | + + + Author + + + | Author | [facility] | | | and [place] | + + + | Organization | [facility] [...] Team Providers + +------+ + | Care Credit Risk Officer Name | Role | Phone | + +------+ + | Kelly Alfonso | PCP | | | PA | | | + +------+ + Encounter Details +--------+ + + + + | Date | Type | Department | Care Team | Description | +--------+ + + + + | 09/09/ | Orders Only | [facility] | Bernard Doe, | | | 2016 | | NEPHROLOGY [place] | [facility] [address] | | | | | [address] | [address] | | | | | [address] [place] | [place] | | | | | [address] | [address] | | | | | [phone] | | | | | | | [...] | EXTERNAL LAB: CBC | Routin | 09/09/2017 | | Results for this | | | e | 9:14 AM | | procedure are in the | | | | PDT | | results section. | + +--------+ + + + | URINALYSIS WITH | Routin | 09/09/2017 | | Results for this | | MICROSCOPIC IF | e | 9:14 AM | | procedure are in the | | INDICATED | | PDT | | results section. | + +--------+ + + + | PROTEIN/CREATININE | Routin | 09/09/2017 | | Results for this | | RATIO, URINE | e | 9:14 AM | | procedure are in the | | | | PDT | | results section. | + +--------+ + + + | URIC ACID | Routin | 09/09/2017 | | Results for this | | | e | 9:14 AM | | procedure are in the | | | | PDT | | results section. | + +--------+ + + + | MAGNESIUM | Routin | 09/09/2017 | | Results for this | | | e | 9:14 AM | | procedure are in the | | | | PDT | | results section. | + +--------+ + + + | BASIC METABOLIC | Routin | 09/09/2017 | | Results for this | | PANEL | e | 9:14 AM | | procedure are in the | | | | PDT | | results section. | + +--------+ + + + documented in this encounter Results Protein/Creatinine Ratio, Urine (09/09/2017 9:14 AM PDT) + + + + + + | Component | Value | Ref Range | Performed | Pathologist | | | | | At | Signature | + + + + + + | Protein/Cre | 381.4 (A) | 0 - 150 | EXTERNAL [...] + + Urinalysis with Microscopic if Indicated (09/09/2017 9:14 AM PDT) + + + + + [...] + + + | Spec Grav, | 1.014 | 1.005 - 1.030 | EXTERNAL | [...] + + + | Blood, | Comment: 50 | | EXTERNAL | | | Urine [...] + +---------+ + + External Lab: CBC (09/09/2017 9:14 AM PDT) + + + + + [...] + + + | Red Blood | 4.73 | 3.8 - 5.1 10 | EXTERNAL | | | Cells | | | LAB | | | Counted | | | | | + + + + + + | Hemoglobin | 13.8 | 12.0 - 16.0 | EXTERNAL | | | | | g/dL | LAB | | + + + + + + | Hematocrit, | 41.7 | 35 - 45 % | EXTERNAL | | | POC | | | LAB | | + + + + + + | MCV | 88.3 | 81 - 99 fL | EXTERNAL [...] + + + + | Platelet | 305 | 140 - 440 K/ L | EXTERNAL | | | Count | | | LAB | | | Plasma | | | | | + + + + + + | RDW-CV | 15.7 (A) | 10.5 - 15.0 % | [...] | + +---------+ + + Uric Acid (09/09/2017 9:14 AM PDT) + +-------+ + + + | Component | Value | Ref Range | Performed | Pathologist | | | | | At | Signature | + +-------+ + + + | Uric Acid | 5.4 | 2.3 - 6.6 | EXTERNAL | [...] | | + +---------+ + + Magnesium (09/09/2017 9:14 AM PDT) + +-------+ + + + | Component | Value | Ref Range | Performed | Pathologist | | | | | At | Signature | + +-------+ + + + | Magnesium | 2.0 | 1.7 - 2.5 mg/dL | EXTERNAL [...] + +---------+ + + Basic Metabolic Panel (09/09/2017 9:14 AM PDT) + +-------+ + + + | Component | Value | Ref Range | Performed | Pathologist | | | | | At | Signature | + +-------+ + + + | Glucose, | 92 | 70 - 100 mg/dL | EXTERNAL | | | Fasting | | | LAB | | + +-------+ + + + | BUN | 11 | 6 - 23 mg/dL | EXTERNAL | | | | | | LAB | | + +-------+ + + + | Creatinine | 0.67 | 0.60 - 1.35 | EXTERNAL | | | | | mg/dL | LAB | | + +-------+ + + + | BUN/Creatin | 16.4 | 6.0 - 28.6 | EXTERNAL | | | ine Ratio | | | LAB | | + +-------+ + + + | Calcium | 9.3 | 8.4 - 10.2 | EXTERNAL | | | | | mg/dL | LAB | | + +-------+ + + + | Na | 141 | 132 - 143 | EXTERNAL | | | | | mmol/L | LAB | | + +-------+ + + + | K | 4.2 | 3.6 - 5.1 | EXTERNAL | | | | | mmol/L | LAB | | + +-------+ + + + | Cl | 103 [...] +-------+ + + + | Estimated | 94 | mg/dL | EXTERNAL | | | [...]
--- OUTSIDE RECORDS SUMMARY | ~2020-03-25 | XMS | Encounter Summary ---
Demographics + + + | Address | [address] | | | [place] [address] | + + + | Home Phone [...] + + + | Author | [facility] | | | and [place] | + + + | Organization | [facility] | | | and [...] Team Providers + +------+ + | Care Gear Milling Machine Set Up Operator Name | Role | Phone | + +------+ + | Kelly Alfonso | PCP | | | PA | | | + +------+ + Encounter Details +--------+ + + + + | Date | Type | Department | Care Team | Description | +--------+ + + + + | 12/02/ | Orders Only | [facility] | Konrad Raphael MD | | | 2017 | | NEPHROLOGY [place] | [address] | | | | | [address] | [address] [place], [place] | | | | | [address] [place], [place] | [address] | | | | | [address] | | | | | | [phone] | | | +--------+ + + + [...] | | | LAB | | | [facility] | | | | | + + [...]
--- OUTSIDE RECORDS SUMMARY | ~2020-03-25 | XMS | Encounter Summary ---
Demographics + + + | Address | [address] | | | [place] [address] | + + + | Home Phone | | + + + | Preferred Language | Unknown | + + + | Marital Status | Single | + + + | Zoroastrianism Affiliation | 1013 | + + + | Race | Unknown | + + + | Ethnic Group | Unknown | + + + Author + + + | Author | [facility] | | | and [place] | + + + | Organization | [facility] | | | and Ernestoana [...] Team Providers + +------+ + | Care School [employer] Director Name | Role | Phone | [...] | MED CTR EXTERNAL | [address] | | | | | IM[address]ING [address] | [address] | | | | | [place] | [place] [address] | | | | | [place] [address] | | | | | | [phone] | | | +--------+ + + + [...]
--- OUTSIDE RECORDS SUMMARY | ~2020-03-25 | XMS | Clinical Summary ---
Demographics + + + | Address | [address] | | | [place] [address] | + + + | Home Phone | | + + + | Preferred Language | Unknown | + + + | Marital Status | Single | + + + | Sabianism Affiliation | 1013 | + + + | Race | Unknown | + + + | Ethnic Group | Unknown | + + + Author + + + | Author | [facility] | | | and [place] | + + + | Organization | [facility] | | | and [place]estoana [...] Team Providers + +------+ + | Care Dry Finisher Name | Role | Phone | + [...] | | + +--------+ +--------+ +---------+------+ | [facility] | PHP | [phone] | 12/18/19 | [phone] | | PPO [...] Person | Self | [birth year]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
--- OUTSIDE RECORDS SUMMARY | ~2020-03-25 | XMS | Encounter Summary ---
Demographics + + + | Address | [address] | | | [place] [address] | + + + | Home Phone [...] + | Organization | [facility] | [...] Team Providers + +------+ + | Care Cone Baker Machine Name | Role | Phone | + +------+ + | Noe Regan DO | PCP | | + +------+ + Encounter Details +--------+ + + + + | Date | Type | Department | Care Team | Description | +--------+ + + + + | 06/10/ | Abstract | [facility] [place] | Charles Lino MD | | | 2013 | | OTOLARYNGOLOGY [address] | [address] | | | | | [address] | [address] [place], | | | | | [place] | [place] [address] | | | | | [address] | [phone] | | | | | [phone] | | | +--------+ + + + + Social History + +-------+ +--------+------+ | Tobacco Use | Types | Packs/Day | Years | Date | | | | | Used | | + +-------+ +--------+------+ | Current Every Day | | | | | | Smoker | | | [...]
--- OUTSIDE RECORDS SUMMARY | ~2020-03-25 | XMS | Encounter Summary ---
Demographics + + + | Address | [address] | | | [place] [address] | + + + | Home Phone [...] | [facility] | | | and Ernestoana [...] Team Providers + +------+ + | Care Wrapper Opener Name | Role | Phone | + [...] + + | 01/05/ | Telephone | [facility] | Charles Lino MD | Referral | | 2015 | | OTOLARYNGOLOGY [address] | [address] | (PreAuthorization) | | | | [address] | [address] [place], | | | | | [place], [place] | [place] [address] | | | | | [address] | [phone] | | | | | [phone] | | | +--------+ + + + [...]
--- OUTSIDE RECORDS SUMMARY | ~2020-03-25 | XMS | Encounter Summary ---
Demographics + + + | Address | [address] | | | [place] [address] | + + + | Home Phone [...] Organization | [facility] | | | and Ernestoana [...] Team Providers + +------+ + | Care Gig Tender Name | Role | Phone | [...] | | | | [place], [place] | [place], [place] | | | | | | [address] | [address] | | | | | | Phone: | Phone: | | | | | | [phone] | [phone] | | | | | | Fax: | Fax: | | | | | | [phone] | [phone] | +--------+ + + + + + [...] [place], | | | | | [place], [place] | [place] [address] | | | | | [address] | [phone] | | | | | [phone] | | | +--------+ + + + [...]
--- OUTSIDE RECORDS SUMMARY | ~2020-03-25 | XMS | Encounter Summary ---
Demographics + + + | Address | [address] | | | [place] [address] | + + + | Home Phone | | + + + | Preferred Language | Unknown | + + + | Marital Status | Single | + + + | Baptism Affiliation | 1013 | + + + | Race | Unknown | + + + | Ethnic Group | Unknown | + + + Author + + + | Author | [facility] | | | and [place] | + + + | Organization | [facility] | [...] Team Providers + +------+ + | Care Toll Line Repairer Name | Role | Phone | + [...] | | | | [place], [place] | [place], [place] | | | | | | [address] | [address] | | | | | | Phone: | Phone: | | | | | | [phone] | [phone] | | | | | | Fax: | Fax: | | | | | | [phone] | [phone] | +--------+ + + + + + [...] [place], | | | | | [place], [place] | [place] [address] | | | | | [address] | [phone] | | | | | [phone] | | | +--------+ + + + [...]
--- OUTSIDE RECORDS SUMMARY | ~2020-03-25 | XMS | Clinical Summary ---
Demographics + + + | Address | [address] | | | [place] [address] | + + + | Home Phone | | + + + | Preferred Language | Unknown | + + + | Marital Status | Unknown | + + + | Latter-Day Affiliation | Unknown | + + + | Race | Unknown | + + + | Ethnic Group | Unknown | + + + Author + + + | Author | [facility] (Historical as of | | | 07-03-19) | + + + | Organization | [facility] (Historical as of | | | 07-03-19) | + + + | Address | Unknown | + + + | Phone | Unavailable | + + + Support + + + + + | Name | Relationship | Address | Phone | + + + + + | Shay Singh | ECON | Unknown | | + + + + + | No,Contact | ECON | [address] | | | | | [place] | | | | | [address] | | + + + + + Care Team Providers + +------+ + | Care Blocking Machine Operator Name | Role | Phone | + +------+ + | Kelly Alfonso | PP | | + +------+ + Allergies + + + + + + | Active Allergy | Reactions | Severity | Noted | Comments | | | | | Date | | + + + + + + | Adhesive Tape | Other (See Comments) | Medium | 10/28/20 | Blisters | | | | | 18 | | + + + + + + | Oxycodone-Acetaminop | Nausea and Vomiting | Low | 10/21/20 | | | hen | | | 18 | | + + + + + + Current Medications + + +--------+---------+------+------+-------+ | Prescription | Sig. | Disp. | Refills | Star | End | Statu | | | | | | t | Date | s | | | | | | Date | | | + + +--------+---------+------+------+-------+ | | Take 1 tablet by | | | | | Activ | | losartan-hydrochloro | mouth daily. | | | | | e | | thiazide (HYZAAR) | | | | | | | | 100-25 MG per tablet | | | | | | | + + +--------+---------+------+------+-------+ | warfarin | Take 5 mg by mouth | | | | | Activ | | (COUMADIN) 7.5 MG | daily. | | | | | e | | tablet | | | | | | | + + +--------+---------+------+------+-------+ | amLODIPine | Take 10 mg by mouth | | | | | Activ | | (NORVASC) 10 MG | daily. | | | | | e | | tablet | | | | | | | + + +--------+---------+------+------+-------+ | omeprazole | Take 20 mg by mouth | | | | | Activ | | (PRILOSEC) 20 MG | every morning before | | | | | e | | capsule | breakfast. | | | | | | + + +--------+---------+------+------+-------+ | spironolactone | Take 1 tablet by | 90 | 3 | 04/18 | | Activ | | (ALDACTONE) 100 MG | mouth daily. | tablet | | 08/06 | | e | | tabletIndications: | | | | 18 | | | | Proteinuria, | | | | | | | | unspecified type | | | | | | | + + +--------+---------+------+------+-------+ | cetirizine | Take 10 mg by mouth. | | | | | Activ | | (ZYRTEC) 10 MG | | | | | | e | | tablet | | | | | | | + + +--------+---------+------+------+-------+ | cyclobenzaprine | Take 10 mg by mouth | | | | | Activ | | (FLEXERIL) 10 MG | 3 (three) times | | | | | e | | tablet | daily as needed for | | | | | | | | Muscle spasms. | | | | | | + + +--------+---------+------+------+-------+ | gabapentin | Take 1,200 mg by | | | | | Activ | | (NEURONTIN) 100 MG | mouth daily. | | | | | e | | capsule | | | | | | | + + +--------+---------+------+------+-------+ | predniSONE | | | | 09/ | | Activ | | (DELTASONE) 20 MG | | | | 20 | | e | | tablet | | | | 18 | | | + + +--------+---------+------+------+-------+ Active Problems + + + | Problem | Noted Date | + + + | Mobile - Spondylolisthesis of lumbar region | 10/28/2018 | + + + | Lumbar radiculopathy | 10/28/2018 | + + + | DDD (degenerative disc disease), lumbar | 10/28/2018 | + + + | Low back pain | 10/28/2018 | + + + | Facet arthropathy | 10/28/2018 | + + + | Hypertension | 05/15/2018 | + + + | Proteinuria | 09/15/2017 | + + + | Class 2 obesity in adult | 09/15/2017 | + + + | Alcohol abuse | 09/15/2017 | + + + | Tobacco abuse | 09/15/2017 | + + + | Stress incontinence of urine | 09/15/2017 | + + + | History of Coumadin therapy | 09/15/2017 | + + + | History of DVT (deep vein thrombosis) | 09/15/2017 | + + + Family History + + +------+ + | Medical History | Relation | Name | Comments | + + +------+ + | Cancer | Cousin | | | + + +------+ + | Cancer | Father | | Skin | + + +------+ + | Diabetes | Maternal | | | | | Grandmoth | | | | | er | | | + + +------+ + | Cancer | Mother | | | + + +------+ + | Hypertension | Mother | | | + + +------+ + | Leukemia | Mother | | | + + +------+ + | Breast cancer | Paternal | | | | | Aunt | | | + + +------+ + + +------+ + + | Relation | Name | Status | Comments | + +------+ + + | Cousin | | | | + +------+ + + | Father | | | | + +------+ + + | Maternal Grandmother | | | | + +------+ + + | Mother | | | | + +------+ + + | Paternal Aunt | | | | + +------+ + + Social History + +-------+ +--------+ + | Tobacco Use | Types | Packs/Day | Years | Date | | | | | Used | | + +-------+ +--------+ + | Former Smoker | | 1 | | Quit: 09/30/2017 | + +-------+ +--------+ + + +---+---+---+ | Smokeless Tobacco: | | | | | Never Used | | | | + +---+---+---+ + + +---------+ + | Alcohol Use | Drinks/We | oz/Week | Comments | | | ek | | | + + +---------+ + | Yes | 18 | 10.8 | Daily | | | Standard | | | | | drinks or | | | | | | | | | | equivalen | | | | | t | | | + + +---------+ + + + + | Sex Assigned at | Date Recorded | | | | + + + | Not on file | | + + + Last Filed Vital Signs + + + + | Vital Sign | Reading | Time Taken | + + + + | Blood Pressure | 94/62 | 10/30/2018 11:19 AM PST | + + + + | Pulse | 80 | 10/30/2018 11:19 AM PST | + + + + | Temperature | 36.5 C (97.7 F) | 05/15/2018 10:00 AM PDT | + + + + | Respiratory Rate | - | - | + + + + | Oxygen Saturation | 97% | 10/30/2018 11:19 AM PST | + + + + | Inhaled Oxygen | - | - | | Concentration | | | + + + + | Weight | 113.9 kg (251 lb 3.2 | 10/30/2018 11:19 AM PST | | | oz) | | + + + + | Height | 170.2 cm (5' 7") | 10/30/2018 11:19 AM PST | + + + + | Body Mass Index | 39.34 | 10/30/2018 11:19 AM PST | + + + + Plan of Treatment + + + + + | Health Maintenance | Due Date | Last Done | Comments | + + + + + | Vaccine: | | | | | Dtap/Tdap/Td (1 - | 8 | | | | Tdap) | | | | + + + + + | Vaccine: | | | | | Pneumococcal 19-64 | 8 | | | | (PPSV23 only) Medium | | | | | Risk (1 of 1 - | | | | | PPSV23) | | | | + + + + + | Cervical Cancer | | | | | Screening (Pap) | 9 | | | + + + + + | Breast Cancer | | | | | Screening | 9 | | | | (Mammogram) | | | | + + + + + | Colon Cancer | | | | | Screening [...] filefrom Last 3 Months Insurance + +--------+ +------+-------+ + | Payer | Benefi | Subscriber | Type | Phone | Address | | | t Plan | ID | | | | | | / | | | | | | | Group | | | | | + +--------+ +------+-------+ + | [facility] | PROVID | [id number] | PPO | | | | PLAN | ENCE | | | | | | | HEALTH | | | | | | | PLAN | | | | | + +--------+ +------+-------+ + | MEDICAID | [place] | [id number] | | | [address] | | | N | | | | [place], [place] | | | [place] | | | | [address] | | | DIRECTOR OF ADMISSIONS | | | | | + +--------+ +------+-------+ + + +--------+ +--------+ + + | Guarantor Name | Accoun | Relation to | Date | Phone | Billing Address | | | t Type | Patient | of | | | | | | | | | | + +--------+ +--------+ + + | YAMILA YEAGER | Person | Self [birth year] | 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
--- OUTSIDE RECORDS SUMMARY | ~2020-03-25 | XMS | Encounter Summary ---
Demographics + + + | Address | [address] | | | [place] [address] | + + + | Home Phone | | + + + | Preferred Language | Unknown | + + + | Marital Status | Single | + + + | Confucianist Affiliation | 1013 | + + + | Race | Unknown | + + + | Ethnic Group | Unknown | + + + Author + + + | Author | [facility] | | | and [place] | + + + | Organization | [facility] | | | and [...] Team Providers + +------+ + | Care Landscape Designer Name | Role | Phone | + [...] | Procedures | [place] | [place] [address] | | | | | [place] | [address] | Phone: | | | | | LARYNGOSCOPY | Phone: | [phone] | | | | | ,DIRCT,OP | [phone] | Fax: | | | | | SCOP,EXC | Fax: | [phone] | | | | | TUMR | [phone] | | +--------+ + + + + [...] | | | | [place] | [place] [address] | | | | | [address] | [phone] | | | | | [phone] | | | +--------+ + + + [...]
--- OUTSIDE RECORDS SUMMARY | ~2020-03-25 | XMS | Encounter Summary ---
Demographics + + + | Address | [address] | | | [place] [address] | + + + | Home Phone | | + + + | Preferred Language | Unknown | + + + | Marital Status | Single | + + + | Christianity Affiliation | 1013 | + + + | Race | Unknown | + + + | Ethnic Group | Unknown | + + + Author + + + | Author | [facility] | | | and Ernesto[place] | + + + | Organization | [facility] [...] Team Providers + +------+ + | Care Interlibrary Loan Specialist Name | Role | Phone | [...] | MED CTR EXTERNAL | [address] | | | | | [address] | [place] | | | | | [place] | [place] [address] | | | | | [place] [address] | | | | | | [phone] | | | +--------+ + + + [...] MRI KNEE RIGHT WO | Routin | 12/25/2012 | | Results for this | | CONTRAST | e | 4:05 PM | | procedure are in the | | | | PST | | results section. | + +--------+ + + + documented in this encounter Results MRI Knee Right wo Contrast (12/25/2012 4:05 PM PST) + + | Specimen | [...]
--- OUTSIDE RECORDS SUMMARY | ~2020-03-25 | XMS | Encounter Summary ---
Demographics + + + | Address | [address] | | | [place] [address] | + + + | Home Phone | | + + + | Preferred Language | Unknown | + + + | Marital Status | Single | + + + | Jainism Affiliation | 1013 | + + + | Race | Unknown | + + + | Ethnic Group | Unknown | + + + Author + + + | Author | [facility] and Services Etienne | | | and Ernestoana | + + + | Organization | [facility] and [facility] Etienne | | | and Ernestoana | [...] Team Providers + +------+ + | Care Harvester Operator Name | Role | Phone | [...] [place], | | | | | [place], [place] | [place] [address] | | | | | [address] | [phone] | | | | | [phone] | | | +--------+--------+ + + + [...]
--- OUTSIDE RECORDS SUMMARY | ~2020-03-25 | XMS | Encounter Summary ---
Demographics + + + | Address | [address] | | | [place] [address] | + + + | Home Phone [...] Organization | [facility] Etienne | | | and [...] Team Providers + +------+ + | Care Sprinkler Helper Name | Role | Phone | [...] | | | | | Procedures | [address] | [place] [address] | | | | | NEW PATIENT | Phone: | Phone: | | | | | | [phone] | [phone] | | | | | | Fax: | Fax: | | | | | | [phone] | [phone] | +--------+--------+ + + + + Encounter Details +--------+---------+ + + + | Date | Type | Department | Care Team | Description | +--------+---------+ + + + | 07/21/ | Office | [facility] | Charles Lino MD | Other diseases of | | 2013 | Visit | OTOLARYNGOLOGY [address] | [address] | vocal cords (Primary | | | | [address] | [address] [place], | Dx) | | | | [place] | [place] [address] | | | | | [address] | [phone] | | | | | [phone] | | | +--------+---------+ + + + [...] - 07/21/2014 3:27 PM PDTSee dictation # [id number] signed by Charles Lino MD at 07/21/2014 3:30 PM Charles Henderson MD - 07/21/2014 12:00 AM PDT ENT AND AUDIOLOGY [address] [address] FAX: [phone] OFFICE VISIT The patient had a direct [...] Charles Lino MD / MINA JOB #: [id number] signed by Charles Lino MD at 07/21/2014 4:48 PM PDTdocumente d in this encounter Plan of Treatment Not on filedocumented as of this encounter Visit Diagnoses + + | Diagnosis | + + | Other diseases of vocal cords - Primary | + + documented in this encounter
--- OUTSIDE RECORDS SUMMARY | ~2020-03-25 | XMS | Encounter Summary ---
Demographics + + + | Address | [address] | | | [place] [address] | + + + | Home Phone [...] Organization | [facility] Etienne | | [...] Team Providers + +------+ + | Care Visual Effects Artist Name | Role | Phone | [...] [place] | | | | | | [place], | [address] Phone: | | | | | | [place] | [phone] | | | | | | [address] | Fax: | | | | | | Phone: | [phone] | | | | | | [phone] | | | | | | | Fax: | | | | | | | [phone] | | +--------+--------+ + + + + [...] | [place], [place] | [place] [address] | | | | | [address] | [phone] | | | | | [phone] | | | +--------+---------+ + + + [...] of the procedure you must provide a certified driver examiner to take you home. For all [...] medicines, take them as directed. You may rwubwws-kcp-kzsjyfe pain medicine to control pain, unless another [...] in the groin area Date Last Reviewed: 03/17/201819998021-0067 [employer]. [address] [place] [address]. All righ ts reserved. This information is not intended as a substitute for professional medical care. Always follow your healthcare professional's instructions. documented in this encounter Progress Notes Eugenio Herrera PA-C - 03/15/2019 9:20 AM PDTFormatting of this note might be different fro m the original. 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 The cranial nerves appear grossly intact. [...] or ankles. 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 Unfortunately Yamila willett continues to have significant discomfort. It appears to me that the pain is primarily com ing from SI JOINTS. I did feel that Yamila Yeager would be a good candidate for interventional procedures and I offered a LEFT SI INJECTION to be done. POSITIVE EXAM FINDINGS: + [place]'s test, + Thigh thrust test, + Gaenslan's [...]
--- OUTSIDE RECORDS SUMMARY | ~2020-03-25 | XMS | Encounter Summary ---
Demographics + + + | Address | [address] | | | [place] [address] | + + + | Home Phone [...] + | Organization | [facility] | | | and [...] Team Providers + +------+ + | Care Wet Press Tender Name | Role | Phone | [...] [place], | | | | | [place], [place] | [place] [address] | | | | | [address] | [phone] | | | | | [phone] | | | +--------+ + + + [...]
--- OUTSIDE RECORDS SUMMARY | ~2020-03-25 | XMS | Encounter Summary ---
Demographics + + + | Address | [address] | | | [place] [address] | + + + | Home Phone [...] | Organization | [facility] | | | and [...] Team Providers + +------+ + | Care Terra Cotta Setter Name | Role | Phone | [...] [place], | | | | | [place], [place] | [place] [address] | | | | | [address] | [phone] | | | | | [phone] | | | +--------+--------+ + + + [...]
--- OUTSIDE RECORDS SUMMARY | ~2020-03-25 | XMS | Encounter Summary ---
Demographics + + + | Address | [address] | | | [place] [address] | + + + | Home Phone [...] + + + | Author | [facility] and Services [facility] | | | and Ernestoana | + + + | Organization | [facility] Etienne | | | and Ernestoana [...] Team Providers + +------+ + | Care Boiler Reliner Name | Role | Phone | + [...] | MED CTR EXTERNAL | MD [address] | | | | | IMAGING [address] | [address] | | | | | [place] | [place] [address] | | | | | [place] [address] | | | | | | [phone] | | | +--------+ + + + [...]
--- OUTSIDE RECORDS SUMMARY | ~2020-03-25 | XMS | Encounter Summary ---
Demographics + + + | Address | [address] | | | [place] [address] | + + + | Home Phone [...] + + + | Author | [facility] and [facility] | | | and Ernestoana | + + + | Organization | [facility] | | | [...] Team Providers + +------+ + | Care Pattern Hand Name | Role | Phone | [...] | MED CTR EXTERNAL | MD [address] | | | | | IMAGING [address] | [address] | | | | | [place] | [place] [address] | | | | | [place] [address] | | | | | | [phone] | | | +--------+ + + + [...]
--- OUTSIDE RECORDS SUMMARY | ~2020-03-25 | XMS | Encounter Summary ---
Demographics + + + | Address | [address] | | | [place] [address] | + + + | Home Phone | | + + + | Preferred Language | Unknown | + + + | Marital Status | Single | + + + | Rastafarian Affiliation | 1013 | + + + | Race | Unknown | + + + | Ethnic Group | Unknown | + + + Author + + + | Author | [facility] and [facility] | | | and Ernestoana | + + + | Organization | [facility] | | | and [...] Team Providers + +------+ + | Care Knot Tying Operator Name | Role | Phone | [...] | | | [place] | [place] [address] | | | | | [address] | [phone] | | | | | [phone] | | | +--------+ + + + [...]
--- OUTSIDE RECORDS SUMMARY | ~2020-03-25 | XMS | Encounter Summary ---
Demographics + + + | Address | [address] | | | [place] [address] | + + + | Home Phone [...] + + + | Author | [facility] and [facility] | | | and Ernestoana | + + + | Organization | [facility] | | | [...] Providers + +------+ + | Care Sales Agent Business Services Name | Role | Phone | + [...] [place], | | | | | [place], [place] | [place] [address] | | | | | [address] | [phone] | | | | | [phone] | | | +--------+--------+ + + + [...]
--- OUTSIDE RECORDS SUMMARY | ~2020-03-25 | XMS | Encounter Summary ---
Demographics + + + | Address | [address] | | | [place] [address] | + + + | Home Phone [...] Author + + + | Author | [facility] and [facility] | | | and Ernestoana | + + + | Organization | [facility] | | | and Ernestoana [...] Team Providers + +------+ + | Care Negative Notcher Name | Role | Phone | + [...] | | | | Procedures | | [place] [address] | | | | | OFFICE | | Phone: | | | | | VISIT | | [phone] | | | | | REGULAR | | Fax: | | | | | | | [phone] | +--------+--------+ + + + + Encounter Details +--------+---------+ + + + | Date | Type | Department | Care Team | Description | +--------+---------+ + + + | 11/25/ | Office | [facility] | Charles Rivas MD | Dysphonia (Primary | | 2015 | Visit | OTOLARYNGOLOGY [address] | [address] | Dx) | | | | [address] | [address] [place], | | | | | [place], [place] | [place] [address] | | | | | [address] | [phone] | | | | | [phone] | | | +--------+---------+ + + + [...] MD - 11/25/2014 12:11 PM PST [facility] OTOLARYNGOLOGY [address] [facility] [address] OFFICE NOTE CHARLES RIVAS MD Patient: YAMILA YEAGER Admitting: MR #: [id number] LOC: PT TYPE: Adm Date: 11/25/2014 : [...] 12:11:46 Transcribed on 11/25/2014 12:30:21 by job# [id number] Confirmation #: [id number] cc: BINDU CALLE DO [facility], Charles Alvarez MD - 11/25/2014 12:08 PM PSTSee dictation # [id number] signed by Charles Rivas MD at 11/25/2014 12:12 PM PSTdocumented in th is encounter Plan of Treatment Not on filedocumented as of this encounter Visit Diagnoses + + | Diagnosis | + + | Dysphonia - Primary | + + documented in this encounter
--- OUTSIDE RECORDS SUMMARY | ~2020-03-25 | XMS | Encounter Summary ---
Demographics + + + | Address | [address] | | | [place] [address] | + + + | Home Phone | | + + + | Preferred Language | Unknown | + + + | Marital Status | Single | + + + | Uatsdin Affiliation | 1013 | + + + | Race | Unknown | + + + | Ethnic Group | Unknown | + + + Author + + + | Author | [facility] | | | and Ernestoana | + + + | Organization | [facility] [...] Team Providers + +------+ + | Care Permit Technician Name | Role | Phone | [...] [place], | | | | | [place], [place] | [place] [address] | | | | | [address] | [phone] | | | | | [phone] | | | +--------+--------+ + + + [...]
--- OUTSIDE RECORDS SUMMARY | ~2020-03-25 | XMS | Encounter Summary ---
Demographics + + + | Address | [address] | | | [place] [address] | + + + | Home Phone | | + + + | Preferred Language | Unknown | + + + | Marital Status | Single | + + + | Faith Affiliation | 1013 | + + + | Race | Unknown | + + + | Ethnic Group | Unknown | + + + Author + + + | Author | [facility] | | | and Ernestoana | + + + | Organization | [facility] | | | and [...] Providers + +------+ + | Care Director Of Field Coordination Name | Role | Phone | + [...] | | | | | Procedures | [address] | [place] [address] | | | | | NEW PATIENT | Phone: | Phone: | | | | | | [phone] | [phone] | | | | | | Fax: | Fax: | | | | | | [phone] | [phone] | +--------+--------+ + + + + Encounter Details +--------+---------+ + + + | Date | Type | Department | Care Team | Description | +--------+---------+ + + + | 12/12/ | Office | [facility] | Charles Lino MD | Conversion disorder | | 2013 | Visit | OTOLARYNGOLOGY [address] | [address] | (Primary Dx) | | | | [address] | [address] [place], | | | | | [place], [place] | [place] [address] | | | | | [address] | [phone] | | | | | [phone] | | | +--------+---------+ + + + [...] - 10/28/2014 12:05 PM PSTSee dictation # [id number] signed by Charles Lino MD at 10/28/2014 12:10 PM Charles Nath MD - 10/28/2014 12:00 AM PST ENT AND AUDIOLOGY [address] [address] FAX: [phone] OFFICE VISIT HISTORY: The patient had a nodule removed from her vocal cord back about 3 months ago. Her voice was doing very well until about 3 weeks ago when she started to have some raspiness, but more soreness and discomfort. 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 No [...] progres sing normally. Charles Lino MD / [facility] JOB #: [id number] signed by Charles Lino MD at 2014 8:25 AM PSTdocumente d in this encounter Plan of Treatment Not on filedocumented as of this encounter Visit Diagnoses + + | Diagnosis | + + | Conversion disorder - Primary | + + documented in this encounter
--- OUTSIDE RECORDS SUMMARY | ~2020-03-25 | XMS | Encounter Summary ---
Demographics + + + | Address | [address] | | | [place] [address] | + + + | Home Phone [...] + + + | Author | [facility] | | | and Ernestoana | + + + | Organization | [facility] | [...] Team Providers + +------+ + | Care Special Services Agent Name | Role | Phone | + +------+ + | Kelly Alfonso | PCP | | | PA | | | + +------+ + Encounter Details +--------+ + + + + | Date | Type | Department | Care Team | Description | +--------+ + + + + | 05/12/ | Orders Only | [facility] | Bernard Doe, | | | 2017 | | NEPRHOLOGY [place] | STOCK OR DELIVERY CLERK [address] | | | | | [address] | [address] | | | | | [address] [place], [place] | [place], [place] | | | | | [address] | [address] | | | | | [phone] | [phone] | | | | | | | [...] | | | LAB | | | [facility] | | | | | + +-------+ [...]
--- OUTSIDE RECORDS SUMMARY | ~2020-03-25 | XMS | Encounter Summary ---
Demographics + + + | Address | [address] | | | [place] [address] | + + + | Home Phone [...] Author | [facility] | | | and Ernestoana | + + + | Organization | [facility] | | | and Ernestoana | + + + | Address | Unknown | + + + | Phone | Unavailable | + + + Support + + +---------+ + | Name | Relationship | Address | Phone | + + +---------+ + | Mnadie Singh | ECON | Unknown | | + + +---------+ + Care Team Providers + +------+ + | Care Wire Brush Operator Name | Role | Phone | [...] | MED CTR EXTERNAL | [address] | | | | | IMAGING [address] | [address] | | | | | [place] | [place] [address] | | | | | [place] [address] | | | | | | [phone] | | | +--------+ + + + [...]
--- OUTSIDE RECORDS SUMMARY | ~2020-03-25 | XMS | Encounter Summary ---
Demographics + + + | Address | [address] | | | [place] [address] | + + + | Home Phone | | + + + | Preferred Language | Unknown | + + + | Marital Status | Single | + + + | Denominational Affiliation | 1013 | + + + | Race | Unknown | + + + | Ethnic Group | Unknown | + + + Author + + + | Author | [facility] | | | and Ernestoana | + + + | Organization | [facility] | | [...] Team Providers + +------+ + | Care Physiological Chemist Name | Role | Phone | + +------+ + | Kelly Alfonso | PCP | | | PA | | | + +------+ + Encounter Details +--------+ + + + + | Date | Type | Department | Care Team | Description | +--------+ + + + + | 01/08/ | Orders Only | [facility] | Conversion | | | 2016 | | NEPHROLOGY [place] | Transaction, | | | | | [address] | Provider Unknown | | | | | [address] [place] | [phone] | | | | | [address] | | | | | | [phone] | | | +--------+ + + + [...] 1.030 | EXTERNAL | | | [place], | | | LAB | | | [...]
--- OUTSIDE RECORDS SUMMARY | ~2020-03-25 | XMS | Encounter Summary ---
Demographics + + + | Address | [address] | | | [place] [address] | + + + | Home Phone [...] | Organization | [facility] | | | and [...] Team Providers + +------+ + | Care Composer Teaching Artist Name | Role | Phone | [...] [place], | | | | | [place], [place] | [place] [address] | | | | | [address] | [phone] | | | | | [phone] | | | +--------+--------+ + + + [...]
--- OUTSIDE RECORDS SUMMARY | ~2020-03-25 | XMS | Encounter Summary ---
Demographics + + + | Address | [address] | | | [place] [address] | + + + | Home Phone | | + + + | Preferred Language | Unknown | + + + | Marital Status | Single | + + + | Mandaen Affiliation | 1013 | + + + | Race | Unknown | + + + | Ethnic Group | Unknown | + + + Author + + + | Author | [facility] | | | and Ernestoana | + + + | Organization | [facility] | | | and [...] Team Providers + +------+ + | Care Batch Mixer Operator Name | Role | Phone | [...] | [place], [place] | [place] [address] | | | | | [address] | [phone] | | | | | [phone] | | | +--------+ + + + [...]
--- OUTSIDE RECORDS SUMMARY | ~2020-03-25 | XMS | Clinical Summary ---
Demographics + + + | Address | [address] | | | [place] [address] | + + + | Home Phone | | + + + | Preferred Language | Unknown | + + + | Marital Status | Single | + + + | Church Affiliation | 1013 | + + + | Race | Unknown | + + + | Ethnic Group | Unknown | + + + Author + + + | Author | [facility] | | | and Ernestoana | + + + | Organization | [facility] [...] Team Providers + +------+ + | Care Powder Expert Name | Role | Phone | + [...] | | + +--------+ +--------+ +---------+------+ | [facility] | PHP | [phone] | 12/18/19 | [phone] | | PPO [...] Person | Self | [birth year] | | [address] | | | al/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
--- OUTSIDE RECORDS SUMMARY | ~2020-03-25 | XMS | Clinical Summary ---
Demographics + + + | Address | [address] | | | [place] [address] | + + + | Home Phone | | + + + | Preferred Language | Unknown | + + + | Marital Status | Unknown | + + + | Baptism Affiliation | Unknown | + + + | Race | Unknown | + + + | Ethnic Group | Unknown | + + + Author + + + | Author | [facility] [employer] (Historical as of | | | 07-03-19) | + + + | Organization | [facility] [employer] (Historical as of | | | 07-03-19) [...] + + | No,Contact | ECON | [address] | | | | | [place] | | | | | [address] | | + + + + + Care Team Providers + +------+ + | Care Loom Fixer Name | Role | Phone | + [...] + | [facility] | PROVID | [id number] | PPO | | | | PLAN | ENCE | | | | | | | HEALTH | | | | | | | PLAN | | | | | + +--------+ +------+-------+ + | MEDICAID | [place] | [id number] | | | [address] | | | N | | | | [place], [place] | | | [place] | | | | [address] | | | 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
--- OUTSIDE RECORDS SUMMARY | ~2020-03-25 | XMS | Encounter Summary ---
Demographics + + + | Address | [address] | | | [place] [address] | + + + | Home Phone | | + + + | Preferred Language | Unknown | + + + | Marital Status | Single | + + + | Voodoo Affiliation | 1013 | + + + | Race | Unknown | + + + | Ethnic Group | Unknown | + + + Author + + + | Author | [facility] | | | and Ernestoana | + + + | Organization | [facility] | | | and [...] Providers + +------+ + | Care Director Operations Name | Role | Phone | + [...] | | | [place], | [address] | | | | | Sacroiliitis | Marcelo Willett MD | Hemal Recio, | | | | | (HCC) | [address] | [place] | | | | | Procedures | [place] | [address] | | | | | CO INJECT SI | [place], [place] | Phone: | | | | | JOINT | [address] | [phone] | | | | | ARTHRGRPHY&/ | Phone: | Fax: | | | | | ANES/STEROID | [phone] | [phone] | | | | | W/IMAGE CO | Fax: | | | | | | | [phone] | | | | | | TRIAMCINOLON [...] + + | 04/22/ | Hospital | [facility] | Eugenio Herrera, | Sacroiliitis (HCC) | | 2019 | Encounter | MED CTR XRAY [address] | PA-C [address] | | | | | [address] [place] | [address] [place] | | | | | [place] [address] | [place] [address] | | | | | [phone] | [phone] | | | | | | | | | | | | Child Welfare Worker, [facility] | | | | | | [...] | | | | | Intra-articular, ONCE, [facility] 04/22/19 | | PM PDT | | [...] PDT | | | | | ONCE, [facility] 04/22/19 at 1230, For 1 | | | | | | | dose, Shake well. Not for IV | | | | | | | use., | | | | | | + +-------+ +-------+---+---+ +---+---+ | | | +---+---+ documented in this encounter"
--- OUTSIDE RECORDS SUMMARY | ~2020-03-25 | XMS | Encounter Summary ---
Demographics + + + | Address | [address] | | | [place] [address] | + + + | Home Phone [...] | [facility] | | [...] Team Providers + +------+ + | Care Label Cutter Name | Role | Phone | [...] | MED CTR EXTERNAL | MD [address] | | | | | IMAGING [address] | [address] | | | | | [place] | [place] [address] | | | | | [place] [address] | | | | | | [phone] | | | +--------+ + + + [...]
--- OUTSIDE RECORDS SUMMARY | ~2020-03-25 | XMS | Encounter Summary ---
Demographics + + + | Address | [address] | | | [place] [address] | + + + | Home Phone [...] Organization | [facility] | | | and [...] Team Providers + +------+ + | Care Garage Construction Equipment Mechanic Name | Role | Phone | + [...] | MED CTR EXTERNAL | [address] | | | | | IMAGING [address] | [address] | | | | | [place] | [place] [address] | | | | | [place] [address] | | | | | | [phone] | | | +--------+ + + + [...]
--- OUTSIDE RECORDS SUMMARY | ~2020-03-25 | XMS | Encounter Summary ---
Demographics + + + | Address | [address] | | | [place] [address] | + + + | Home Phone | | + + + | Preferred Language | Unknown | + + + | Marital Status | Single | + + + | Mormon Affiliation | 1013 | + + + | Race | Unknown | + + + | Ethnic Group | Unknown | + + + Author + + + | Author | [facility] | | | and Ernestoana | + + + | Organization | [facility] | | | and Ernestoana [...] Team Providers + +------+ + | Care Central Supply Clerk Name | Role | Phone | + +------+ + | Kelly Alfonso | PCP | | | PA | | | + +------+ + Encounter Details +--------+ + + + + | Date | Type | Department | Care Team | Description | +--------+ + + + + | 10/27/ | Orders Only | [facility] | Bernard Doe, | | | 2017 | | NEPRHOLOGY [place] | HUMAN RESOURCES COMPENSATION ANALYST [address] | | | | | [address] | [address] | | | | | [address] [place], [place] | [place] | | | | | [address] | [address] | | | | | [phone] | [phone] | | | | | | | [...] | | | LAB | | | [place] | | | | | + + [...]
--- OUTSIDE RECORDS SUMMARY | ~2020-03-25 | XMS | Encounter Summary ---
Demographics + + + | Address | [address] | | | [place] [address] | + + + | Home Phone [...] | Organization | [facility] | | | and [...] Providers + +------+ + | Care Industrial Gas Servicer Supervisor Name | Role | Phone | [...] | | | [place], | [address] | | | | | Sacroiliitis | Marcelo Willett MD | Hemal Recio, | | | | | (HCC) | [address] | [place] | | | | | Procedures | [place] | [address] | | | | | [place] INJECT SI | [place], [place] | Phone: | | | | | JOINT | [address] | [phone] | | | | | ARTHRGRPHY&/ | Phone: | Fax: | | | | | ANES/STEROID | [phone] | [phone] | | | | | W/IMAGE [place] | Fax: | | | | | | | [phone] | | | | | | TRIAMCINOLON [...] + + | 04/22/ | Hospital | [facility] | Eugenio Herrera, | Sacroiliitis (HCC) | | 2019 | Encounter | MED CTR XRAY [address] | PA-C [address] | | | | | [place] | [address] [place] | | | | | [place] [address] | [place] [address] | | | | | [phone] | [phone] | | | | | | | | | | | | Horse Trekking Guide, [facility] | | | | | | [...] | | | Intra-articular, ONCE, [facility] 04/22/19 | | PM PDT | [...] | | | | ONCE, [facility] 04/22/19 at 1230, For 1 | | | | | | | dose, Shake well. Not for IV | | | | | | | use., | | | | | | + +-------+ +-------+---+---+ +---+---+ | | | +---+---+ documented in this encounter"
--- OUTSIDE RECORDS SUMMARY | ~2020-03-25 | XMS | Encounter Summary ---
Demographics + + + | Address | [address] | | | [place] [address] | + + + | Home Phone | | + + + | Preferred Language | Unknown | + + + | Marital Status | Single | + + + | Restorationist Affiliation | 1013 | + + + | Race | Unknown | + + + | Ethnic Group | Unknown | + + + Author + + + | Author | [facility] | | | and [place]esto[place] | + + + | Organization | [facility] | | | and [...] Team Providers + +------+ + | Care Nailer Hand Name | Role | Phone | [...] [place], | | | | | [place], [place] | [place] [address] | | | | | [address] | [phone] | | | | | [phone] | | | +--------+ + + + [...]
--- OUTSIDE RECORDS SUMMARY | ~2020-03-25 | XMS | Encounter Summary ---
Demographics + + + | Address | [address] | | | [place] [address] | + + + | Home Phone [...] | Loc[facility] Within [facility] | | | and Ernestoana [...] Team Providers + +------+ + | Care Room Service Runner Name | Role | Phone | + +------+ + | Kelly Alfonso | PCP | | | PA | | | + +------+ + Encounter Details +--------+ + + + + | Date | Type | Department | Care Team | Description | +--------+ + + + + | 09/24/ | Orders Only | [facility] | Conversion | | | 2017 | | NEPRHOLOGY NIMESH | Transaction, | | | | | [address] | Provider Unknown | | | | | [facility] [place] | [phone] | | | | | [address] | | | | | | [phone] | | | +--------+ + + + [...]
--- OUTSIDE RECORDS SUMMARY | ~2020-03-25 | XMS | Encounter Summary ---
Demographics + + + | Address | [address] | | | [place] [address] | + + + | Home Phone [...] Organization | [facility] | | [...] Providers + +------+ + | Care Supervisor Pipeline Name | Role | Phone | + [...] | | | | | | | [place] | | | | | | | [...] + + | 07/12/ | Anesthesia | [facility] | Kolby Benoit | | | 2013 | Event | MED CTR OR INTRA OP | MD Willie [address] | | | | | [address] | [address] [place] | | | | | [place] | [address] | | | | | [address] | | | | | | [phone] | | | +--------+ + + + [...]
--- OUTSIDE RECORDS SUMMARY | ~2020-03-25 | XMS | Encounter Summary ---
Demographics + + + | Address | [address] | | | [place] [address] | + + + | Home Phone [...] | [facility] | | [...] Team Providers + +------+ + | Care Collaborative Teacher Name | Role | Phone | + +------+ + | Kelly Alfonso | PCP | | | PA | | | + +------+ + Encounter Details +--------+ + + + + | Date | Type | Department | Care Team | Description | +--------+ + + + + | 05/26/ | Orders Only | [facility] | Conversion | | | 2018 | | NEPRHOLOGY NIMESH | Transaction, | | | | | [address] | Provider Unknown | | | | | [address] [place] | [phone] | | | | | [address] | | | | | | [phone] | | | +--------+ + + + [...]
--- OUTSIDE RECORDS SUMMARY | ~2020-03-25 | XMS | Encounter Summary ---
Demographics + + + | Address | [address] | | | [place] [address] | + + + | Home Phone [...] + + + | Author | [facility] | | | and Ernestoana | + + + | Organization | [facility] | | [...] Team Providers + +------+ + | Care Pediatric Medical Assistant Name | Role | Phone | [...] + + | 07/13/ | Telephone | [facility] [place] | Charles Lino MD | Neck Pain (throat, | | 2013 | | OTOLARYNGOLOGY [address] | [address] | post op) | | | | [address] | [address] [place], | | | | | [place], [place] | [place] [address] | | | | | [address] | [phone] | | | | | [phone] | | | +--------+ + + + [...]
--- OUTSIDE RECORDS SUMMARY | ~2020-03-25 | XMS | Encounter Summary ---
Demographics + + + | Address | [address] | | | [place] [address] | + + + | Home Phone | | + + + | Preferred Language | Unknown | + + + | Marital Status | Single | + + + | Pentecostal Affiliation | 1013 | + + + | Race | Unknown | + + + | Ethnic Group | Unknown | + + + Author + + + | Author | [facility] | | | and Ernesto[place] | + + + | Organization | [facility] | | | and [...] Providers + +------+ + | Care Assistant Men'S Soccer Coach Name | Role | Phone | + [...] [place], | | | | | [place], [place] | [place] [address] | | | | | [address] | [phone] | | | | | [phone] | | | +--------+--------+ + + + [...]
--- OUTSIDE RECORDS SUMMARY | ~2020-03-25 | XMS | Encounter Summary ---
Demographics + + + | Address | [address] | | | [place] [address] | + + + | Home Phone | | + + + | Preferred Language | Unknown | + + + | Marital Status | Single | + + + | Congregational Affiliation | 1013 | + + + | Race | Unknown | + + + | Ethnic Group | Unknown | + + + Author + + + | Author | [facility] | | | and [place]esto[place] | + + + | Organization | [facility] | | | and Ernestoana [...] Team Providers + +------+ + | Care Software Architect Name | Role | Phone | + [...] [place], | | | | | [place], [place] | [place] [address] | | | | | [address] | [phone] | | | | | [phone] | | | +--------+ + + + [...]
--- OUTSIDE RECORDS SUMMARY | ~2020-03-25 | XMS | Encounter Summary ---
Demographics + + + | Address | [address] | | | [place] [address] | + + + | Home Phone | | + + + | Preferred Language | Unknown | + + + | Marital Status | Single | + + + | Quaker Affiliation | 1013 | + + + | Race | Unknown | + + + | Ethnic Group | Unknown | + + + Author + + + | Author | [facility] | | | and [place]esto[place] | + + + | Organization | [facility] | | [...] Team Providers + +------+ + | Care Nascar Racer Name | Role | Phone | + +------+ + | Kelly Alfonso | PCP | | | PA | | | + +------+ + Encounter Details +--------+ + + + + | Date | Type | Department | Care Team | Description | +--------+ + + + + | 09/09/ | Orders Only | [facility] | Bernard Doe, | | | 2016 | | NEPHROLOGY BARBIE | RN NEONATAL ICU [address] | | | | | [address] | [address] | | | | | [address] | [place] | | | | | [address] | [address] | | | | | [phone] | [phone] | | | | | | | [...]
--- OUTSIDE RECORDS SUMMARY | ~2020-03-25 | XMS | Encounter Summary ---
Demographics + + + | Address | [address] | | | [place] [address] | + + + | Home Phone | | + + + | Preferred Language | Unknown | + + + | Marital Status | Single | + + + | Advent Affiliation | 1013 | + + + | Race | Unknown | + + + | Ethnic Group | Unknown | + + + Author + + + | Author | [facility] | | | and Ernestoana | + + + | Organization | [facility] | | | and Ernestoana | [...] Team Providers + +------+ + | Care Redipper Name | Role | Phone | + +------+ + | Noe Regan DO | PCP | | + +------+ + Encounter Details +--------+ + + + + | Date | Type | Department | Care Team | Description | +--------+ + + + + | 10/28/ | Hospital | [facility] | Conversion | Spondylolisthesis, | | 2018 | Encounter | [facility] | Transaction, | unspecified spinal | | | | [address] | Provider Unknown | region | | | | [address] [place], [place] | [phone] | | | | | [address] | | | | | | [phone] | | | +--------+ + + + [...]
--- OUTSIDE RECORDS SUMMARY | ~2020-03-25 | XMS | Encounter Summary ---
Demographics + + + | Address | [address] | | | [place] [address] | + + + | Home Phone [...] | Organization | [facility] | | | and Ernestoana [...] Providers + +------+ + | Care Head Irrigator Name | Role | Phone | + [...] [place], | | | | | [place], [place] | [place] [address] | | | | | [address] | [phone] | | | | | [phone] | | | +--------+--------+ + + + [...]
--- OUTSIDE RECORDS SUMMARY | ~2020-03-25 | XMS | Encounter Summary ---
Demographics + + + | Address | [address] | | | [place] [address] | + + + | Home Phone [...] + | Organization | [facility] | | | and [...] Team Providers + +------+ + | Care Surface Hydrologist Name | Role | Phone | + +------+ + | Kelly Alfonso | PCP | | | PA | | | + +------+ + Encounter Details +--------+ + + + + | Date | Type | Department | Care Team | Description | +--------+ + + + + | 10/07/ | Orders Only | [facility] | Conversion | | | 2016 | | NEPRHOLOGY NIMESH | Transaction, | | | | | [address] | Provider Unknown | | | | | [address] [facility] [place] [facility] [place] | [phone] | | | | | [address] | | | | | | [phone] | | | +--------+ + + + [...]
--- OUTSIDE RECORDS SUMMARY | ~2020-03-25 | XMS | Encounter Summary ---
Demographics + + + | Address | [address] | | | [place] [address] | + + + | Home Phone [...] + + | Author | [facility] | | | and Ernestoana | + + + | Organization | [facility] | | | and [...] Team Providers + +------+ + | Care Inside Sales Coordinator Name | Role | Phone | [...] | MED CTR EXTERNAL | MD [address] | | | | | IMAGING [address] | [address] | | | | | [place] | [place] [address] | | | | | [place] [address] | | | | | | [phone] | | | +--------+ + + + [...]
--- OUTSIDE RECORDS SUMMARY | ~2020-03-25 | XMS | Encounter Summary ---
Demographics + + + | Address | [address] | | | [place] [address] | + + + | Home Phone [...] + + + | Author | [facility] | | | and Ernestoana | + + + | Organization | [facility] | [...] Team Providers + +------+ + | Care Rake Operator Name | Role | Phone | [...] [place], | | | | | [place], [place] | [place] [address] | | | | | [address] | [phone] | | | | | [phone] | | | +--------+--------+ + + + [...]
--- OUTSIDE RECORDS SUMMARY | ~2020-03-25 | XMS | Encounter Summary ---
Demographics + + + | Address | [address] | | | [place] [address] | + + + | Home Phone [...] + + + | Organization | [facility] | [...] Team Providers + +------+ + | Care Robotics Technologist Name | Role | Phone | + +------+ + | Kelly Alfonso | PCP | | | PA | | | + +------+ + Encounter Details +--------+ + + + + | Date | Type | Department | Care Team | Description | +--------+ + + + + | 10/27/ | Orders Only | [facility] | Conversion | | | 2018 | | NEPRHOLOGY NIMESH | Transaction, | | | | | [address] | Provider Unknown | | | | | [address] [place] | [phone] | | | | | [address] | | | | | | [phone] | | | +--------+ + + + [...]
--- OUTSIDE RECORDS SUMMARY | ~2020-03-25 | XMS | Encounter Summary ---
Demographics + + + | Address | [address] | | | [place] [address] | + + + | Home Phone [...] | Organization | [facility] | | | and [...] Team Providers + +------+ + | Care Haul Driver Name | Role | Phone | [...] + + | 07/12/ | Surgery | [facility] | Charles Lino MD | DIRECT | | 2013 | | MED CTR OR INTRA OP | [address] | MICROLARYNGOSCOPY W/ | | | | [address] | [address] [place], | EXCISION OF LEFT | | | | [place], [place] | [place] [address] | VOCAL CORD GROWTH | | | | [address] | [phone] | | | | | [phone] | | | +--------+---------+ + + + [...]
--- OUTSIDE RECORDS SUMMARY | ~2020-03-25 | XMS | Encounter Summary ---
Demographics + + + | Address | [address] | | | [place] [address] | + + + | Home Phone [...] Organization | [facility] | | | and [...] Team Providers + +------+ + | Care Grinding Room Supervisor Name | Role | Phone | + +------+ + | Noe Regan DO | PCP | | + +------+ + Encounter Details +--------+ + + + + | Date | Type | Department | Care Team | Description | +--------+ + + + + | 10/13/ | Hospital | [facility] | Conversion | Pain | | 2018 | Encounter | CONVERSION DEP [address] | Transaction, | | | | | [address] | Provider Unknown | | | | | [place] | [phone] | | | | | [address] | | | | | | [phone] | | | +--------+ + + + [...]
--- OUTSIDE RECORDS SUMMARY | ~2020-03-25 | XMS | Encounter Summary ---
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
--- OUTSIDE RECORDS SUMMARY | ~2020-03-25 | XMS | Encounter Summary ---
Demographics + + + | Address | [address] | | | [place] [address] | + + + | Home Phone [...] + | Organization | [facility] | | [...] Team Providers + +------+ + | Care Glass Glazier Name | Role | Phone | + [...] [place] | | | | | | [place], | [address] Phone: | | | | | | [place] | [phone] | | | | | | [address] | Fax: | | | | | | Phone: | [phone] | | | | | | [phone] | | | | | | | Fax: | | | | | | | [phone] | | +--------+--------+ + + + + [...] | [place], [place] | [place] [address] | | | | | [address] | [phone] | | | | | [phone] | | | +--------+---------+ + + + [...] of the procedure you must provide a recycle driver to take you home. For all [...] medicines, take them as directed. You may [id number] pain medicine to control pain, unless another [...] in the groin area Date Last Reviewed: 03/17/201819991223-0523 [employer] [place] [address]. All righ ts reserved. This information is not intended as a substitute for professional medical care. Always follow your healthcare professional's instructions. documented in this encounter Progress Notes Eugenio Herrera PA-C - 03/15/2019 9:20 AM PDTFormatting of this note might be different fro m the original. 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 The cranial nerves appear grossly intact. [...] or ankles. 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 Unfortunately Yamila willett continues to have significant discomfort. It appears to me that the pain is primarily com ing from SI JOINTS. I did feel that Yamila Yeager would be a good candidate for interventional procedures and I offered a LEFT SI INJECTION to be done. POSITIVE EXAM FINDINGS: + Dexter's test, + Thigh thrust test, + Gaenslan's [...]
--- OUTSIDE RECORDS SUMMARY | ~2020-03-25 | XMS | Encounter Summary ---
Demographics + + + | Address | [address] | | | [place] [address] | + + + | Home Phone | | + + + | Preferred Language | Unknown | + + + | Marital Status | Single | + + + | Hoahaoism Affiliation | 1013 | + + + | Race | Unknown | + + + | Ethnic Group | Unknown | + + + Author + + + | Author | [facility] | | | and [place]esto[place] | + + + | Organization | [facility] | [...] Team Providers + +------+ + | Care Sheet Rocker Name | Role | Phone | + +------+ + | Kelly Alfonso | PCP | | | PA | | | + +------+ + Encounter Details +--------+ + + + + | Date | Type | Department | Care Team | Description | +--------+ + + + + | 05/26/ | Orders Only | [facility] | Conversion | | | 2018 | | NEPRHOLOGY [place] | Transaction, | | | | | [address] | Provider Unknown | | | | | [address] [place] | [phone] | | | | | [address] | | | | | | [phone] | | | +--------+ + + + [...]
--- OUTSIDE RECORDS SUMMARY | 2020-03-25 20:22 | XMS ---
PreManage Notification: OMEGA SHEETS Security Chief Nuclear Medicine Technologist Events No recent Security Events currently on file CRITERIA MET - [facility] - 2 Visits in 30 Days CARE PROVIDERS DUGLAS CAMPOS Physician Accounting Assistant 05/31/2019-Current PHONE: Unknown Gilmer has no Care Guidelines for this patient. EJinny VISIT COUNT (12 MO.) 3 [facility] TOTAL 3 NOTE: Visits indicate total known visits. ED/UCC VISIT TRACKING (12 MO.) 03/25/2020 20:19 [facility] TYPE: Emergency COMPLAINT: - NOSE BLEED 03/25/2020 08:34 [facility] TYPE: Emergency COMPLAINT: - BLOODY NOSE 05/30/2019 15:21 [facility] TYPE: Emergency COMPLAINT: - URINE PROBLEM DIAGNOSES: - Dysuria - Personal history of nicotine dependence - Cystitis, unspecified without hematuria - Essential (primary) hypertension - Acquired absence of other specified parts of digestive tract - Other longterm (current) drug therapy INPATIENT VISIT TRACKING (12 MO.) 01/25/2020 05:40 [facility] TYPE: Medical Surgical COMPLAINT: - RIGHT KNEE ARTHROPLASTY DIAGNOSES: - Other reduced mobility - Morbid (severe) obesity due to excess calories - termite control representative (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 - Personal history of nicotine dependence - Other acute postprocedural pain - alf (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 - Anxiety disorder, unspecified - Unilateral primary osteoarthritis, right knee - Personal history of pulmonary embolism - Other acute postprocedural pain - Personal history of nicotine dependence - Personal history of other venous thrombosis and embolism - Essential (primary) hypertension - Morbid (severe) obesity due to excess calories - Chronic pain syndrome - Other longterm (current) drug therapy - Body mass index (BMI) 40.0-44.9, adult - Essential (primary) hypertension - Personal history of pulmonary embolism - Other extermination supervisor (current) drug therapy - Personal history of other venous thrombosis and embolism - Anxiety disorder, unspecified - Other reduced mobility - Chronic pain syndrome - Unilateral primary osteoarthritis, right knee - Gastro-esophageal reflux disease without esophagitis [email or web address]
[2020-03-28] MEDS ORDERED: COUMADIN5 MG PO (08:10)
== END 2020-03-25 21:34 | disposition home or self-care (01) ==
LOC: ED 20:19
DX: R04.0 Epistaxis (principal); I10 Essential (primary) hypertension; Z87.891 Personal history of nicotine dependence; Z79.899 Other long term (current) drug therapy
CPT/HCPCS: 99283

== ENCOUNTER 2020-08-18 13:46 | Emergency (ER) | payer OTHER | END 2020-08-18 16:00 | disposition home or self-care (01) | LOC: ED 13:46 | DX: M79.672 Pain in left foot (principal); I10 Essential (primary) hypertension; Z87.891 Personal history of nicotine dependence; Z91.048 Other nonmedicinal substance allergy status; Z79.899 Other long term (current) drug therapy; Z79.01 Long term (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 ==

== ENCOUNTER 2022-05-30 13:01 | Emergency (ER) | payer MEDICARE, OTHER ==
[~2022-05-30] VITALS: Ht 170.2 cm; Wt 109.8 kg
[~2022-05-30 13:01] MED LIST changes: +IRBESARTAN300 MG PO; +LAMOTRIGINE25 MG PO; +LOVENOX120 MG/0.8 SUB-Q; +NORVASC5 MG PO; +OXYCODONE HCL5 MG PO; +STRATTERA40 MG PO; +TRAZODONE HCL100 MG PO; -TRAZODONE HCL50 MG PO
--- OUTSIDE RECORDS SUMMARY | 2022-05-30 13:04 | XMS ---
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 EJinny VISIT COUNT (12 MO.) 1 HELEN Merida TOTAL 1 NOTE: Visits indicate total known visits. ED/UCC VISIT TRACKING (12 MO.) 05/30/2022 13:02 HELEN Fierro [place] TYPE: Emergency COMPLAINT: - COUGH, SOB, EARS ACHE, BACK PAIN INPATIENT VISIT TRACKING (12 MO.) No inpatient visits to display in this time frame [email or web address]
[2022-05-30] MEDS ORDERED: TRAMADOL HCL100 M2 PO (13:42)
== END 2022-05-30 14:14 | disposition home or self-care (01) ==
LOC: ED 13:01
DX: U07.1 COVID-19 (principal); I10 Essential (primary) hypertension; Z87.891 Personal history of nicotine dependence; Z79.899 Other long term (current) drug therapy; Z79.01 Long term (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
CPT/HCPCS: 99283

== ENCOUNTER 2023-04-23 08:28 | Emergency (ER) | payer MEDICARE, OTHER ==
[~2023-04-23] VITALS: Ht 170.2 cm; Wt 122.5 kg
[~2023-04-23 08:28] MED LIST changes: +SERTRALINE HCL50 MG PO; +TRAMADOL HCL100 M2 PO
--- OUTSIDE RECORDS SUMMARY | 2023-04-23 08:31 | XMS ---
PreManage Notification: [employer] Security Community Health Educator Events No recent Security Events currently on file CRITERIA MET - TATUM CARE PROVIDERS -Ketty- Dentist: Food Service Attendant [facility] PHONE: [phone] [place] Physician 05/31/2019-Current PHONE: Unknown Gilmer has no Care Guidelines for this patient. Joseline VISIT COUNT (12 MO.) 2 HELEN Merida TOTAL 2 NOTE: Visits indicate total known visits. 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
[2023-04-23 09:05] VITALS: BP 120/66
== END 2023-04-23 09:07 | disposition home or self-care (01) ==
LOC: ED 08:28
DX: S91.002D Unspecified open wound, left ankle, subsequent encounter (principal); I10 Essential (primary) hypertension; Z91.048 Other nonmedicinal substance allergy status; Z79.01 Long term (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; Z79.899 Other long term (current) drug therapy; Z87.891 Personal history of nicotine dependence; X58.XXXD Exposure to other specified factors, subsequent encounter
CPT/HCPCS: 99282